=== PATIENT | female | born 1955 | race Caucasian/White ===

== ENCOUNTER → 2018-04-16 15:42 | Outpatient (CLI) | payer OTHER, SELFPAY ==
[2018-04-16 15:18] VITALS: BMI 22.6
--- NOTE | 2018-04-16 15:45 | BI_ITS ---
MAMMOGRAPHY - BILATERAL SCREENING REASON FOR EXAM: Female, 62 years old. Routine annual screening examination. PERTINENT HISTORY: Aunt with breast cancer. TECHNIQUE: Digital bilateral breast maite (3D mammographic acquisition) in the CC and MLO projections. 2-D mediolateral oblique (MLO) and craniocaudad (CC) views of both breasts were obtained. CAD: Full Field Digital Mammography with Computer Added Detection was performed. COMPARISON: Comparison is made with prior study dated April 11, 2017. FINDINGS: Breast Composition: The breasts are heterogeneously dense, which may obscure small masses. There are no dominant masses or suspicious calcifications. No other significant abnormalities are identified. There has been no significant change since the prior study. BI/SCREENING MAMM (CAD), BILAT IMPRESSION: Stable bilateral screening mammogram. Yearly follow-up mammogram recommended. (A) ASSESSMENT CATEGORY: BIRADS Category 1: Negative. A letter regarding these results will be sent to the patient by the facility within 30 days. Approximately 10% of breast cancers are not detected by mammography. A normal mammogram should not delay biopsy of a clinically suspicious abnormality. [id number] Electronically Signed: Torres Toussaint MD at 8:26 EST Tel [phone], Service support ,
--- OUTSIDE RECORDS SUMMARY | 2018-06-02 13:32 | XMS RPT_ITS ---
:1955 Author Organization OH[facility] Care Team Providers Name Role Phone ELIZA MAGAÑA Attending Unavailable SERGE SERVIN (PT) Attending Unavailable ELIZA MAGAÑA Referring Unavailable SERGE SERVIN (PT) Attending Unavailable ELIZA MAGAÑA Referring Unavailable Pricilla Live Attending Unavailable King, Mohan Primary Care Unavailable Maria TPricilla Attending Unavailable King, Mohan Referring Unavailable Maria T, Molly Attending Unavailable Maria TPricilla Referring Unavailable King, Mohan Primary Care Unavailable [place] Attending Unavailable King, Mohan Referring Unavailable King, Mohan Primary Care Unavailable PROBLEMS PROBLEMS DATE TYPE CONDITION / CODE ATTENDING STATUS SOURCE 04/17/2018 Unknown Z00.00 - Encounter Pricilla Live Active [place] for general adult [facility] medical examination Hospital without abnormal Repository findings / Z00.00(ICD-10) 04/17/2018 Unknown R53.83 - Other Maria TPricilla terrell Active [facility] fatigue / Community R53.83(ICD-10) Hospital Repository 04/16/2018 Unknown Z01.411 - Encounter Pricilla Live Active [place] for gynecological [facility] examination [facility] (general) (routine) Repository with abnormal findings / Z01.411(ICD-10) 01/29/2018 Active Metatarsalgia, GOLIAS, SERGE Active [facility] right foot / (PT) [facility] [place] M77.41(ICD-10) Repository 01/29/2018 Active Metatarsalgia, left GOLIAS, SERGE Active [facility] foot / (PT) [facility] [place] M77.42(ICD-10) Repository 03/04/2018 Active Posterior tibial GOLIAS, SERGE Active [facility] tendinitis, (PT) [facility] [place] unspecified leg / Repository M76.829(ICD-10) 01/07/2018 Active Pain, unspecified / NA Active [facility] R52(ICD-10) [facility] [place] Repository 04/15/2017 Unknown N94.9 - Unspecified [place], Molly Active [facility] condition Community associated with Hospital female genital Repository organs and menstrual cycle / N94.9(ICD-10) 04/15/2017 Unknown Z12.4 - Encounter Pricilla Live Active [place] for screening for Community malignant neoplasm Hospital of cervix / Repository Z12.4(ICD-10) PROCEDURES PROCEDURES No Procedure Records FoundRESULTS RESULTS PROGRESS Observed: 04/25/2018 Status: COMPLETED Source: [place] 8:54 AM [facility] RE[facility] HNO ID: [id number] Author: Shanthi Patel Service: (none) Author Type: Nurse Practitioner Type: Progress Notes Filed: 04/25/2018 9:10 AM Note Text: Subjective HPI Pt presents with c/o nasal congestion, nasal pressure, post nasal drip x 3 days. Pt was evaluated and treated by ENT on 04/23 for left bloody nose. Had cauterization. No bleeding since procedure. Was instructed to use afrin if nasal bleeding returned. Denies fever, chills, dyspnea, wheezing. Occasional dry, nonproductive cough. Has been taking mucinex Is leaving town today to meet 1 week old granddaughter. Review of Systems Constitutional: Negative for chills and fever. HENT: Positive for congestion. Negative for ear discharge, ear pain, sinus pain, sore throat and tinnitus. Respiratory: Positive for cough. Negative for sputum production, shortness of breath and wheezing. Cardiovascular: Negative for chest pain. Skin: Negative for rash. Neurological: Negative for headaches. Objective Physical Exam Constitutional: She is oriented to person, place, and time and well-developed, well-nourished, and in no distress. No distress. HENT: Head: Normocephalic. Right Ear: Hearing, tympanic membrane, external ear and ear canal normal. Left Ear: Hearing, tympanic membrane, external ear and ear canal normal. Nose: Nose normal. Right sinus exhibits no maxillary sinus tenderness and no frontal sinus tenderness. Left sinus exhibits no maxillary sinus tenderness and no frontal sinus tenderness. Mouth/Throat: Uvula is midline, oropharynx is clear and moist and mucous membranes are normal. No oropharyngeal exudate, posterior oropharyngeal edema, posterior oropharyngeal erythema or tonsillar abscesses. Eyes: Pupils are equal, round, and reactive to light. Conjunctivae are normal. Right eye exhibits no discharge. Left eye exhibits no discharge. Neck: Neck supple. Cardiovascular: Normal rate, regular rhythm and normal heart sounds. Exam reveals no gallop and no friction rub. No murmur heard. Pulmonary/Chest: Effort normal and breath sounds normal. No accessory muscle usage. No tachypnea. No respiratory distress. She has no decreased breath sounds (CTA, good air movement throughout, no cough noted during exam.). She has no wheezes. She has no rhonchi. She has no rales. Lymphadenopathy: She has no cervical adenopathy. Neurological: She is alert and oriented to person, place, and time. Skin: Skin is warm. She is not diaphoretic. BP 120/84 Pulse 84 Temp 37.3 ?C (99.1 ?F) (Tympanic) Resp 14 Wt 64 kg (141 lb) LMP 06/22/2007 BMI 22.76 kg/m? .Patient presents with: sinus pressure: x3 days PAST MEDICAL HISTORY Diagnosis Date - Arthritis knee cartilage - Basal cell carcinoma - History of torn meniscus of left knee 04/12/2015 surgery 04/12/2015 - IRON DEFIC ANEMIA NOS 12/15/2006 - Malignant melanoma of skin 03/24/09 Back- follows w/Dr. Comer - Squamous cell carcinoma - Unspecified constipation PAST SURGICAL HISTORY Procedure Laterality Date - COLONOSCOP W/ OR W/O [facility] SPEC 02/09/2010 Colonoscopy - KNEE SCOPE,DIAGNOSTIC 08/01/2008 Arthroscopy, knee - LEG VEIN LEFT 07/2012 laser ablation of veins on both legs - melanoma skin 03/24/09 malignant- back, Dr. Rodriguez removed - PAST SURGICAL HISTORY OF 2003 BASAL CELL CARCINOMA REMOVED FROM HER BACK - PAST SURGICAL HISTORY OF 2005 left shoulder surgery - REMOVAL OF TONSILS,<14 Y/O had done as an adult - REPAIR ROTATOR CUFF,ACUTE 2003 Rotator cuff repair RIGHT SHOULDER ALLERGIES Patient has no known allergies. MEDICATIONS CALCIUM 500 MG TAB Take one(1) tablet twice daily. multivitamin tablet Take 1 tablet by mouth once daily. pseudoephedrine-guaiFENesin (MUCINEX D) 60-600 mg per tablet Take 1 tablet by mouth every 12 hours as needed for Cold/Allergy Symptoms. azithromycin (ZITHROMAX Z-MED) 250 mg tablet Take 2 tablets by mouth day one, then 1 tablet daily until gone. benzonatate (TESSALON PERLES) 100 mg capsule Take 1 capsule by mouth three times daily as needed. celecoxib (CELEBREX) 100 mg capsule Take 1 capsule by mouth once daily. fluticasone (FLONASE) 50 mcg/actuation nasal spray Use 2 Sprays in each nostril once daily. Rinse mouth after use. guaiFENesin (MUCINEX) 600 mg 12 hr tablet Take 1 tablet by mouth twice daily. predniSONE (DELTASONE) 20 mg tablet Take 1 tablet by mouth once daily for 5 days. Take daily with food. FAMILY HISTORY Problem Relation Age of Onset - Coronary Artery Disease Father - Diabetes Father - other (hypotension [Other]) Mother - Heart Mother - Alzheimer's Disease Mother - other (multiple myeloma [Other]) Father - Breast Cancer Maternal Aunt strong breast cancer on maternal side - other (heart disease [Other]) Sister - Diabetes Brother x 2 - Colon Cancer Brother Social History Substance Use Topics - Smoking status: Never Smoker - Smokeless tobacco: Never Used - Alcohol use Yes Comment: occasionally ASSESSMENT/PLAN: 1. Viral URI with cough - ICD9: 465.9, ICD10: J06.9, B97.89 - Discussed viral etiology and rationale for treatment. - Symptomatic treatment with prn analgesia - Supportive care with fluids and rest - Follow up in 3-5 days if symptoms persist or sooner if worsening of symptoms - BENZONATATE 100 MG CAPSULE - PREDNISONE 20 MG TABLET - FLUTICASONE 50 MCG/ACTUATION NASAL SPRAY,SUSPENSION Reviewed Viral URI education and tx supportive care. Explained contagious and risks to . Pt verbalizes understanding. The patient is instructed to return or seek emergency treatment if symptoms become worse or with any acute change in condition. The patient verbalizes understanding and is in agreement with plan of care. Shanthi Patel CNP CNOV Observed: 04/25/2018 Status: COMPLETED Source: [place] 8:15 AM [facility] REPOSITORY [facility] ([id number]) 1955 F Date Time Provider Department 04/25/18 8:15 AM SHANTHI PATEL RONDA During your visit today, we recorded the following information about you: Temperature Pulse Respiration Blood pressure 99.1 degrees 84/minute 14/minute 120/84 Weight 64 kg Shanthi Patel APRN.CNP 04/25/2018 8:34 AM Signed COLD AND SINUS PATIENT INSTRUCTIONS As a decongestant: Use a nasal saline 3 times daily Directions; 1-2 quirts in each nostril Saline suggestions; [place] or [place] or Salt and Water At bedtime to help with congestion: Use a cool mist vaporizer May use Vicks Vapor Rub on the chest Elevate the head to aid with coughing post nasal drip Shanthi Patel APRN.CNP 04/25/2018 9:10 AM Signed Subjective HPI Pt presents with c/o nasal congestion, nasal pressure, post nasal drip x 3 days. Pt was evaluated and treated by ENT on 04/23 for left bloody nose. Had cauterization. No bleeding since procedure. Was instructed to use afrin if nasal bleeding returned. Denies fever, chills, dyspnea, wheezing. Occasional dry, nonproductive cough. Has been taking mucinex Is leaving town today to meet 1 week old granddaughter. Review of Systems Constitutional: Negative for chills and fever. HENT: Positive for congestion. Negative for ear discharge, ear pain, sinus pain, sore throat and tinnitus. Respiratory: Positive for cough. Negative for sputum production, shortness of breath and wheezing. Cardiovascular: Negative for chest pain. Skin: Negative for rash. Neurological: Negative for headaches. Objective Physical Exam Constitutional: She is oriented to person, place, and time and well-developed, well-nourished, and in no distress. No distress. HENT: Head: Normocephalic. Right Ear: Hearing, tympanic membrane, external ear and ear canal normal. Left Ear: Hearing, tympanic membrane, external ear and ear canal normal. Nose: Nose normal. Right sinus exhibits no maxillary sinus tenderness and no frontal sinus tenderness. Left sinus exhibits no maxillary sinus tenderness and no frontal sinus tenderness. Mouth/Throat: Uvula is midline, oropharynx is clear and moist and mucous membranes are normal. No oropharyngeal exudate, posterior oropharyngeal edema, posterior oropharyngeal erythema or tonsillar abscesses. Eyes: Pupils are equal, round, and reactive to light. Conjunctivae are normal. Right eye exhibits no discharge. Left eye exhibits no discharge. Neck: Neck supple. Cardiovascular: Normal rate, regular rhythm and normal heart sounds. Exam reveals no gallop and no friction rub. No murmur heard. Pulmonary/Chest: Effort normal and breath sounds normal. No accessory muscle usage. No tachypnea. No respiratory distress. She has no decreased breath sounds (CTA, good air movement throughout, no cough noted during exam.). She has no wheezes. She has no rhonchi. She has no rales. Lymphadenopathy: She has no cervical adenopathy. Neurological: She is alert and oriented to person, place, and time. Skin: Skin is warm. She is not diaphoretic. BP 120/84 Pulse 84 Temp 37.3 ?C (99.1 ?F) (Tympanic) Resp 14 Wt 64 kg (141 lb) LMP 06/22/2007 BMI 22.76 kg/m? .Patient presents with: sinus pressure: x3 days PAST MEDICAL HISTORY Diagnosis Date - Arthritis knee cartilage - Basal cell carcinoma - History of torn meniscus of left knee 04/12/2015 surgery 04/12/2015 - IRON DEFIC ANEMIA NOS 12/15/2006 - Malignant melanoma of skin 03/24/09 Back- follows w/Dr. Comer - Squamous cell carcinoma - Unspecified constipation PAST SURGICAL HISTORY Procedure Laterality Date - COLONOSCOP W/ OR W/O [facility] SPEC 02/09/2010 Colonoscopy - KNEE SCOPE,DIAGNOSTIC 08/01/2008 Arthroscopy, knee - LEG VEIN LEFT 07/2012 laser ablation of veins on both legs - melanoma skin 03/24/09 malignant- back, Dr. Rodriguez removed - PAST SURGICAL HISTORY OF 2003 BASAL CELL CARCINOMA REMOVED FROM HER BACK - PAST SURGICAL HISTORY OF 2005 left shoulder surgery - REMOVAL OF TONSILS,<14 Y/O had done as an adult - REPAIR ROTATOR CUFF,ACUTE 2003 Rotator cuff repair RIGHT SHOULDER ALLERGIES Patient has no known allergies. MEDICATIONS CALCIUM 500 MG TAB Take one(1) tablet twice daily. multivitamin tablet Take 1 tablet by mouth once daily. pseudoephedrine-guaiFENesin (MUCINEX D) 60-600 mg per tablet Take 1 tablet by mouth every 12 hours as needed for Cold/Allergy Symptoms. azithromycin (ZITHROMAX Z-MED) 250 mg tablet Take 2 tablets by mouth day one, then 1 tablet daily until gone. benzonatate (TESSALON PERLES) 100 mg capsule Take 1 capsule by mouth three times daily as needed. celecoxib (CELEBREX) 100 mg capsule Take 1 capsule by mouth once daily. fluticasone (FLONASE) 50 mcg/actuation nasal spray Use 2 Sprays in each nostril once daily. Rinse mouth after use. guaiFENesin (MUCINEX) 600 mg 12 hr tablet Take 1 tablet by mouth twice daily. predniSONE (DELTASONE) 20 mg tablet Take 1 tablet by mouth once daily for 5 days. Take daily with food. FAMILY HISTORY Problem Relation Age of Onset - Coronary Artery Disease Father - Diabetes Father - other (hypotension [Other]) Mother - Heart Mother - Alzheimer's Disease Mother - other (multiple myeloma [Other]) Father - Breast Cancer Maternal Aunt strong breast cancer on maternal side - other (heart disease [Other]) Sister - Diabetes Brother x 2 - Colon Cancer Brother Social History Substance Use Topics - Smoking status: Never Smoker - Smokeless tobacco: Never Used - Alcohol use Yes Comment: occasionally ASSESSMENT/PLAN: 1. Viral URI with cough - ICD9: 465.9, ICD10: J06.9, B97.89 - Discussed viral etiology and rationale for treatment. - Symptomatic treatment with prn analgesia - Supportive care with fluids and rest - Follow up in 3-5 days if symptoms persist or sooner if worsening of symptoms - BENZONATATE 100 MG CAPSULE - PREDNISONE 20 MG TABLET - FLUTICASONE 50 MCG/ACTUATION NASAL SPRAY,SUSPENSION Reviewed Viral URI education and tx supportive care. Explained contagious and risks to . Pt verbalizes understanding. The patient is instructed to return or seek emergency treatment if symptoms become worse or with any acute change in condition. The patient verbalizes understanding and is in agreement with plan of care. Shanthi Patel CNP Referring Provider: SELF [200] Allergies As of Date: 04/25/2018 (No Known Allergies) Date Reviewed: 04/25/2018 Reviewed by: Brittaney Hutton Ma - Fully Assessed Reason for Visit: sinus pressure [Other] Cmt: x3 days Primary Visit Diagnosis:Viral URI with cough [J06.9, B97.89] Order(s):benzonatate (TESSALON PERLES) 100 mg capsuleTake 1 capsule by mouth three times daily as needed.Disp: 40 capsuleRfl: 0 predniSONE (DELTASONE) 20 mg tabletTake 1 tablet by mouth once daily for 5 days. Take daily with food.Disp: 10 tabletRfl: 0 fluticasone (FLONASE) 50 mcg/actuation nasal sprayUse 2 Sprays in each nostril once daily. Rinse mouth after use.Disp: 1 BottleRfl: 1 Prescriptions as of 04/25/2018 Sig: * CALCIUM 500 MG TABLET Take one(1) tablet twice tuan* MULTIVITAMIN TABLET Take 1 tablet by mouth once d* PSEUDOEPHEDRINE-GUAIFENESIN E* Take 1 tablet by mouth every * AZITHROMYCIN 250 MG TABLET Take 2 tablets by mouth day o* Patient not taking: Reported on 04/25/2018 BENZONATATE 100 MG CAPSULE Take 1 capsule by mouth three* CELECOXIB 100 MG CAPSULE Take 1 capsule by mouth once * Patient not taking: Reported on 04/25/2018 FLUTICASONE 50 MCG/ACTUATION * Use 2 Sprays in each nostril * GUAIFENESIN ER 600 MG TABLET,* Take 1 tablet by mouth twice * Patient not taking: Reported on 04/25/2018 PREDNISONE 20 MG TABLET Take 1 tablet by mouth once d* Problem List As Of Date 04/25/2018 Noted Resolved Iron deficiency anemia, unspecified [D50.9] INVALID FOR*03/23/2015 Other seborrheic keratosis [L82.1] INVALID FOR*03/23/2015 ATROPHIC VAGINITIS [N95.2] INVALID FOR* RECTOCELE [N81.6] INVALID FOR* Disorder of bone and cartilage, unspecified [M8*INVALID FOR*02/09/2013 Calcaneal spur [M77.30] INVALID FOR*03/23/2015 Heel pain [M79.673] INVALID FOR*03/23/2015 Elevated cholesterol [E78.00] INVALID FOR* Osteopenia [M85.80] INVALID FOR* Metatarsalgia of both feet [M77.41, M77.42] INVALID FOR* Posterior tibial tendon dysfunction [M76.829] INVALID FOR* Other instructions from your clinician: COLD AND SINUS PATIENT INSTRUCTIONS As a decongestant: Use a nasal saline 3 times daily Directions; 1-2 quirts in each nostril Saline suggestions; [place] or [place] or Salt and Water At bedtime to help with congestion: Use a cool mist vaporizer May use Vicks Vapor Rub on the chest Elevate the head to aid with coughing post nasal drip Prescriptions ordered this encounter Disp Refills Start End BENZONATATE 100 MG CAPSULE 40 c* 0 04/25/2018 Route: ORAL Sig: Take 1 capsule by mouth three times daily as needed. PREDNISONE 20 MG TABLET 10 t* 0 04/25/2018 04/30/2018 Route: ORAL Sig: Take 1 tablet by mouth once daily for 5 days. Take daily with food. FLUTICASONE 50 MCG/ACTUATION NASAL S* 1 French* 1 04/25/2018 Route: EACH NOSTRIL Sig: Use 2 Sprays in each nostril once daily. Rinse mouth after use. Encounter Status:Closed by SHANTHI PATEL CNP on 04/25/18 LIPID PROFILE Collected: 04/17/2018 Status: F Source: [place] 7:24 AM [facility] [place] TYPE CODE TESTS RESULT OUT OF RANGE REFERENCE UNITS LAB L501.4900 200 mg/dL Normal CHOL 196 Result Comment: <200 mg/dL Desirable 200-240 mg/dL Borderline >240 mg/dL High Risk LAB L501.5000 mg/dL Normal TRIG 40 Result Comment: The drugs N-Acetylcysteine and Metamizole may falsely depress this assay. Serum Triglycerides Reference Interval Normal <150 mg/dL Borderline high 150 - 199 mg/dL High 200 - 499 mg/dL Very High > or = 500 mg/dL LAB L501.6400 mg/dL Normal HDL 98 Result Comment: The drugs N-Acetylcysteine and Metamizole may falsely depress this assay. Reference Range HDL <40 mg/dL Low HDL Cholesterol HDL >or= 60 mg/dL High HDL Cholesterol LAB L501.6500 0-130 mg/dL Normal LDL 90 LAB L501.6600 5-40 mg/dL Normal VLDL 8 Performed By: #### L500.4100, L501.0100, L501.9520 #### [facility] [address] [place], [address] GLUCOSE Collected: 04/17/2018 Status: F Source: [place] 7:24 AM [facility] TYPE CODE TESTS RESULT OUT OF RANGE REFERENCE UNITS LAB L501.0100 74-106 mg/dL Normal GLU 105 Result Comment: Fasting Glucose result from 100 to 125 mg/dL suggests IMPAIRED HOMEOSTASIS per A.D.A. criteria. Please note revised GLUCOSE reference range effective 2017. Performed By: #### L500.4100, L501.0100, L501.9520 #### [facility] [address] [place], [address] THYROID STIM HORMONE Collected: 04/17/2018 Status: F Source: [place] (TSH) 7:24 AM [facility] TYPE CODE TESTS RESULT OUT OF RANGE REFERENCE UNITS LAB L501.9520 0.358-3.74 uIU/mL Normal TSH 3.45 Performed By: #### L500.4100, L501.0100, L501.9520 #### [facility] [address] [place], [address] SCREENING MAMM (CAD), Observed: 04/16/2018 Status: F Source: [place] BIL[place] 3:45 PM [facility] Services [address] [place] [address] SCREENING MAMM (CAD), BILAT MR#: [id number] Acct: [id number] Name: MARY GARCIA Rep #: [id number] : 1955 F 62 From: Torres Toussaint MD PCP: Mohan Torres, Status: REG CLI Study: SCREENING MAMM (CAD), BILAT Date of Exam: 04/16/18 Exam# [id number] Ordering Dr: Pricilla Live RAPIER INSERTION LOOM FIXER-C MAMMOGRAPHY - BILATERAL SCREENING REASON FOR EXAM: Female, 62 years old. Routine annual screening examination. PERTINENT HISTORY: Aunt with breast cancer. TECHNIQUE: Digital bilateral breast maite (3D mammographic acquisition) in the CC and MLO projections. 2-D mediolateral oblique (MLO) and craniocaudad (CC) views of both breasts were obtained. CAD: Full Field Digital Mammography with Computer Added Detection was performed. COMPARISON: Comparison is made with prior study dated April 11, 2017. FINDINGS: Breast Composition: The breasts are heterogeneously dense, which may obscure small masses. There are no dominant masses or suspicious calcifications. No other significant abnormalities are identified. There has been no significant change since the prior study. BI/SCREENING MAMM (CAD), BILAT IMPRESSION: Stable bilateral screening mammogram. Yearly follow-up mammogram recommended. (A) ASSESSMENT CATEGORY: BIRADS Category 1: Negative. A letter regarding these results will be sent to the patient by the facility within 30 days. Approximately 10% of breast cancers are not detected by mammography. A normal mammogram should not delay biopsy of a clinically suspicious abnormality. 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 Is patient in pain?: No Allergies No Known Allergies Allergy (Verified 04/16/18 15:18) Medications calcium carbonate 500 mg calcium (1,250 mg) tablet 500 mg PO BID tab 04/15/17 [History Confirmed 04/15/17] celecoxib 200 mg capsule 200 mg PO QDAY 04/15/17 [History Confirmed 04/15/17] Is last menstrual period known: No Post menopausal: Yes Patient : No : No PFSH Surgical History H/O arthroscopic knee surgery (Acute) H/O rotator cuff surgery (Acute) Total knee replacement status (Acute) Family History Father Diabetes Heart disease Multiple myeloma Mother Osteoporosis Alzheimers disease Aunt Breast cancer 3 maternal aunts Social History Smoking Status: Never smoker alcohol intake: current substance use type: does not use caffeine: Yes what type of physical activity do you participate in: aerobics frequency: 5-6 times per week seatbelt use: always additional social history: [place]- 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 DateName GA/Weeks Outcome Route Bth WeighInfant GeLabor LgtAnesthesiDel LocatProvider FOB t n h a n HPI ANNUAL: Details: MARY GARCIA is a 62 year old who presents for annual exam. NO concerns. Retiring next week Last PAP: 2017 History of abnormal PAP: no Last mammogram: today, pending History of abnormal mammogram: no Colon cancer screenin Female Reproductive History Questions: Metorrhagia: No, Sexually active: Yes, Dyspareunia: No, PCB: No ROS Const Constitutional: Denies fatigue, weight gain or weight loss Cardio Card: Denies chest pain Resp Resp: Denies cough or shortness of breath with activity GI GI: Denies abdominal pain, constipation, change in stools, vomiting or bloating : Reports as per HPI; denies urinary frequency, pelvic pain, urinary urgency, vaginal discharge, vaginal itching, urinary incontinence or difficulty urinating Exam Const General: cooperative, healthy appearing, no acute distress, well developed Orientation: alert, oriented to person, oriented to place HENMT Head: normal to inspection Neck Neck: normal visual inspection Thyroid: thyroid normal Lymphatic: no lymphadenopathy noted Chest Breast inspection: normal inspection of the breasts, normal inspection of the axillae Breast palpation: normal palpation of the breasts, normal palpation of the axillae, no axillary lymphadenopathy Resp Effort AND Inspection: normal respiratory effort GI Palpation: soft, nontender, no masses Rectal Exam: deferred External Female Exam: normal external appearance, normal appearance of the urethra Urethra: normal appearance of the urethra, normal palpation Speculum Exam - Vagina: normal appearance of the vagina, normal vaginal discharge Speculum Exam - Cervix: normal appearance of the cervix Bimanual Exam- Vagina AND Uterus: normal bimanual exam, uterine size normal, uterine shape normal, uterus non-tender Bimanual Exam- Adnexa, other: normal adnexae, no adnexal masses, adnexae non-tender, pelvic support normal Pelvic Support: normal Neuro General: alert, oriented x3 Psych Affect: normal affect Assessment AND Plan Problems 1. 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 [place] [address] OFFICE VISIT Date of Service: 04/15/17 MR#: [id number] Acct: [id number] Name: MARY GARCIA Rep #: [id number] : 1955 Provider: SABRINA Live Age/Sex: 61/F [place] [facility] [place] Signed with Addenda ADDENDUM by SABRINA Live on 03/10/18 at 0941 Addendum entered and electronically signed by SHANNA Henry 03/10/18 09:41: Rectal exam was deferred. No masses palpated Assessment AND Plan 1. Encounter for gynecological examination with abnormal finding Z01.411; Z01.411 Plan - SHANNA Henry Reviewed diet and exercise Pap: thin prep pap and HPV collected Normal recent mammogram Colonoscopy up to date RTO 1 year, prn with problems 2. Adnexal mass N94.9 Jorge - SHANNA Henry Pelvic ultrasound and TV probe if needed. Consider stool in colon Orders Orders: 3. 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 DateName GA/Weeks Outcome Route Bth WeighInfant GeLabor LgtAnesthesiDel LocatProvider FOB t n h a n PFSH Medical History Adnexal mass (Acute) Encounter for screening for cervical cancer (Acute) Routine gynecological examination (Acute) Surgical History H/O arthroscopic knee surgery (Acute) H/O rotator cuff surgery (Acute) Total knee replacement status (Acute) Family History Father Diabetes Heart disease Multiple myeloma Mother Osteoporosis Alzheimers disease Aunt Breast cancer 3 maternal aunts Social History Smoking Status: Never smoker alcohol intake: current substance use type: does not use caffeine: Yes what type of physical activity do you participate in: aerobics frequency: 5-6 times per week seatbelt use: always additional social history: [place]- 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 Denies concerns. Due for pap-never had abnormal. Mammogram recent. Colonoscopy: 2010: repeat 10 years ROS Const Constitutional: Denies fatigue, weight gain or weight loss Cardio Card: Denies chest pain Resp Resp: Denies cough or shortness of breath with activity GI GI: Denies abdominal pain, constipation, change in stools, vomiting or bloating : Reports as per HPI; denies urinary frequency, pelvic pain, urinary urgency, vaginal discharge, vaginal itching, urinary incontinence or difficulty urinating Exam Const General: cooperative, healthy appearing, no acute distress, well developed Orientation: alert, oriented to person, oriented to place [facility] Head: normal to inspection Neck Neck: normal visual inspection Thyroid: thyroid normal Lymphatic: no lymphadenopathy noted Chest Breast inspection: normal inspection of the breasts, normal inspection of the axillae Breast palpation: normal palpation of the breasts, normal palpation of the axillae, no axillary lymphadenopathy Resp Effort AND Inspection: normal respiratory effort Auscultation: clear to auscultation bilaterally Cardio Rate: regular rate Rhythm: regular rhythm GI Palpation: soft, nontender, no masses Rectal Exam: mass, deferred External Female Exam: normal external appearance, normal appearance of the urethra Urethra: normal appearance of the urethra, normal palpation Speculum Exam - Vagina: normal appearance of the vagina, normal vaginal discharge Speculum Exam - Cervix: normal appearance of the cervix Bimanual Exam- Vagina AND Uterus: uterine size normal, uterine shape normal, uterus non-tender Bimanual Exam- Adnexa, other: adnexae non-tender, pelvic support normal, no tenderness, adnexal mass (mobile 2cm mass right adnexa, nontender) Pelvic Support: normal Neuro General: alert, oriented x3 Psych Affect: normal affect Assessment AND Plan 1. Encounter for gynecological examination with abnormal finding Z01.411; Z01.411 2. Adnexal mass N94.9 Plan Pelvic ultrasound and TV probe if needed. Consider stool in colon Orders Orders: 3. Encounter for screening for cervical cancer Z12.4 Plan thin prep pap with HPV collected 04/15/17 8153 <Electronically signed by Pricilla OTERO> Date Pricilla OTERO Cosigner Signature: Date (if applicable) CC: PROGRESS Observed: 03/04/2018 Status: COMPLETED Source: [place] 6:59 PM [facility] REPOSITORY HNO ID: [id number] Author: Serge (Pt) Gareth Service: (none) Author Type: Physical Therapist Type: Progress Notes Filed: 03/04/2018 7:03 PM Note Text: [facility] DME ISSUE NOTE Patient identified by name and date: Yes SUBJECTIVE: Mary Garcia is a 62 year old female seen today for fitting and pickup of custom foot orthotics. DME Delivery: Pt was educated on wear schedule and care of custom foot orthotics. Pt was educated on the option of having orthotics refurbished as needed in the future as long as shell is performing it's intended function well. Pt was educated on approximate cost of refurbishing orthotics and an approximate time frame when this might be necessary. Pt was urged to follow the wear schedule and to call with any questions or concerns. Pt was instructed to start with wearing orthotics one hour the first day and then to add one hour of wear time per day until multimedia instructional designer wear is achieved. Pt was educated on how to remove insoles from shoes and then place orthotics in shoes. The fit of orthotics was assessed with pt standing, with and without shoes. The comfort of orthotics was assessed with pt standing and walking with orthotics in shoes. Pt denied any rubbing or pinching and felt that fit of custom orthotics was correct. Contact information for this therapist was provided to patient. Custom biomechanical foot orthotics with serial number: #[id number] were issued to patient and proof of receipt form signed by pt and therapist. All specifications for custom foot orthotics can be found in orthotic evaluation visit note. Education: Learning preferences: Explanation, Demonstration, Performance and Printed Materials Barriers: No barriers Learning/educational needs: Orthotic Fit Education Provided: See Treatment Below Audience: Patient Method of education: Explanation, Demonstration, Performance and Printed Materials Response: Applied knowledge, Demonstrated skill and Verbalized understanding Planned Interventions: Follow up as needed for brace fitting/issues. Billing:[facility]: Equipment: [id number] pair of custom foot orthotics No charge for time. Total time: 20 minutes Serge Servin PT CNTHERAPY Observed: 03/04/2018 Status: COMPLETED Source: [place] 6:15 PM [facility] REPOSITORY OT/PT/Speech Visit (PTWS) MARY GARCIA ([id number]) 1955 F Date Time Provider Department 03/04/18 6:15 PM [facility] (PT) PTWS Date Time Provider Department Center 03/04/2018 6:15 PM [id number], BRENT (PT) PTWS [facility] [place] Reason for Visit: PT Discharge [752] Primary Visit Diagnosis:Posterior tibial tendon dysfunction [M76.829] Other Visit Diagnosis:Metatarsalgia of both feet [M77.41, M77.42] Allergies As of Date: 03/04/2018 (No Known Allergies) Date Reviewed: 01/07/2018 Reviewed by: Brittaney Hutton Ma - Fully Assessed Prescriptions as of 03/04/2018 Sig: PSEUDOEPHEDRINE-GUAIFENESIN E* Take 1 tablet by mouth every * AZITHROMYCIN 250 MG TABLET Take 2 tablets by mouth day o* GUAIFENESIN ER 600 MG TABLET,* Take 1 tablet by mouth twice * CELECOXIB 100 MG CAPSULE Take 1 capsule by mouth once * MULTIVITAMIN TABLET Take 1 tablet by mouth once d* * CALCIUM 500 MG TABLET Take one(1) tablet twice tuan* Progress Notes: Serge Servin PT 03/04/2018 7:03 PM Signed [facility] DME ISSUE NOTE Patient identified by name and date: Yes SUBJECTIVE: Mary Garcia is a 62 year old female seen today for fitting and pickup of custom foot orthotics. DME Delivery: Pt was educated on wear schedule and care of custom foot orthotics. Pt was educated on the option of having orthotics refurbished as needed in the future as long as shell is performing it's intended function well. Pt was educated on approximate cost of refurbishing orthotics and an approximate time frame when this might be necessary. Pt was urged to follow the wear schedule and to call with any questions or concerns. Pt was instructed to start with wearing orthotics one hour the first day and then to add one hour of wear time per day until multimedia instructional designer wear is achieved. Pt was educated on how to remove insoles from shoes and then place orthotics in shoes. The fit of orthotics was assessed with pt standing, with and without shoes. The comfort of orthotics was assessed with pt standing and walking with orthotics in shoes. Pt denied any rubbing or pinching and felt that fit of custom orthotics was correct. Contact information for this therapist was provided to patient. Custom biomechanical foot orthotics with serial number: #[id number] were issued to patient and proof of receipt form signed by pt and therapist. All specifications for custom foot orthotics can be found in orthotic evaluation visit note. Education: Learning preferences: Explanation, Demonstration, Performance and Printed Materials Barriers: No barriers Learning/educational needs: Orthotic Fit Education Provided: See Treatment Below Audience: Patient Method of education: Explanation, Demonstration, Performance and Printed Materials Response: Applied knowledge, Demonstrated skill and Verbalized understanding Planned Interventions: Follow up as needed for brace fitting/issues. Billing:[facility]: Equipment: L3020 pair of custom foot orthotics No charge for time. Total time: 20 minutes Serge Servin PT Letter Text [address] [place] [address] PROOF OF ORDER AND PRESCRIPTION RECEIPT March 04, 2018 Quantity: 1 Pair Mary Garcia Item(s): Custom Foot Orthotics- [id number] I have received this date: March 04, 2018. That has been prescribed by: Dr. Eliza Magaña I have been informed that I can purchase this product elsewhere, however, I have elected to receive the above listed new durable medical equipment as prescribed. I have been informed that in the event I received Diabetic Shoes, they can not be returned and are not refundable. I have been given instruction on the use of the custom foot orthotic devices indicated above and understand the intended purpose as well as limitations of the device. I also understand that the [facility] will not be responsible for any modifications to this device not ordered by the prescribing marketing sales representative(s) of the [facility]. I understand that should I have any additional questions or concerns to call the telephone number listed above for assistance Signature of Patient/Recipient or Authorized Importer Or Exporter Date Signature of [facility] Importer Or Exporter Date [employer]Star Federal Guidelines: [email or web address] 08/05/05 A copy of this letter has been given to the above mentioned patient. PROGRESS Observed: 01/29/2018 Status: COMPLETED Source: [place] 11:55 AM [facility] REPOSITORY O ID: [id number] Author: Serge (Pt) Gareth Service: (none) Author Type: Physical Therapist Type: Progress Notes Filed: 01/29/2018 11:17 PM Note Text: Episode Visit Count: 1 Therapist That Will Oversee The Plan Of Care: Serge Servin PT Start of Care Date: 01/29/18 Onset Date: 07/29/17 Patient Identified by Name and Date of : Yes REHABILITATION AND SPORTS THERAPY PHYSICAL THERAPY EVALUATION PLAN OF CARE: Assessment: Mary Garcia presents with the chief complaint of B foot pain that is aggravated by WBing activities. She presents with impairments of pain and limitations with exercise. She may benefit from skilled therapy services to improve functional biomechanics of B feet/ankles via custom foot orthotics. Prognosis: Excellent Excellent due to: positive past response to therapy;good overall health status;current objective clinical presentation;within-session changes at evaluation;good support system/ coping skills Goals for Episode of Care: created on 01/29/18 through 02/26/18 Pt will be educated on proper wear schedule and care of custom biomechanical foot orthotics Pt will be provided with custom biomechanical B foot orthotics that improve foot and ankle biomechanics as intended with proper fit and function. Planned Interventions, Frequency, and Duration: Current Frequency: 1 visit Duration: 1 visit Total Number of Visits Planned: 2 (1 visit for evaluation and 1 visit for fitting and picket labor union) Planned Treatment Interventions: Orthosis / DME;Patient/Family/Caregiver Education PLAN FOR NEXT VISIT: fitting and picket labor union of custom foot orthotics Patient demonstrates good understanding of plan of care and treatment. The above goals and plan of care were discussed and agreed upon by patient/family. SUBJECTIVE: Mary Garcia is a 62 year old female seen today for intermittent pain in plantar surface of B feet that is aggravated by prolonged weight bearing activities. She received custom foot orthotics in 2011 and these worked well for many years but approximately 6 months ago it seems that the orthotics are not as effective. She reports that pain is worse when she does not wear othotics but not as pain- free with them as she was when they were first prescribed. She reports that the only change is that she had a total knee replacement in February of 2017. She has decreased her running by half since TKA. Functional Limitations: running;recreational activities;walking in the community;heavy exertion Prior Level of Function: Independent without limitations Patient Goals: decrease pain through new and more effective orthotics Intake Information: Prescription present Previous Treatment: Orthotics? Pain Score: 1/10 (1/10 currently and 3-4/10 at worst) Pain Location: Foot - Right;Foot - Left (plantar surface of both feet) Description: Aching Frequency: Intermittent Post Treatment Pain Score: No Change OBJECTIVE MEASURES WITH LEVEL OF FUNCTION: Plantar Callus Pattern: Right: none Left: none Supine: ROM: Ankle Dorsiflexion: Right: AROM:14 degrees and Left: AROM: 15 degrees Calcaneal eversion: Right: WNL Left: WNL Hallux dorsiflexion: Open chain right: >65 left: >65 Closed chain right: >9 left: >9 Alignment: Rest: Medial arch appearance: Right:High Left:High Equinus: Right:forefoot Left:forefoot Prone: Alignment: Subtalar neutral: Right: rearfoot: 14 degrees varus Forefoot: 8 degrees varus Left: Rearfoot: 7 degrees varus Forefoot: 8 degrees varus First Ray Position: Right: pf Left: pf First Ray Mobility: Right: semi-rigid Left:semi-rigid WEIGHT BEARING: Alignment: Rest: Medial arch appearance: Right: Average Left Average Calcaneal stance position: Right: rectus Left everted Knee position: Right: Straight Left Straight Subtalar Neutral: Medial arch appearance: Right High Left:High Calcaneal stance position: Right: inverted Left: inverted Forefoot position: Right: flat on ground Left: off ground Knee position: Right: straight Left straight Mobility: Hallux dorsiflexion Closed chain: Right: >9 Left >9 Midtarsal Mobility: (navicular drop) Right: norm 6-8mm Left:norm 6-8mm Rearfoot excursion: Right:<4 hypo Left: 4-6 norm FUNCTIONAL EVALUATION: Balance(SL): ability/quality Right: increased pronation Left: increased pronation Balance Excursion Test (distance/quality): *Right: Improved performance with: 8 degree rearfoot 2 degree forefoot wedges *Left: Improved performance with: 6 degree rearfoot 2 degree forefoot wedges Squat Test: Knees: valgus Right*improved with 8 degrees rearfoot 2 degree forefoot wedges Left*improved with 6 degrees rear foot 2 degree forefoot wedges Gait Assessment: Walking: no deviations currently Running: N/T Orthotic Design Request Shoe size: 9. Weight:140 pounds. Orthotic (shell): Performance RX semi flexible Plate Specifications: Heel Cup Low (12mm), Device Width Bisect 1st Posting: right: 2 degrees for forefoot Intrinsic and 5 degrees for rearfoot Extrinsic left: 2 degrees for forefoot Intrinsic and 8 degrees for rearfoot Extrinsic Additions: none Padding: Type: Poron STD Thickness:1/8 Padding Length:heels to toes Accommodations: none Top Covers: Material: leatherette STD Length:to toes Classification of foot type: Compensated rearfoot varus Education: Education Learning Preferences: Demonstration;Explanation Barriers: None Learning/educational needs: Brace Fit Education Provided: Yes, see treatment interventions for education provided Education Provided To: Patient Education Mode/Type: Demonstration;Explanation/Discussion;Literature/Printed Materials;Performance Response to Education/Teach Back: States/Identifies;Requires Review/Additional Education TREATMENT: Evaluation Evaluation Orthotics Management and Training: A thorough and complete biomechanical assessment completed and all results explained to pt in detail. Pt. was educated on the anatomy of affected area, possible source of symptoms and rationale for proposed treatment plan. A variety of different sized wedges were used as trials for posting at both forefoot and rearfoot. Pt ability with single leg stance and single leg squats was tested without wedges and compared to each trial with different size wedges. Once stability was achieved and biomechanics improved, wedge size recorded for future posting prescription. With patient prone, subtalar neutral position digital scans were made of bilateral feet. These scans and and all supporting documentation was prepared for shipment to lab so that custom foot orthotics can be fabricated. Pt was educated on the process that we will follow once custom orthotics arrive in this department and all of the patient's questions were answered. Skilled Intervention: Clinical knowledge and skills required for custom orthotic fabrication and wearing schedule Patient/Family/Caregiver Education: Precautions, purpose and use of orthosis Wearing schedule explained to patient Discussed management of any symptoms related to wearing the orthosis Billing: [facility]: Evaluation - Moderate Complexity (96901) Orthotics Management and Training ([id number]): 1:1 time: 25 minutes (2 units: 23-37 mins) Total time: 55 minutes Serge Servin PT CNTHERAPY Observed: 01/29/2018 Status: COMPLETED Source: [place] 11:30 AM [facility] REPOSITORY OT/PT/Speech Visit (PTWS) MARY GARCIA ([id number]) 1955 F Date Time Provider Department 01/29/18 11:30 AM [facility]) PTWS Date Time Provider Department Center 01/29/2018 11:30 AM [id number]-[facility]) PTRONDA [facility] [place] Reason for Visit: PT Eval [747] Patient Education [91] Visit Diagnoses:Metatarsalgia of both feet [M77.41, M77.42] Posterior tibial tendon dysfunction [M76.829] Allergies As of Date: 01/29/2018 (No Known Allergies) Date Reviewed: 01/07/2018 Reviewed by: Brittaney Hutton Ma - Fully Assessed Prescriptions as of 01/29/2018 Sig: PSEUDOEPHEDRINE-GUAIFENESIN E* Take 1 tablet by mouth every * AZITHROMYCIN 250 MG TABLET Take 2 tablets by mouth day o* GUAIFENESIN ER 600 MG TABLET,* Take 1 tablet by mouth twice * CELECOXIB 100 MG CAPSULE Take 1 capsule by mouth once * MULTIVITAMIN TABLET Take 1 tablet by mouth once d* * CALCIUM 500 MG TABLET Take one(1) tablet twice tuan* Progress Notes: Serge Servin PT 01/29/2018 11:17 PM Signed Episode Visit Count: 1 Therapist That Will Oversee The Plan Of Care: Serge Servin PT Start of Care Date: 01/29/18 Onset Date: 07/29/17 Patient Identified by Name and Date of : Yes REHABILITATION AND SPORTS THERAPY PHYSICAL THERAPY EVALUATION PLAN OF CARE: Assessment: Mary Garcia presents with the chief complaint of B foot pain that is aggravated by WBing activities. She presents with impairments of pain and limitations with exercise. She may benefit from skilled therapy services to improve functional biomechanics of B feet/ankles via custom foot orthotics. Prognosis: Excellent Excellent due to: positive past response to therapy;good overall health status;current objective clinical presentation;within-session changes at evaluation;good support system/ coping skills Goals for Episode of Care: created on 01/29/18 through 02/26/18 Pt will be educated on proper wear schedule and care of custom biomechanical foot orthotics Pt will be provided with custom biomechanical B foot orthotics that improve foot and ankle biomechanics as intended with proper fit and function. Planned Interventions, Frequency, and Duration: Current Frequency: 1 visit Duration: 1 visit Total Number of Visits Planned: 2 (1 visit for evaluation and 1 visit for fitting and picket labor union) Planned Treatment Interventions: Orthosis / DME;Patient/Family/Caregiver Education PLAN FOR NEXT VISIT: fitting and picket labor union of custom foot orthotics Patient demonstrates good understanding of plan of care and treatment. The above goals and plan of care were discussed and agreed upon by patient/family. SUBJECTIVE: Mary Garcia is a 62 year old female seen today for intermittent pain in plantar surface of B feet that is aggravated by prolonged weight bearing activities. She received custom foot orthotics in 2011 and these worked well for many years but approximately 6 months ago it seems that the orthotics are not as effective. She reports that pain is worse when she does not wear othotics but not as pain-free with them as she was when they were first prescribed. She reports that the only change is that she had a total knee replacement in February of 2017. She has decreased her running by half since TKA. Functional Limitations: running;recreational activities;walking in the community;heavy exertion Prior Level of Function: Independent without limitations Patient Goals: decrease pain through new and more effective orthotics Intake Information: Prescription present Previous Treatment: Orthotics? Pain Score: 1/10 (1/10 currently and 3-4/10 at worst) Pain Location: Foot - Right;Foot - Left (plantar surface of both feet) Description: Aching Frequency: Intermittent Post Treatment Pain Score: No Change OBJECTIVE MEASURES WITH LEVEL OF FUNCTION: Plantar Callus Pattern: Right: none Left: none Supine: ROM: Ankle Dorsiflexion: Right: AROM:14 degrees and Left: AROM: 15 degrees Calcaneal eversion: Right: WNL Left: WNL Hallux dorsiflexion: Open chain right: >65 left: >65 Closed chain right: >9 left: >9 Alignment: Rest: Medial arch appearance: Right:High Left:High Equinus: Right:forefoot Left:forefoot Prone: Alignment: Subtalar neutral: Right: rearfoot: 14 degrees varus Forefoot: 8 degrees varus Left: Rearfoot: 7 degrees varus Forefoot: 8 degrees varus First Ray Position: Right: pf Left: pf First Ray Mobility: Right: semi-rigid Left:semi-rigid WEIGHT BEARING: Alignment: Rest: Medial arch appearance: Right: Average Left Average Calcaneal stance position: Right: rectus Left everted Knee position: Right: Straight Left Straight Subtalar Neutral: Medial arch appearance: Right High Left:High Calcaneal stance position: Right: inverted Left: inverted Forefoot position: Right: flat on ground Left: off ground Knee position: Right: straight Left straight Mobility: Hallux dorsiflexion Closed chain: Right: >9 Left >9 Midtarsal Mobility: (navicular drop) Right: norm 6-8mm Left:norm 6-8mm Rearfoot excursion: Right:<4 hypo Left: 4-6 norm FUNCTIONAL EVALUATION: Balance(SL): ability/quality Right: increased pronation Left: increased pronation Balance Excursion Test (distance/quality): *Right: Improved performance with: 8 degree rearfoot 2 degree forefoot wedges *Left: Improved performance with: 6 degree rearfoot 2 degree forefoot wedges Squat Test: Knees: valgus Right*improved with 8 degrees rearfoot 2 degree forefoot wedges Left*improved with 6 degrees rear foot 2 degree forefoot wedges Gait Assessment: Walking: no deviations currently Running: N/T Orthotic Design Request Shoe size: 9. Weight:140 pounds. Orthotic (shell): Performance RX semi flexible Plate Specifications: Heel Cup Low (12mm), Device Width Bisect 1st Posting: right: 2 degrees for forefoot Intrinsic and 5 degrees for rearfoot Extrinsic left: 2 degrees for forefoot Intrinsic and 8 degrees for rearfoot Extrinsic Additions: none Padding: Type: Poron STD Thickness:1/8 Padding Length:heels to toes Accommodations: none Top Covers: Material: leatherette STD Length:to toes Classification of foot type: Compensated rearfoot varus Education: Education Learning Preferences: Demonstration;Explanation Barriers: None Learning/educational needs: Brace Fit Education Provided: Yes, see treatment interventions for education provided Education Provided To: Patient Education Mode/Type: Demonstration;Explanation/Discussion;Literature/Printed Materials;Performance Response to Education/Teach Back: States/Identifies;Requires Review/Additional Education TREATMENT: Evaluation Evaluation Orthotics Management and Training: A thorough and complete biomechanical assessment completed and all results explained to pt in detail. Pt. was educated on the anatomy of affected area, possible source of symptoms and rationale for proposed treatment plan. A variety of different sized wedges were used as trials for posting at both forefoot and rearfoot. Pt ability with single leg stance and single leg squats was tested without wedges and compared to each trial with different size wedges. Once stability was achieved and biomechanics improved, wedge size recorded for future posting prescription. With patient prone, subtalar neutral position digital scans were made of bilateral feet. These scans and and all supporting documentation was prepared for shipment to lab so that custom foot orthotics can be fabricated. Pt was educated on the process that we will follow once custom orthotics arrive in this department and all of the patient's questions were answered. Skilled Intervention: Clinical knowledge and skills required for custom orthotic fabrication and wearing schedule Patient/Family/Caregiver Education: Precautions, purpose and use of orthosis Wearing schedule explained to patient Discussed management of any symptoms related to wearing the orthosis Billing: [facility]: Evaluation - Moderate Complexity (28057) Orthotics Management and Training (34419): 1:1 time: 25 minutes (2 units: 23-37 mins) Total time: 55 minutes Serge Servin PT DEV Observed: 01/07/2018 Status: COMPLETED Source: [place] 8:40 AM [facility] REPOSITORY Office Visit (PODIWS) JOSEMARY BUTTS ([id number]) 1955 F Date Time Provider Department 01/07/18 8:40 AM ELIZA MAGAÑA During your visit today, we recorded the following information about you: Eliza Magaña DPM 01/07/2018 9:05 AM Signed ? Eliza Magaña DPM Department of Podiatry [address] [facility] [address] Dept: [phone] Dept 01/07/2018 Initial Podiatric Office Visit: HPI: Mary A Jose is a 62 year old female. Patient presents for orthotics evaluation. Currently has custom orthotics that are about 6 years old. Patient reports constant ache to bilateral feet with prolonged standing/walking without having orthotics. She would like a new pair. She is not a diabetic and she does not smoke. She has new XR to review. Patient feels that the Bottom of her feet are achy whenever she does not wear orthotics. Eliza Magaña DPM PCP: Mohan King DO PAST MEDICAL HISTORY Diagnosis Date - Arthritis knee cartilage - Basal cell carcinoma - History of torn meniscus of left knee 04/12/2015 surgery 04/12/2015 - IRON DEFIC ANEMIA NOS 12/15/2006 - Malignant melanoma of skin 03/24/09 Back- follows w/Dr. Comer - Squamous cell carcinoma - Unspecified constipation Current Outpatient Prescriptions: multivitamin tablet Take 1 tablet by mouth once daily. CALCIUM 500 MG TAB Take one(1) tablet twice daily. pseudoephedrine-guaiFENesin (MUCINEX D) 60-600 mg per tablet Take 1 tablet by mouth every 12 hours as needed for Cold/Allergy Symptoms. azithromycin (ZITHROMAX Z-MED) 250 mg tablet Take 2 tablets by mouth day one, then 1 tablet daily until gone. guaiFENesin (MUCINEX) 600 mg 12 hr tablet Take 1 tablet by mouth twice daily. celecoxib (CELEBREX) 100 mg capsule Take 1 capsule by mouth once daily. No current facility-administered medications for this visit. ALLERGIES No Known Allergies PAST SURGICAL HISTORY Procedure Laterality Date - COLONOSCOP W/ OR W/O [facility] SPEC 02/09/2010 Colonoscopy - KNEE SCOPE,DIAGNOSTIC 08/01/2008 Arthroscopy, knee - LEG VEIN LEFT 07/2012 laser ablation of veins on both legs - melanoma skin 03/24/09 malignant- back, Dr. Rodriguez removed - PAST SURGICAL HISTORY OF 2003 BASAL CELL CARCINOMA REMOVED FROM HER BACK - PAST SURGICAL HISTORY OF 2005 left shoulder surgery - REMOVAL OF TONSILS,<12 Y/O had done as an adult - REPAIR ROTATOR CUFF,ACUTE 2003 Rotator cuff repair RIGHT SHOULDER FAMILY HISTORY Problem Relation Age of Onset - Coronary Artery Disease Father - Diabetes Father - other (hypotension [Other]) Mother - Heart Mother - Alzheimer's Disease Mother - other (multiple myeloma [Other]) Father - Breast Cancer Maternal Aunt strong breast cancer on maternal side - other (heart disease [Other]) Sister - Diabetes Brother x 2 - Colon Cancer Brother Social History Marital status: Spouse name: Ishaan Garcia Years of education: 18 Number of children: 4 Occupational History 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 EYES: No diplopia or blurry vision. CARDIOVASCULAR: No chest pain, dyspnea, palpitations, orthopnea, PND, ankle edema. PULM: No dyspnea, unexplained cough. GI: No dysphagia/odynophagia, problematic reflux, constipation, diarrhea, changes in stool habits, hematochezia, melena. : No new urinary complaints, including dysuria, gross hematuria or pyuria. NEURO: No new balance problems, peripheral weakness/paresthesias or numbness of concern. MUSC-SKEL: Pain of b/l feet. PSY: No concerns regarding depression, anxiety or panic. INTEGUMENTARY: No new skin changes (rash, new or changing mole, new growth) Physical Exam: Constitutional: Pt is a well developed 62 year old female who is alert, oriented and cooperative Eyes: Following during examination. No redness or drainage. Respiratory: RR normal and nonlabored. Even breathing. No evidence of distress or shortness of breath. Psychology: Patient is engaged during conversation. Normal affect and mood. Does not appear depressed or anxious during encounter. Vascular: Dorsalis pedis and posterior tibial pulses palpable as b/l Capillary Fill time < 5 seconds to digits 1-5 b/l Skin temperature warm to warm proximal to distal b/l Hair growth present to digits Neurological: intact light touch/epicritic sensation Dermatological: Nails 1-5 b/l appear Normal. Webspaces clean and dry 1-4 b/l. Skin appears well hydrated and supple. good color, texture, turgor. Callosities absent.Open lesions absent. Wound: Not present. Musculoskeletal/Orthopaedic: Patient has pain to palpation of ball of b/l feet Foot type is pronated structurally AJ ROM is full with knee extended and flexed 1st MPJ is full when loaded and no pain or crepitus are noted with ROM. MTJ, STJ are full and free of pain and crepitus. +5/5 muscle strength dorsiflexion, plantarflexion, inversion, eversion b/l Radiographs: 3 views of b/l feet reviewed. There are accessory bones to plantar metatarsal heads. There is posterior heel spur b/l L>R. No acute fracture ASSESSMENT: (M76.829) Tibialis posterior tendinitis, unspecified laterality (primary encounter diagnosis) (M77.41, M77.42) Metatarsalgia of both feet PLAN: Patient was examined and informed of current findings Discussed pain in feet. She has orthotics and they seem to be in good shape minus the top cover. One option would be to resurface the insert vs 2nd option of replacing insert. Will place order for both and she can make decision based on cost. F/u prn. Eliza Magaña DPM Referring Provider: SELF [200] Allergies As of Date: 01/07/2018 (No Known Allergies) Date Reviewed: 01/07/2018 Reviewed by: Brittaney Hutton Ma - Fully Assessed Reason for Visit: Pain (foot) [760] Primary Visit Diagnosis:Tibialis posterior tendinitis, unspecified laterality [M76.829] Other Visit Diagnosis:Metatarsalgia of both feet [M77.41, M77.42] Order(s):CONSULT TO ORTHOTIC/PROSTHETIC [19990607] Order #: [id number]: 1 Prescriptions as of 01/07/2018 Sig: MULTIVITAMIN TABLET Take 1 tablet by mouth once d* * CALCIUM 500 MG TABLET Take one(1) tablet twice tuan* PSEUDOEPHEDRINE-GUAIFENESIN E* Take 1 tablet by mouth every * AZITHROMYCIN 250 MG TABLET Take 2 tablets by mouth day o* GUAIFENESIN ER 600 MG TABLET,* Take 1 tablet by mouth twice * CELECOXIB 100 MG CAPSULE Take 1 capsule by mouth once * Problem List As Of Date 01/07/2018 Noted Resolved Iron deficiency anemia, unspecified [D50.9] INVALID FOR*03/23/2015 Other seborrheic keratosis [L82.1] INVALID FOR*03/23/2015 ATROPHIC VAGINITIS [N95.2] INVALID FOR* RECTOCELE [N81.6] INVALID FOR* Disorder of bone and cartilage, unspecified [M8*INVALID FOR*02/09/2013 Calcaneal spur [M77.30] INVALID FOR*03/23/2015 Heel pain [M79.673] INVALID FOR*03/23/2015 Elevated cholesterol [E78.00] INVALID FOR* Osteopenia [M85.80] INVALID FOR* Disposition: Return if symptoms worsen or fail to improve. Follow-up and Disposition History Recorded Encounter Status:Closed by ELIZA MAGAÑA DPM on 01/07/18 PROGRESS Observed: 01/07/2018 Status: COMPLETED Source: [place] 8:39 AM [facility] REPOSITORY HNO ID: [id number] Author: Eliza Magaña Service: (none) Author Type: Physician Type: Progress Notes Filed: 01/07/2018 9:05 AM Note Text: ? Eliza Magaña DPM Department of Podiatry [facility] [address] [facility] [address] Dept: [phone] Dept 01/07/2018 Initial Podiatric Office Visit: HPI: Mary Garcia is a 62 year old female. Patient presents for orthotics evaluation. Currently has custom orthotics that are about 6 years old. Patient reports constant ache to bilateral feet with prolonged standing/walking without having orthotics. She would like a new pair. She is not a diabetic and she does not smoke. She has new XR to review. Patient feels that the Bottom of her feet are achy whenever she does not wear orthotics. Eliza Magaña DPM PCP: Mohan King, PAST MEDICAL HISTORY Diagnosis Date - Arthritis knee cartilage - Basal cell carcinoma - History of torn meniscus of left knee 04/12/2015 surgery 04/12/2015 - IRON DEFIC ANEMIA NOS 12/15/2006 - Malignant melanoma of skin 03/24/09 Back- follows w/Dr. Comer - Squamous cell carcinoma - Unspecified constipation Current Outpatient Prescriptions: multivitamin tablet Take 1 tablet by mouth once daily. CALCIUM 500 MG TAB Take one(1) tablet twice daily. pseudoephedrine-guaiFENesin (MUCINEX D) 60-600 mg per tablet Take 1 tablet by mouth every 12 hours as needed for Cold/Allergy Symptoms. azithromycin (ZITHROMAX Z-MED) 250 mg tablet Take 2 tablets by mouth day one, then 1 tablet daily until gone. guaiFENesin (MUCINEX) 600 mg 12 hr tablet Take 1 tablet by mouth twice daily. celecoxib (CELEBREX) 100 mg capsule Take 1 capsule by mouth once daily. No current facility-administered medications for this visit. ALLERGIES No Known Allergies PAST SURGICAL HISTORY Procedure Laterality Date - COLONOSCOP W/ OR W/O [facility] SPEC 02/09/2010 Colonoscopy - KNEE SCOPE,DIAGNOSTIC 08/01/2008 Arthroscopy, knee - LEG VEIN LEFT 07/2012 laser ablation of veins on both legs - melanoma skin 03/24/09 malignant- back, Dr. Rodriguez removed - PAST SURGICAL HISTORY OF 2003 BASAL CELL CARCINOMA REMOVED FROM HER BACK - PAST SURGICAL HISTORY OF 2005 left shoulder surgery - REMOVAL OF TONSILS,<12 Y/O had done as an adult - REPAIR ROTATOR CUFF,ACUTE 2003 Rotator cuff repair RIGHT SHOULDER FAMILY HISTORY Problem Relation Age of Onset - Coronary Artery Disease Father - Diabetes Father - other (hypotension [Other]) Mother - Heart Mother - Alzheimer's Disease Mother - other (multiple myeloma [Other]) Father - Breast Cancer Maternal Aunt strong breast cancer on maternal side - other (heart disease [Other]) Sister - Diabetes Brother x 2 - Colon Cancer Brother Social History Marital status: Spouse name: Ishaan Garcia Years of education: 18 Number of children: 4 Occupational History 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 EYES: No diplopia or blurry vision. CARDIOVASCULAR: No chest pain, dyspnea, palpitations, orthopnea, PND, ankle edema. PULM: No dyspnea, unexplained cough. GI: No dysphagia/odynophagia, problematic reflux, constipation, diarrhea, changes in stool habits, hematochezia, melena. : No new urinary complaints, including dysuria, gross hematuria or pyuria. NEURO: No new balance problems, peripheral weakness/paresthesias or numbness of concern. MUSC-SKEL: Pain of b/l feet. PSY: No concerns regarding depression, anxiety or panic. INTEGUMENTARY: No new skin changes (rash, new or changing mole, new growth) Physical Exam: Constitutional: Pt is a well developed 62 year old female who is alert, oriented and cooperative Eyes: Following during examination. No redness or drainage. Respiratory: RR normal and nonlabored. Even breathing. No evidence of distress or shortness of breath. Psychology: Patient is engaged during conversation. Normal affect and mood. Does not appear depressed or anxious during encounter. Vascular: Dorsalis pedis and posterior tibial pulses palpable as b/l Capillary Fill time < 5 seconds to digits 1-5 b/l Skin temperature warm to warm proximal to distal b/l Hair growth present to digits Neurological: intact light touch/epicritic sensation Dermatological: Nails 1-5 b/l appear Normal. Webspaces clean and dry 1-4 b/l. Skin appears well hydrated and supple. good color, texture, turgor. Callosities absent.Open lesions absent. Wound: Not present. Musculoskeletal/Orthopaedic: Patient has pain to palpation of ball of b/l feet Foot type is pronated structurally AJ ROM is full with knee extended and flexed 1st MPJ is full when loaded and no pain or crepitus are noted with ROM. MTJ, STJ are full and free of pain and crepitus. +5/5 muscle strength dorsiflexion, plantarflexion, inversion, eversion b/l Radiographs: 3 views of b/l feet reviewed. There are accessory bones to plantar metatarsal heads. There is posterior heel spur b/l L>R. No acute fracture ASSESSMENT: (M76.829) Tibialis posterior tendinitis, unspecified laterality (primary encounter diagnosis) (M77.41, M77.42) Metatarsalgia of both feet PLAN: Patient was examined and informed of current findings Discussed pain in feet. She has orthotics and they seem to be in good shape minus the top cover. One option would be to resurface the insert vs 2nd option of replacing insert. Will place order for both and she can make decision based on cost. F/u prn. Eliza Magaña DPM PROGRESS Observed: 01/07/2018 Status: COMPLETED Source: [place] 8:30 AM [facility] REPOSIT[facility] HNO ID: [id number] Author: Willa (Rt) Williams Garcia Service: (none) Author Type: Assembler Erector Type: Progress Notes Filed: 01/07/2018 8:30 AM Note Text: Radiology Service Progress Note PATIENT NAME: Mary Garcia DATE OF SERVICE: January 07, 2018 TIME: 8:30 AM PATIENT IDENTITY VERIFICATION COMPLETED USING TWO (2) METHODS: Patient confirmed name verbally and Date of . PATIENT GENDER DATA: Female. status: : No status: NO. PATIENT RELEVANT IMPLANT DATA REVIEWED: Not Applicable RADIOLOGY DEPARTMENT: General X-ray: Exam(s) Completed: Lower Extremity X-Ray(s): Feet, Bilateral and Wt. Bearing: PERIPHERAL IV DATA: Not applicable SIGNED BY: RT Alida January 07, 2018 8:30 AM XR FOOT 3V AP/LAT/OBL Observed: 01/07/2018 Status: F Source: [facility] 8:28 AM [facility] REPOSITORY * * *Final Report* * * DATE OF EXAM: Jan 07 2018 8:28AM WRX [id number] - XR FOOT 3V AP/LAT/OBL DEBRA / PROCEDURE REASON: Pain, unspecified * * * * Physician Interpretation * * * * EXAMINATION: XR FOOT 3V AP/LAT/OBL DEBRA CLINICAL HISTORY: bilateral planter midfoot pain when standing. Pain, unspecified Technique: XR FOOT 3V AP/LAT/OBL DEBRA -- BILATERAL feet with 3-each views on 5-total images Comparison: None RESULT: No fracture or dislocation in bilateral feet. Joint spaces are maintained. Decreased calcaneal inclination angle measuring 7 degrees on the left and 8.5 degrees on the right. Small posterior calcaneal enthesophytes, left greater than right. No focal soft tissue swelling. IMPRESSION: Bilateral pes planus. No acute osseous findings. 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: PSCB Transcribe Date/Time: Jan 07 2018 2:08P Dictated by : PROMISE BURTON MD This examination was interpreted and the report reviewed and electronically signed by: PROMISE BURTON MD on Jan 07 2018 2:11PM EST [id number] ALLERGIES ALLERGIES DATE TYPE / CODE NAME / CODE REACTION SEVERITY SOURCE 04/16/2018 Drug No Known Unknown [facility] Allergy/416 Allergies/Z79023 [facility] 231455(SNOM 0388(RXNORM) Repository ED CT) Drug NO KNOWN [facility] Class/11022 ALLERGIES [facility] 1003(SNOMED Repository CT) ENCOUNTERS ENCOUNTERS ADMIT/DISCHARGE ACCOUNT ADMITTING ENCOUNTER LOCATION SOURCE NUMBER CLASS 04/25/2018/04/27/20 [id number] Ambulatory [address] Repository 04/17/2018 [id number] Ambulatory [facility] ing:LAB Repository 04/16/2018 [id number] Ambulatory [facility] ing:OPBI Repository 04/16/2018/04/16/20 [id number] Ambulatory BMS[facility]:[address] [place] [address] Repository 03/04/2018/03/05/20 [id number] Ambulatory [address] Repository 01/29/2018/01/31/20 [id number] Ambulatory [address] Repository 01/07/2018/01/08/20 [id number] Ambulatory [address] Repository 01/07/2018/01/08/20 [id number] Ambulatory [address] Repository 04/15/2017/04/15/20 [id number] Ambulatory BMSBuilding:[address] [place] [address] Repository PAYERS PAYERS ENCOUNTER GUARANTOR PAYER SUBSCRIBER SOURCE 04/17/2018 ISHAAN L Primary MARY A [place] [id number] Insurance:AETNAPolicy WADEDOB: [facility] Number: [id number] [id number] Repository [address]Utr: ([phone]) Date:5799-26-16[phone] () [place], [place] [address]FA: 04/17/2018 Secondary NOT GIVENUNK [place] Insurance:SELF PAY [facility] Number: Effective Repository Date:2018-04-17 04/16/2018 ISHAAN Marquez Primary MARY A [place] [id number] Insurance:AETNAPolic WADEDOB: [facility] Number: [id number], [place] [id number] Repository [address]Srn: [phone]) Date:0033-91-94[phone] () [id number], [place] [address]FU: 04/16/2018 Secondary NOT GIVENUNK [place] Insurance:SELF PAY [facility] Number: Effective Repository Date:2017-12-31 04/16/2018 ISHAAN Marquez Primary MARY Jensen [id number] Insurance:AETNAPolicy WADEDOB: [facility] Number: [id number], [place] [id number] Repository [address]Szb: [phone]) Date:4833-13-74[phone] () [id number] NORA GUEVARA [phone]: 04/16/2018 Secondary NOT GIVENUNK [place] Insurance:SELF PAY [facility] Number: Effective Repository Date:2018-04-16 04/15/2017 Ishaan Marquez Primary MARY Jensen [id number] Insurance:AETNAPolicy WADEDOB: [facility] Number: [id number] [id number] Repository [address]Dgc: Date:8392-00-08[phone]~216 [id number] NORA GUEVARA 2 (HP) [phone]: 04/15/2017 Secondary NOT GIVENUNK [place] Insurance:SELF PAY [facility] Number: Effective Repository Date:2017-04-05
== END ==
PROVIDERS: Family Provider Student in an Organized Health Care Education/Training Program; PCP Student in an Organized Health Care Education/Training Program; Visit Provider Nurse Practitioner Women's Health
DX: Z12.31 Encounter for screening mammogram for malignant neoplasm of breast (principal)
CPT/HCPCS: 77063; 77067

== ENCOUNTER → 2018-04-17 07:19 | Outpatient (CLI) | payer OTHER, SELFPAY ==
[2018-04-16 15:18] VITALS: BMI 22.6
[2018-04-17 08:25] LABS: Cholesterol 196 mg/dL (200); Glucose 105 mg/dL (74-106); High Density Lipoprotein 98 mg/dL; Thyroid Stim Hormone (TSH) 3.45 uIU/mL (0.358-3.74); Triglycerides 40 mg/dL; Very Low Density Lipoprotein 8 mg/dL (5-40)
--- OUTSIDE RECORDS SUMMARY | 2018-06-02 19:05 | XMS RPT_ITS ---
[...] Referring Unavailable King, Mohan Primary Care Unavailable [place] Attending Unavailable King, Mohan Referring Unavailable King, Mohan Primary Care Unavailable PROBLEMS PROBLEMS DATE TYPE CONDITION / CODE ATTENDING STATUS SOURCE 04/17/2018 Unknown Z00.00 - Encounter Pricilla Live Active [place] for general adult [facility] medical examination Hospital without abnormal Repository findings / Z00.00(ICD-10) 04/17/2018 Unknown R53.83 - Other Maria TPricilla terrell Active [place] fatigue / Community R53.83(ICD-10) Hospital Repository 04/16/2018 Unknown Z01.411 - Encounter Pricilla Live Active [place] for gynecological [facility] examination [facility] (general) (routine) Repository with abnormal findings / Z01.411(ICD-10) 01/29/2018 Active Metatarsalgia, GOLIAS, SERGE Active [facility] right foot / (PT) [place] M77.41(ICD-10) Repository 01/29/2018 Active Metatarsalgia, left GOLIAS, SERGE Active [facility] foot / (PT) [place] M77.42(ICD-10) Repository 03/04/2018 Active Posterior tibial GOLIAS, SERGE Active [facility] tendinitis, (PT) [place] unspecified leg / Repository M76.829(ICD-10) 01/07/2018 Active Pain, unspecified / NA Active [facility] R52(ICD-10) [place] Repository 04/15/2017 Unknown N94.9 - Unspecified [place], Molly Active [place] condition Community associated with Hospital female genital Repository organs and menstrual cycle / N94.9(ICD-10) 04/15/2017 Unknown Z12.4 - Encounter Pricilla Live Active [place] for screening for Community malignant neoplasm Hospital of cervix / Repository Z12.4(ICD-10) PROCEDURES PROCEDURES No Procedure Records FoundRESULTS RESULTS PROGRESS Observed: 04/25/2018 Status: COMPLETED Source: [place] 8:54 AM [facility] REPOSITORY HNO ID: [id number] Author: Shanthi Patel Service: (none) Author Type: [...] Laterality Date - COLONOSCOP W/ OR W/O [facility] SPEC 02/09/2010 Colonoscopy - KNEE SCOPE,DIAGNOSTIC 08/01/2008 [...] CNP CNOV Observed: 04/25/2018 Status: COMPLETED Source: [place] 8:15 AM [facility] ([id number]) 1955 F Date Time Provider Department 04/25/18 [...] 1-2 quirts in each nostril Saline suggestions; [place] or [place] or [place] [...] 1-2 quirts in each nostril Saline suggestions; [place] or [place] or [place] [...] LIPID PROFILE Collected: 04/17/2018 Status: F Source: ACMILA 7:24 AM [facility] REPOSITORY TYPE CODE TESTS RESULT OUT OF [...] Performed By: #### L500.4100, L501.0100, L501.9520 #### [facility] [address] [place], [address] GLUCOSE Collected: 04/17/2018 Status: F Source: [place] 7:24 AM [facility] REPOSITORY TYPE CODE TESTS RESULT OUT OF RANGE REFERENCE UNITS LAB L501.0100 74-106 mg/dL Normal GLU 105 Result Comment: Fasting Glucose result from 100 to 125 mg/dL suggests IMPAIRED HOMEOSTASIS per A.D.A. criteria. Please note revised GLUCOSE reference range effective 2017. Performed By: #### L500.4100, L501.0100, L501.9520 #### [facility] [address] [place], [address] THYROID STIM HORMONE Collected: 04/17/2018 Status: F Source: [place] (TSH) 7:24 AM [facility] REPOSITORY TYPE CODE TESTS RESULT OUT OF RANGE REFERENCE UNITS LAB L501.9520 0.358-3.74 uIU/mL Normal TSH 3.45 Performed By: #### L500.4100, L501.0100, L501.9520 #### [facility] [address] [place], [address] SCREENING MAMM (CAD), Observed: 04/16/2018 Status: F Source: CAM[place] BILAT 3:45 PM [facility] REPOSITORY [facility] Imaging Services [address] [place] [address] SCREENING MAMM (CAD), BILAT MR#: [id number] Acct: [id number] Name: MARY GARCIA Rep #: [id number] : 1955 F 62 From: Torres Toussaint MD PCP: Mohan Torres, Status: REG CLI Study: SCREENING MAMM (CAD), BILAT Date of Exam: 04/16/18 Exam# [id number] Ordering Dr: Pricilla Live EMBLEM CUTTER-C MAMMOGRAPHY - BILATERAL SCREENING REASON FOR EXAM: [...] delay biopsy of a clinically suspicious abnormality. [id number] Electronically Signed: Torres Toussaint MD at 8:26 EST Tel [phone], Service support , CC: SABRINA Live; Mohan Torres DO Rug Hooker: Signed DIRECTOR REVENUE OFFICE VISIT Observed: 04/16/2018 Status: F Source: ZAREPHATH REPORT 3:36 PM [facility] REPOSITORY [facility] [place] [address] [place] [address] OFFICE VISIT Date of Service: 04/16/18 MR#: [id number] Acct: [id number] Name: MARY GARCIA Rep #: [id number] : 1955 Provider: SABRINA Live Age/Sex: 62/F Location: [facility] Status: Signed Intake Vital Signs04/16/18 Height 5 ft 6.5 in 04/16/18 Weight: 142 lb 2 oz 04/16/18 Body Mass Index (BMI) 22.6 04/16/18 Blood Pressure 130/78 H Intake Visit Reasons: ANNUAL Chief Complaint: est annual Cube Machine Tender Required: No Is patient in pain?: No [...] 1 year, prn with problems Pricilla Live DEPARTMENT ASSISTANT Orders Orders: Coding Level of Care Code Off vis,est,prev 40-64yrs Diagnoses Encounter for gynecological examination with abnormal finding Z01.411 Gynecological examination findings: abnormal findings PRESENT 04/16/18 1536 <Electronically signed by Pricilla OTERO> Date Pricilla OTERO Cosigner Signature: Date (if applicable) CC: DIRECTOR REVENUE OFFICE VISIT Observed: 03/10/2018 Status: F Source: CAM[place]A REPORT 9:41 AM [facility] [address] [place] [address] OFFICE VISIT Date of Service: 04/15/17 MR#: [id number] Acct: [id number] Name: MARY GARCIA Rep #: [id number] : 1955 Provider: SABRINA Live Age/Sex: 61/F Location: [facility] Status: Signed with Addenda ADDENDUM by SABRINA [...] cancer Z12.4 Plan - Pricilla Maria T, EMBLEM CUTTER-C thin prep pap with HPV collected 03/10/18 0941 <Electronically signed by Pricilla OTERO> Date Pricilla Live cc: * Signed Intake Vital Signs04/15/17 Height 5 ft 6 in 04/15/17 Blood Pressure 130/82 Intake Visit Reasons: REVIEW ANALYST annual exam Is patient in pain?: Yes [...] alert, oriented to person, oriented to place [facility] Head: normal to inspection Neck Neck: normal [...] thin prep pap with HPV collected 04/15/17 6443 <Electronically signed by Pricilla OTERO> Date Pricilla OTERO Cosigner Signature: Date (if applicable) CC: PROGRESS Observed: 03/04/2018 Status: COMPLETED Source: [place] 6:59 PM [facility] REPOSITORY HNO ID: [id number] Author: Serge (Pt) Gareth Service: (none) Author Type: Physical Therapist Type: Progress Notes Filed: 03/04/2018 7:03 PM Note Text: [facility] TH[facility] DME ISSUE [...] of wear time per day until multimedia specialist wear is achieved. Pt was educated on [...] Custom biomechanical foot orthotics with serial number: #[id number] were issued to patient and proof of [...] Follow up as needed for brace fitting/issues. Billing:[facility]: Equipment: L3020 pair of custom foot orthotics No charge for time. Total time: 20 minutes Serge Servin PT CNTHERAPY Observed: 03/04/2018 Status: COMPLETED Source: [place] 6:15 PM [facility] REPOSITORY OT/PT/Speech Visit (PTWS) MARY GARCIA ([id number]) 1955 F Date Time Provider Department 03/04/18 6:15 PM [facility] SERV[facility] (PT) PTWS Date Time Provider Department Center 03/04/2018 6:15 PM [id number], BRENT (PT) PTWS [facility] [place] Reason for Visit: PT Discharge [752] [...] Serge Servin PT 03/04/2018 7:03 PM Signed [facility]ORTS THERAPY DME ISSUE [...] of wear time per day until multimedia specialist wear is achieved. Pt was educated on [...] Custom biomechanical foot orthotics with serial number: #[id number] were issued to patient and proof of [...] Follow up as needed for brace fitting/issues. Billing:[facility]: Equipment: L3020 pair of custom foot orthotics No charge for time. Total time: 20 minutes Serge Servin PT Letter Text [address] [place] [address] PROOF OF ORDER AND PRESCRIPTION RECEIPT March 04, 2018 Quantity: 1 Pair Mary Garcia Item(s): Custom Foot Orthotics- [id number] I have received this date: March 04, [...] the device. I also understand that the [facility] will not be responsible for any modifications to this device not ordered by the prescribing billing customer service representative(s) of the [facility]. I understand that should I have any additional questions or concerns to call the telephone number listed above for assistance Signature of Patient/Recipient or Authorized Software Engineering Associate Manager Date Signature of CCF Software Engineering Associate Manager Date AdminaStar Federal Guidelines: [email or web address] 08/05/05 A copy of this letter has been given to the above mentioned patient. PROGRESS Observed: 01/29/2018 Status: COMPLETED Source: [place] 11:55 AM [facility] REPOSITORY O ID: [id number] Author: Serge (Pt) Gareth Service: (none) Author [...] evaluation and 1 visit for fitting and pickling solution maker) Planned Treatment Interventions: Orthosis / DME;Patient/Family/Caregiver Education PLAN FOR NEXT VISIT: fitting and pickling solution maker of custom foot orthotics Patient demonstrates good [...] symptoms related to wearing the orthosis Billing: [facility]: Evaluation - Moderate Complexity (73175) Orthotics Management and Training (30737): 1:1 time: 25 minutes (2 units: 23-37 mins) Total time: 55 minutes Serge Servin PT CNTHERAPY Observed: 01/29/2018 Status: COMPLETED Source: [place] 11:30 AM [facility] REPOSITORY OT/PT/Speech Visit (PTWS) MARY GARCIA ([id number]) 1955 F Date Time Provider Department 01/29/18 11:30 AM [facility] SERVINPT) PTWS Date Time Provider Department Center 01/29/2018 11:30 AM [id number]-KZEQRESERGE SERVINPT) PTRONDA [facility] [place] Reason for Visit: PT Eval [747] [...] evaluation and 1 visit for fitting and pickling solution maker) Planned Treatment Interventions: Orthosis / DME;Patient/Family/Caregiver Education PLAN FOR NEXT VISIT: fitting and pickling solution maker of custom foot orthotics Patient demonstrates good [...] symptoms related to wearing the orthosis Billing: [facility]: Evaluation - Moderate Complexity (33408) Orthotics Management and Training (64651): 1:1 time: 25 minutes (2 units: 23-37 mins) Total time: 55 minutes Serge Servin PT DEV Observed: 01/07/2018 Status: COMPLETED Source: [place] 8:40 AM [facility] REPOSITORY Office Visit (PODIWS) JOSEMARY BUTTS ([id number]) 1955 F Date Time Provider Department 01/07/18 8:40 AM ELIZA MAGAÑA During your visit today, we recorded the following information about you: Eliza Magaña DPM 01/07/2018 9:05 AM Signed ? 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 No acute osseous findings. Rug Hooker: PSCB Transcribe Date/Time: Jan 07 2018 2:08P Dictated by : PROMISE BURTON MD This examination was interpreted and the report reviewed and electronically signed by: PROMISE BURTON MD on Jan 07 2018 2:11PM EST [id number] ALLERGIES ALLERGIES DATE TYPE / CODE NAME / CODE REACTION SEVERITY SOURCE 04/16/2018 Drug No Known Unknown [facility] Allergy/416 Allergies/E32030 Hospital 660472(SNOM 0388(RXNORM) Repository ED CT) Drug NO KNOWN [facility] Class/87046 ALLERGIES [facility] 1003(SNOMED Repository CT) ENCOUNTERS ENCOUNTERS ADMIT/DISCHARGE ACCOUNT ADMITTING ENCOUNTER LOCATION SOURCE NUMBER CLASS 04/25/2018/04/27/20 [id number] Ambulatory [address] Repository 04/17/2018 [id number] Ambulatory [facility] ing:LAB Repository 04/16/2018 [id number] Ambulatory [facility] ing:OPBI Repository 04/16/2018/04/16/20 [id number] Ambulatory BMSBuilding:B [place] [facility] Repository 03/04/2018/03/05/20 [id number] Ambulatory [address] Repository 01/29/2018/01/31/20 [id number] Ambulatory [address] Repository 01/07/2018/01/08/20 [id number] Ambulatory [address] Repository 01/07/2018/01/08/20 [id number] Ambulatory [address] Repository 04/15/2017/04/15/20 [id number] Ambulatory BMSBuilding:B [place] [facility] Repository PAYERS PAYERS ENCOUNTER GUARANTOR PAYER SUBSCRIBER SOURCE 04/17/2018 ISHAAN L Primary MARY A [place] [id number] Insurance:AETNAPolicy WADEDOB: [facility] Number: [id number] [id number] Repository [address]Nht: ([phone]) Date:5600-21-56[phone] () [id number] [address]PO: 04/17/2018 Secondary NOT GIVENUNK [place] Insurance:SELF PAY [facility] Number: Effective Repository Date:2018-04-17 04/16/2018 ISHAAN Marquez Primary MARY A [place] [id number] Insurance:AETNAPolic WADEDOB: [facility] Number: [id number], [place] [id number] Repository [address]Myq: [phone]) Date:2826-99-41VX [phone] () [id number] [address]GO: 04/16/2018 Secondary NOT GIVENUNK [place] Insurance:SELF PAY [facility]: Effective Repository Date:2017-12-31 04/16/2018 ISHAAN Marquez Primary MARY Jensen [id number] Insurance:AETNAPolicy WADEDOB: [facility] Number: [id number], [place] [id number] Repository [address]Agz: ([phone]) Date:1331-02-96XG [phone] () [id number] NORA GUEVARA [address]OG: 04/16/2018 Secondary NOT GIVENUNK [place] Insurance:SELF PAY [facility] Number: Effective Repository Date:2018-04-16 04/15/2017 Ishaan Marquez Primary MARY Jensen [id number] Insurance:AETNAPolicy WADEDOB: [facility] Number: [id number], [place] [id number] Repository [address]Smc: Date:5182-24-56KQ [phone]~216 [id number] NORA GUEVARA 2 (HP) [address]KB: 04/15/2017 Secondary NOT GIVENUNK [place] Insurance:SELF PAY [facility] Number: Effective Repository Date:2017-04-05
== END ==
PROVIDERS: Family Provider Student in an Organized Health Care Education/Training Program; PCP Student in an Organized Health Care Education/Training Program; Referring Provider Nurse Practitioner Women's Health; Visit Provider Nurse Practitioner Women's Health
DX: Z00.00 Encounter for general adult medical examination without abnormal findings (principal); R53.83 Other fatigue
CPT/HCPCS: 36415; 80061; 82947; 84443

== ENCOUNTER → 2019-04-20 09:04 | Outpatient (CLI) | payer OTHER, SELFPAY ==
[2018-04-16 15:18] VITALS: BMI 22.6
--- NOTE | 2019-04-20 09:26 | BI_ITS ---
MAMMOGRAPHY - BILATERAL SCREENING REASON FOR EXAM: Female, 63 years old. Routine annual screening examination. PERTINENT HISTORY: Aunts with breast cancer. TECHNIQUE: Digital bilateral breast fidel (3D mammographic acquisition) in the CC and MLO projections. 2-D mediolateral oblique (MLO) and craniocaudad (CC) views of both breasts were obtained. CAD: Full Field Digital Mammography with Computer Added Detection was performed. COMPARISON: Comparison is made with prior study dated April 16, 2018 and April 11, 2017. FINDINGS: Breast Composition: The breasts are heterogeneously dense, which may obscure small masses. There are no dominant masses or suspicious calcifications. No other significant abnormalities are identified. There has been no significant change since the prior study. BI/SCREEN MAMM (CAD) W/FIDEL BILAT IMPRESSION: Stable bilateral screening mammogram. Yearly follow-up mammogram recommended. (A) ASSESSMENT CATEGORY: BIRADS Category 1: Negative. A letter regarding these results will be sent to the patient by the facility within 30 days. Approximately 10% of breast cancers are not detected by mammography. A normal mammogram should not delay biopsy of a clinically suspicious abnormality. [id number] Electronically Signed: Torres Toussaint, at 10:33 EST , Service support ,
== END ==
PROVIDERS: Family Provider Student in an Organized Health Care Education/Training Program; PCP Student in an Organized Health Care Education/Training Program; Referring Provider Nurse Practitioner Women's Health; Visit Provider Nurse Practitioner Women's Health
DX: Z12.31 Encounter for screening mammogram for malignant neoplasm of breast (principal)
CPT/HCPCS: 77063; 77067

== ENCOUNTER → 2020-04-24 12:14 | Outpatient (CLI) | payer OTHER, SELFPAY ==
[2019-04-20 12:44] VITALS: BMI 22.6
--- NOTE | 2020-04-24 12:16 | BI_ITS ---
MAMMOGRAPHY - BILATERAL SCREENING REASON FOR EXAM: Female, 64 years old. Routine annual screening examination. PERTINENT HISTORY: Aunts with breast cancer. TECHNIQUE: Digital bilateral breast fidel (3D mammographic acquisition) in the CC and MLO projections. 2-D mediolateral oblique (MLO) and craniocaudad (CC) views of both breasts were obtained. CAD: Full Field Digital Mammography with Computer Added Detection was performed. COMPARISON: Comparison is made with prior study dated 04/20/2019 and 04/16/2018. FINDINGS: Breast Composition: The breasts are heterogeneously dense, which may obscure small masses. There are no dominant masses or suspicious calcifications. No other significant abnormalities are identified. There has been no significant change since the prior study. BI/SCREEN MAMM (CAD) W/FIDEL BILAT IMPRESSION: Stable bilateral screening mammogram. Yearly follow-up mammogram recommended. (A) ASSESSMENT CATEGORY: BIRADS Category 1: Negative. A letter regarding these results will be sent to the patient by the facility within 30 days. Approximately 10% of breast cancers are not detected by mammography. A normal mammogram should not delay biopsy of a clinically suspicious abnormality. [id number] Electronically Signed: Torres Toussaint, at 13:29 EST , Service support ,
[2020-05-01 09:50] LABS: HPV APTIMA, High Risk Negative (Negative)
== END ==
PROVIDERS: Family Provider Student in an Organized Health Care Education/Training Program; PCP Student in an Organized Health Care Education/Training Program; Referring Provider Nurse Practitioner Women's Health; Visit Provider Nurse Practitioner Women's Health
DX: Z12.31 Encounter for screening mammogram for malignant neoplasm of breast (principal); Z12.4 Encounter for screening for malignant neoplasm of cervix
CPT/HCPCS: 77063; 77067; 87624; 88175; G0145

== ENCOUNTER 2021-05-08 07:53 | Outpatient (CLI) | payer BC, SELFPAY ==
[2020-04-24 12:54] VITALS: BMI 21.8
--- NOTE | 2021-05-08 07:55 | BI_ITS ---
MAMMOGRAPHY - BILATERAL SCREENING REASON FOR EXAM: Female, 65 years old. Routine annual screening examination. PERTINENT HISTORY: Aunts with breast cancer. TECHNIQUE: Digital bilateral breast fidel (3D mammographic acquisition) in the CC and MLO projections. 2-D mediolateral oblique (MLO) and craniocaudad (CC) views of both breasts were obtained. CAD: Full Field Digital Mammography with Computer Added Detection was performed. COMPARISON: Comparison is made with prior study dated 04/24/2020 and 04/20/2019. FINDINGS: Breast Composition: The breasts are heterogeneously dense, which may obscure small masses. There are no dominant masses or suspicious calcifications. No other significant abnormalities are identified. There has been no significant change since the prior study. BI/SCRN MAMM (CAD)W/FIDEL BILAT IMPRESSION: Stable bilateral screening mammogram. Yearly follow-up mammogram recommended. (A) ASSESSMENT CATEGORY: BIRADS Category 1: Negative. A letter regarding these results will be sent to the patient by the facility within 30 days. Approximately 10% of breast cancers are not detected by mammography. A normal mammogram should not delay biopsy of a clinically suspicious abnormality. [id number] Electronically Signed: Torres Toussaint MD at 8:48 EST , Service support ,
== END 2021-05-08 23:59 | disposition short-term general hospital (02) ==
LOC: OPBI 07:53
PROVIDERS: PCP Student in an Organized Health Care Education/Training Program; Referring Provider Nurse Practitioner Women's Health; Visit Provider Nurse Practitioner Women's Health
DX: Z12.31 Encounter for screening mammogram for malignant neoplasm of breast (principal)
CPT/HCPCS: 77063; 77067

== ENCOUNTER → 2022-05-09 | Outpatient (CLI) | payer BC, SELFPAY ==
--- NOTE | 2022-05-09 09:14 | BI_ITS ---
MAMMOGRAPHY - BILATERAL SCREENING REASON FOR EXAM: Female, 66 years old. Routine annual screening examination. PERTINENT HISTORY: Aunts with breast cancer. TECHNIQUE: Digital bilateral breast fidel (3D mammographic acquisition) in the CC and MLO projections. 2-D mediolateral oblique (MLO) and craniocaudad (CC) views of both breasts were obtained. CAD: Full Field Digital Mammography with Computer Added Detection was performed. COMPARISON: Comparison is made with prior examination dated 05/08/2021 and 04/24/2020. FINDINGS: Breast Composition: The breasts are heterogeneously dense, which may obscure small masses. There are no dominant masses or suspicious calcifications. No other significant abnormalities are identified. There has been no significant change since the prior study. BI/SCRN MAMM (CAD)W/FIDEL BILAT IMPRESSION: Stable bilateral screening mammogram. Yearly follow-up mammogram recommended. (A) ASSESSMENT CATEGORY: BIRADS Category 1: Negative. A letter regarding these results will be sent to the patient by the facility within 30 days. Approximately 10% of breast cancers are not detected by mammography. A normal mammogram should not delay biopsy of a clinically suspicious abnormality. [id number] Electronically Signed: Torres Toussaint MD at 10:17 EST ,
== END | disposition home or self-care (01) ==
PROVIDERS: PCP Student in an Organized Health Care Education/Training Program; Visit Provider Nurse Practitioner Women's Health
DX: Z12.31 Encounter for screening mammogram for malignant neoplasm of breast (principal); Z80.3 Family history of malignant neoplasm of breast
CPT/HCPCS: 77063; 77067

== ENCOUNTER → 2022-12-13 | Outpatient (CLI) | payer MEDICARE, OTHER, SELFPAY ==
--- NOTE | 2022-12-13 09:37 | EKG12_ITS ---
Test Reason : PRE OP Blood Pressure : / mmHG Vent. Rate : 061 BPM Atrial Rate : 061 BPM P-R Int : 146 ms QRS Dur : 088 ms QT Int : 408 ms P-R-T Axes : 043 031 046 degrees QTc Int : 410 ms Normal sinus rhythm Possible Left atrial enlargement Borderline ECG Confirmed by LOS MORTON, MERNA ([id number]), tape editor NITESH HERNANDEZ ([id number]) on 12/16/2022 8:33:05 AM Referred By: Jake Basurto Confirmed By:THERESA MADISON MD
[2022-12-13 09:46] LABS: Absolute Lymphocyte Count 1.37 X10^3/uL (0.83-4.51); Absolute Neutrophil Count 2.1 X10^3/uL (2.0-7.7); Basophil# 0.04 X10^3/uL; Eosinophil# 0.16 X10^3/uL; Eosinophils% 3.9 % (0-5); Hematocrit 42.5 % (37-47); Hemoglobin 13.7 g/dL (12.0-15.0); Lymphocyte # 1.37 X10^3/ul (0.83-4.51); Mean Corp Hgb Conc 32.2 g/dL (32-36); Mean Corpuscular Hgb 29.7 pg (27.0-32.0); Mean Platelet Vol. 10.1 fl (6.2-12.0); Monocyte# 0.44 X10^3/uL; Monocyte% 10.6 % (0-10); NRBC Flagged by Analyzer 0 % (0-5); Neutrophil # 2.13 X10^3/uL (2.7-7.7); Neutrophil % 51.3 % (47-70); Platelet Count 202 K/mm3 (150-450); RBC Distribution Width SD 43.6 fl (35.1-43.9); Red Blood Count 4.62 M/mm3 (4.2-5.4); White Blood Count 4.2 K/mm3 (4.4-11.0)
[2022-12-13 10:27] LABS: Anion Gap 3 (5-15); BUN 20 mg/dL (7-18); BUN/Creat Ratio 28.3 RATIO (10-20); Calcium,Total 9.2 mg/dL (8.5-10.1); Chloride 106 mmol/L (98-107); Creatinine, Serum 0.71 mg/dL (0.55-1.02); EST Glomerular Filtration Rate 88 mL/min (>60); Est Glom Filt Rate - Afr Amer 107 mL/min (>60); Glucose 99 mg/dL (74-106); Potassium 4.2 mmol/L (3.5-5.1); Sodium Level 137 mmol/L (136-145)
== END | disposition home or self-care (01) ==
PROVIDERS: PCP Student in an Organized Health Care Education/Training Program; Referring Provider Student in an Organized Health Care Education/Training Program; Visit Provider Student in an Organized Health Care Education/Training Program
DX: Z01.810 Encounter for preprocedural cardiovascular examination (principal); Z01.818 Encounter for other preprocedural examination
CPT/HCPCS: 36415; 80048; 85025; 93005

== ENCOUNTER → 2023-05-12 | Outpatient (CLI) | payer MEDICARE, OTHER, SELFPAY ==
--- NOTE | 2023-05-12 08:29 | BI_ITS ---
MAMMOGRAPHY - BILATERAL SCREENING REASON FOR EXAM: Female, 67 years old. Routine annual screening examination. PERTINENT HISTORY: Aunts with breast cancer. TECHNIQUE: Digital bilateral breast fidel (3D mammographic acquisition) in the CC and MLO projections. 2-D mediolateral oblique (MLO) and craniocaudad (CC) views of both breasts were obtained. CAD: Full Field Digital Mammography with Computer Added Detection was performed. COMPARISON: Comparison is made with prior study dated May 09, 2022 and May 08, 2021. FINDINGS: Breast Composition: The breasts are heterogeneously dense, which may obscure small masses. There are no dominant masses or suspicious calcifications. No other significant abnormalities are identified. There has been no significant change since the prior study. BI/SCRN MAMM (CAD)W/FIDEL BILAT IMPRESSION: Stable bilateral screening mammogram. Yearly follow-up mammogram recommended. (A) ASSESSMENT CATEGORY: BIRADS Category 1: Negative. A letter regarding these results will be sent to the patient by the facility within 30 days. Approximately 10% of breast cancers are not detected by mammography. A normal mammogram should not delay biopsy of a clinically suspicious abnormality. [id number] Electronically Signed: Torres Toussaint MD at 15:45 EST ,
--- OUTSIDE RECORDS SUMMARY | 2023-05-12 08:53 | XMS RPT_ITS | CCD ---
Author Name Unknown Address [facility] Active Media [facility] [address] [place] [address] Organization [facility] Care Team Providers Care Director Of Scout Work Name Role Phone Maria T NETWORK DEVELOPMENT COORDINATOR, Pricilla Castañeda Unavailable [phone] Mohan Cherry DO Primary Care Provider Mohan Cherry DO Primary Care Provider MOHAN CHERRY Primary Care Unavailable DONNA AZAR Attending Unavailable MOHAN CHERRY Primary Care Unavailable DIRK FOSTER Attending Unavailable MOHAN CHERRY Referring Unavailable MOHAN CHERRY Primary Care Unavailable DONNA AZAR Attending Unavailable MOHAN CHERRY Referring Unavailable MOHAN CHERRY Primary Care Unavailable MOHAN CHERRY Referring Unavailable MOHAN CHERRY Primary Care Unavailable MOHAN CHERRY Attending Unavailable MOHAN CHERRY Primary Care Unavailable Medications Current Medications Medication Drug Class(es) Dates Sig (Normalized) Sig (Original) amoxicillin 875 mg / clavulanate 125 mg oral tablet (1 source) Penicillin-class Antibacterial Start: 10-21-2022 End: 10-31-2022 take 1 tablet by mouth twice daily amoxicillin-clav ulanic acid (AUGMENTIN) 875-125 mg per tablet Indications: Frontal sinus pain Take 1 tablet by mouth twice daily for 10 days. 20 tablet 0 10/21/2022 10/31/2022 Active Completed/Discontinued Medications Medication Drug Class(es) Dates Sig (Normalized) Sig (Original) azithromycin 250 mg oral tablet (1 source) Macrolide Antimicrobial Start: 05-01-2022 End: 05-06-2022 azithromycin (ZITHROMAX Z-MED) 250 mg tablet Indications: Productive cough Take 2 tablets day one, then, 1 tablet daily until gone. 6 tablet 0 05/01/2022 05/06/2022 Problems Active Problems Problem Classification Problem Date Documented Da te Episodic/Chronic Diabetes mellitus without complication (14 sources) Impaired fasting glycemia; Translations: [Impaired fasting glucose] Onset: 01-24-2020 01-24-2020 Episodic Disorders of lipid metabolism (20 sources) Dyslipidemia; Translations: [Hyperlipidemia, unspecified] Onset: 01-15-2012 Chronic Genitourinary symptoms and ill-defined conditions (1 source) Microscopic hematuria; Translations: [Other microscopic hematuria] Episodic Menopausal disorders (10 sources) Atrophic vaginitis; Translations: [Postmenopausal atrophic vaginitis] Onset: 12-31-2007 12-31-2007 Chronic Nutritional deficiencies (4 sources) Vitamin D deficiency; Translations: [Vitamin D deficiency, unspecified] Onset: 02-28-2023 02-28-2023 Chronic Other bone disease and musculoskeletal deformities (1 source) Disorder of bone; Translations: [Other specified disorders of bone density and structure, multiple sites] 02-28-2023 Episodic Other bone disease and musculoskeletal deformities (1 source) Other specified disorders of bone density and structure, multiple sites; Translations: [Other specified disorders of bone density and structure, multiple sites] Onset: 03-25-2023 Episodic Other lower respiratory disease (1 source) Productive cough ; Translations: [Productive cough] Episodic Other screening for suspected conditions (not mental disorders or infectious disease) (1 source) Encounter for screening for osteoporosis; Translations: [Screening for osteoporosis] Onset: 03-25-2023 Episodic Other upper respiratory disease (1 source) Frontal sinus pain; Translations: [Other specified disorders of nose and nasal sinuses] Episodic Prolapse of female genital organs (10 sources) Disorder of rectum; Translations: [Rectocele] Onset: 12-31-2007 12-31-2007 Chronic Unclassified (2 sources) Screening mammography ; Translations: [Encounter for screening mammogram for malignant neoplasm of breast] Onset: 03-10-2017 03-11-2017 Past or Other Problems Problem Classification Problem Date Documented Da te Episodic/Chronic Immunizations and screening for infectious disease (3 sources) Patient encounter status; Translations: [Encounter for immunization] Onset: 12-16-2022 12-16-2022 Episodic Other bone disease and musculoskeletal deformities (12 sources) Senile osteopenia; Translations: [Other specified disorders of bone density and structure, unspecified site] Onset: 02-26-2022 Episodic Other bone disease and musculoskeletal deformities (10 sources) Osteopenia; Translations: [Other specified disorders of bone density and structure, multiple sites] Onset: 02-09-2013 03-21-2021 Episodic Other bone disease and musculoskeletal deformities (1 source) Other specified disorders of bone density and structure, unspecified site; Translations: [Osteopenia, senile] Onset: 02-26-2022 Episodic Other connective tissue disease (10 sources) Bilateral metatarsalgia; Translations: [Metatarsalgia, right foot] Onset: 01-29-2018 01-29-2018 Episodic Other connective tissue disease (10 sources) Dysfunction of posterior tibial tendon; Translations: [Posterior tibial tendinitis, unspecified leg] Onset: 01-29-2018 01-29-2018 Episodic Other upper respiratory disease (1 source) Other specified disorders of nose and nasal sinuses; Translations: [Frontal sinus pain] Onset: 10-21-2022 Episodic Results Test Name Value Interpretation Reference Range Facil ity Vital Signs Date Time Vital Sign Value Performing Clinician Faci lity 02-28-2023 08:41-0400 Body height 169 cm Mohan Cherry DO Work Phone: [facility] 02-28-2023 08:41-0400 Body temperature 96.01 [degF] Mohan Cherry DO Work Phone: [facility] 02-28-2023 08:41-0400 Body weight 63.5 kg Mohan Cherry DO Work Phone: [facility] 02-28-2023 08:41-0400 Diastolic blood pressure 80 mm[Hg] Mohan Cherry DO Work Phone: [facility] 02-28-2023 08:41-0400 Heart rate 64 /min Mohan Cherry DO Work Phone: [facility] 02-28-2023 08:41-0400 Respiratory rate 12 /min Mohan Cherry DO Work Phone: [facility] 02-28-2023 08:41-0400 Systolic blood pressure 120 mm[Hg] Mohan Cherry DO Work Phone: [facility] 12-16-2022 08:24-0400 Body height 169 cm Donna Azar CURRICULUM COACH.REFINERY OPERATOR HELPER Work Phone: [facility] 12-16-2022 08:24-0400 Body weight 64.23 kg Donna Azar CURRICULUM COACH.REFINERY OPERATOR HELPER Work Phone: [facility] 12-16-2022 08:24-0400 Diastolic blood pressure 64 mm[Hg] Donna Azar CURRICULUM COACH.REFINERY OPERATOR HELPER Work Phone: [facility] 12-16-2022 08:24-0400 Heart rate 64 /min Donna Azar CURRICULUM COACH.REFINERY OPERATOR HELPER Work Phone: [facility] 12-16-2022 08:24-0400 Respiratory rate 14 /min Donna Azar CURRICULUM COACH.REFINERY OPERATOR HELPER Work Phone: [facility] 12-16-2022 08:24-0400 Systolic blood pressure 124 mm[Hg] Donna Azar CURRICULUM COACH.REFINERY OPERATOR HELPER Work Phone: [facility] 10-21-2022 10:49-0400 Body temperature 98.6 [degF] Dirk Podlogar CURRICULUM COACH.REFINERY OPERATOR HELPER Work Phone: [facility] 10-21-2022 10:49-0400 Body weight 64.23 kg Dirk Podlogar CURRICULUM COACH.REFINERY OPERATOR HELPER Work Phone: [facility] 10-21-2022 10:49-0400 Diastolic blood pressure 88 mm[Hg] Dirk Podlogar CURRICULUM COACH.REFINERY OPERATOR HELPER Work Phone: [facility] 10-21-2022 10:49-0400 Heart rate 76 /min Dirk Podlogar CURRICULUM COACH.REFINERY OPERATOR HELPER Work Phone: [facility] 10-21-2022 10:49-0400 Respiratory rate 16 /min Dirk Podlogar CURRICULUM COACH.REFINERY OPERATOR HELPER Work Phone: [facility] 10-21-2022 10:49-0400 SaO2% (BldA) [Mass fraction] 97 % Dirk Podlogar CURRICULUM COACH.REFINERY OPERATOR HELPER Work Phone: [facility] 10-21-2022 10:49-0400 Systolic blood pressure 130 mm[Hg] Dirk Foster CURRICULUM COACH.REFINERY OPERATOR HELPER Work Phone: [facility] 05-01-2022 13:07-0500 Body temperature 99.61 [degF] Donna Zurawick CURRICULUM COACH.REFINERY OPERATOR HELPER Work Phone: [facility] 05-01-2022 13:07-0500 Body weight 62.78 kg Donna Zurawick CURRICULUM COACH.REFINERY OPERATOR HELPER Work Phone: [facility] 05-01-2022 13:07-0500 Diastolic blood pressure 72 mm[Hg] Donna Zurawick CURRICULUM COACH.REFINERY OPERATOR HELPER Work Phone: [facility] 05-01-2022 13:07-0500 Heart rate 78 /min Donna Zurawioriana CURRICULUM COACH.REFINERY OPERATOR HELPER Work Phone: [facility] 05-01-2022 13:07-0500 SaO2% (BldA) [Mass fraction] 98 % Donna Zurawick CURRICULUM COACH.REFINERY OPERATOR HELPER Work Phone: [facility] 05-01-2022 13:07-0500 Systolic blood pressure 130 mm[Hg] Donna Zurawick CURRICULUM COACH.REFINERY OPERATOR HELPER Work Phone: [facility] 02-26-2022 13:06-0400 Body height 169 cm Mohan Cherry DO Work Phone: [facility] 02-26-2022 13:06-0400 Body temperature 97 [degF] Mohan Cherry DO Work Phone: [facility] 02-26-2022 13:06-0400 Body weight 62.6 kg Mohan Cherry DO Work Phone: [facility] 02-26-2022 13:06-0400 Diastolic blood pressure 60 mm[Hg] Mohan Cherry DO Work Phone: [facility] 02-26-2022 13:06-0400 Heart rate 76 /min Mohan Cherry DO Work Phone: [facility] 02-26-2022 13:06-0400 Respiratory rate 16 /min Mohan Perezrison DO Work Phone: [facility] 02-26-2022 13:06-0400 Systolic blood pressure 100 mm[Hg] Mohan Perezrison DO Work Phone: [facility] Encounters Encounter Date Encounter Type Care Provider Facility Start: 04-23-2023 Telephone encounter Mohan correa DO Work Phone: [facility] Start: 03-25-2023 End: 03-25-2023 ambulatory MOHAN PEREZRISON Facility:[facility] Start: 02-28-2023 End: 03-01-2023 ambulatory MOHAN L CHERRY Facility:[facility] Start: 02-28-2023 End: 02-28-2023 Patient encounter procedure Mohan Cherry DO Work Phone: [facility] Procedures Date Procedure Procedure Detail Performing Clinician Start: 02-28-2023 Lipid 1996 panel - S ted or Plasma Mohan Perezrison DO Work Phone: Start: 05-09-2022 Mammography Leny abel Research Coordinator Start: 04-24-2020 Mammography Mohan Perez rison DO Work Phone: Start: 02-21-2020 Colonoscopy Mohan Chris rison DO Work Phone: Start: 03-10-2017 End: 04-22-2017 Mammogram, screening Pricilla Live NP Work Phone: Plan of Treatment Date Care Activity Detail Author Start: 02-20-2030 Colonoscopy COLONOSCOPY [facility] Start: 02-20-2030 COLORECTAL CANCER SCREENING COLORECTAL CANCER SCREENING [facility] Start: 02-20-2030 Screening for malign ant neoplasm of colon [facility] Start: 02-29-2028 Lipid 1996 panel - S ted or Plasma Lipid Screening [facility] Start: 02-29-2028 Lipid panel Lipid Screening [facility] Start: 02-27-2027 LIPID SCREEN LIPID SCREEN [facility] Start: 02-28-2026 Diabetes Screening Diabetes Screenin g [facility] Start: 01-24-2026 LIPID SCREEN LIPID SCREEN [facility] Start: 02-27-2025 DIABETES SCREEN DIABETES SCREEN [facility] Start: 06-14-2024 Urine microalbumin profile [facility] Start: 01-25-2024 DIABETES SCREEN DIABETES SCREEN [facility] Start: 12-17-2023 COVID-19 VACCINE (5 - Moderna series) COVID-19 VACCINE (5 - Moderna series) [facility] Immunizations Immunization Date Immunization Notes Care Provider Getachew garza 02-22-2023 influenza (HD-IIV4) vaccine, age 65+ yr, high dose, quadrivalent, PF (FLUZONE HIGH-DOSE) Mohan Cherry DO Work Phone: [facility] 02-18-2023 COVID-19 vaccine, ag e 12+ yr, season (MODERNA) Mohan Cherry DO Work Phone: [facility] 12-16-2022 pneumococcal (PCV20) vaccine, 20 valent (PREVNAR 20) Dnona Azar CURRICULUM COACH.REFINERY OPERATOR HELPER Work Phone: [facility] 12-16-2022 pneumococcal Conjuga te, unspecified formulation Donna Azar CURRICULUM COACH.REFINERY OPERATOR HELPER Work Phone: [facility] Work Phone: 02-05-2022 COVID-19 booster vaccine, age 12+ yr, bivalent (PFIZER-BIONTECH) Mohan Cehrry DO Work Phone: [facility] 02-05-2022 influenza, seasonal, injectable Mohan Cherry DO Work Phone: [facility] 02-23-2021 COVID-19 original vaccine, age 12+ yr, monovalent ([employer]-BIONTECH - PURPLE TOP) Mohan Cherry DO Work Phone: [facility] Work Phone: 02-20-2021 influenza, seasonal, injectable Mohan Cherry DO Work Phone: [facility] Work Phone: 01-24-2020 influenza, injectabl e, quadrivalent, contains preservative Mohan Cherry DO Work Phone: [facility] Work Phone: 02-08-2019 influenza, seasonal, injectable Mohan Cherry DO Work Phone: [facility] 02-25-2018 zoster vaccine recombinant Mohan Cherry DO Work Phone: [facility] Work Phone: 12-22-2017 zoster vaccine recombinant Mohan Cherry DO Work Phone: [facility] Work Phone: 01-13-2016 influenza, injectabl e, quadrivalent, contains preservative Mohan Cherry DO Work Phone: [facility] Work Phone: 06-14-2014 tetanus toxoid, redu julee diphtheria toxoid, and acellular pertussis vaccine, adsorbed Mohan Cherry DO Work Phone: [facility] Work Phone: Payers Date Payer Category Payer Medicare MEDICARE MEDICAR E A AND B [id number] 2022-Present [phone] [place] [address] Medicare [id number] 2022 Medicare [id number] 2022 Private Health Insurance [facility] AARP SUPPLEMENT [id number] 2022-Present [phone] [address] [place] [address] Indemnity [id number] 2022 Unknown [id number] 2021 Unknown RAY MEIER O MARY [id number] 2021-Present [phone] [address] [place] [address] HMO [id number] 2021 Unknown [id number] Social History Date Type Detail Facility Start: 01-15-2012 Tobacco smoking stat us NHIS Never smoked tobacco [facility] Start: 01-15-2012 Tobacco use and exposure Smoke less tobacco non-user [facility] Start: 02-26-2022 End: 02-28-2023 Alcohol intake Current drinker of alcohol (finding) [facility] Start: 02-19-2022 End: 05-01-2022 History SDOH Alcohol Frequency 4 [facility] Start: 02-19-2022 End: 05-01-2022 History SDOH Alcohol Std Drinks 1 [facility] Start: 02-19-2022 End: 05-01-2022 History SDOH Social Connections Phone 5 [facility] Start: 02-19-2022 End: 05-01-2022 History SDOH Social Connections Cheondoism 3 [facility] Start: 02-19-2022 History SDOH Physica l Activity DPW 7 [facility] Start: 02-19-2022 End: 05-01-2022 History SDOH Physical Activity MPS 6 [facility] Start: 02-19-2022 End: 05-01-2022 History SDOH Transport Med 2 [facility] [place] [facility] Start: 01-18-2020 Education 18 [facility] Start: 1955 Sex Assigned At Not on file [facility] Start: 02-16-2022 End: 02-26-2022 Exposure to SARS-CoV-2 (event) Not sure [facility] Work Phone: Start: 04-30-2022 End: 12-16-2022 History of Social function [place] [facility] Start: 04-30-2022 End: 12-16-2022 Social connection and isolation panel [facility] Do you belong to any clubs or organizations such as mosque groups, unions, fraternal or athletic groups, or school groups? Yes [facility] Are you now , , , , never or living with a partner? [facility] How often to you hav e a drink containing alcohol? 2-3 time sa week [facility] How many standard dr inks containing alcohol do you have on a typical day? 1 or 2 [facility] How often do you hav e 6 or more drinks on 1 occasion? Never [facility] How hard is it for y ou to pay for the very basics like food, housing, medical care, and heating Not hard at all [facility] Do you feel stress - tense, restless, nervous, or anxious, or unable to sleep at night because your mind is troubled all the time - these days [OSQ] Not at all [facility] (I/We) worried wheth er (my/our) food would run out before (I/we) got money to buy more. Never true [facility] In the past 12 month s, was there a time when you were not able to pay the mortgage or rent on time? No [facility] Clinical Notes 09-12-2011 to 04-23-2023 Telephone Encounter - Darcie Krause - 04/23/2023 10:56 AM ESTTelephone Encounter - Mohan Cherry DO - 04/23/2023 9:17 AM Mohan Pennington DO - 02/28/2023 11:56 AM EDTPatient Instructions Note Date & Type Note Facility 04-23-2023 Miscellaneous Notes Patient notified and verbalized understanding. Darcie Krause LPN Please inform patient that overall her bone density is stable with osteopenia, no worsening. Continue weight bearing exercise and calcium and vitamin D supplements Mohan Cherry DO documented in this encounter [facility] 03-25-2023 Note HNO ID: [id number] Author: Benedict Hendrix RT(R) Service: ? Author Type: Technologist Type: Progress Notes Filed: 03/25/2023 9:16 AM Note Text: Radiology Service Progress Note PATIENT NAME: Mary Garcia DATE OF SERVICE: March 25, 2023 TIME: 9:08 AM PATIENT IDENTITY VERIFICATION COMPLETED USING TWO (2) IDENTIFIERS: Name and Date of confirmed by patient verbally. FALL SCREENING: Has the patient had 2 falls in the last year or 1 fall with injury or currently using an Ambulatory Assistive Device (Walker, Cane, Wheelchair, Crutches, etc.)? No PATIENT GENDER DATA: Female. status: : No status: NO. PATIENT RELEVANT IMPLANT DATA REVIEWED: Not Applicable RADIOLOGY DEPARTMENT: Bone Density PERIPHERAL IV DATA: Not applicable SIGNED BY: Benedict Hendrix, RT(R) March 25, 2023 9:08 AM [facility] 02-28-2023 Note HNO ID: [id number] Author: Mohan Cherry, DO Service: ? Author Type: Physician Type: Progress Notes Filed: 02/28/2023 11:58 AM Note Text: CC: Mary Garcia is a 67 year old female who presents to the office for routine follow up HPI: Osteopenia, taking supplements as prescribed. Willing to have a repeat BMD, maintains healthy diet and regular exercise as well Hx of melanoma and BCC, continues to see Derm at [facility] at least yearly. No new symptoms. PAST MEDICAL HISTORY Diagnosis Date Arthritis knee cartilage Basal cell carcinoma History of torn meniscus of left knee 04/12/2015 surgery 04/12/2015 IRON DEFIC ANEMIA NOS 12/15/2006 Malignant melanoma of skin 03/24/2009 Back- follows w/Dr. Comer Melanoma ([facility]) 2008 Osteopenia of multiple sites 03/2021 Shoulder bursitis 11/16/2021 Squamous cell carcinoma Unspecified constipation Uterine fibroid 7 cm PAST SURGICAL HISTORY Procedure Laterality Date ARTHROSCOPY KNEE DIAGNOSTIC W/WO SYNOVIAL BX SPX 08/01/2008 Arthroscopy, knee ARTHRP KNE CONDYLEANDPLATU MEDIALANDLAT COMPARTMENTS 2017 COLONOSCOPY FLX DX W/COLLJ SPEC WHEN PFRMD 02/09/2010 Colonoscopy COLONOSCOPY FLX DX W/COLLJ SPEC WHEN PFRMD 02/21/2020 Colonoscopy repeat in 10 years-normal w/Dr. Burnette JOINT REPLACEMENT HX Right 2018 LEG VEIN LEFT 07/2012 laser ablation of veins on both legs melanoma skin 03/24/2009 malignant- back, Dr. Rodriguez removed OPEN REPAIR OF ROTATOR CUFF ACUTE 11/16/20022022 re repair PAST SURGICAL HISTORY OF 2003 BASAL CELL CARCINOMA REMOVED FROM HER BACK PAST SURGICAL HISTORY OF 2005 left shoulder surgery SKIN BIOPSY HX TONSILLECTOMY HX TONSILLECTOMY PRIMARY/SECONDARY had done as an adult Social History: Social History Tobacco Use Smoking status: Never Smokeless tobacco: Never Substance Use Topics Alcohol use: Yes Comment: occasionally Drug use: No FAMILY HISTORY Problem Relation Age of Onset Heart Mother Alzheimer's Disease Mother other (hypotension) Mother Coronary Artery Disease Father Diabetes Father other (multiple myeloma) Father Diabetes Sister other (heart disease) Sister Prostate Cancer Brother Diabetes Brother x 2 Colon Cancer Brother Breast Cancer Maternal Aunt strong breast cancer on maternal side Current Outpatient prescriptions: VITAMIN B COMPLEX-100 ORAL Take 1 capsule by mouth once daily. cetirizine (ZYRTEC) 10 mg tablet Take 1 tablet by mouth once daily. multivitamin tablet Take 1 tablet by mouth once daily. CALCIUM 500 MG TAB Take one(1) tablet twice daily. Allergies: ALLERGIES No Known Allergies ROS: See HPI PE: 02/28/23 0841 BP: 120/80 Pulse: 64 Resp: 12 Temp: (!) 35.6 ?C (96 ?F) TempSrc: Right Tympanic Weight: 63.5 kg (140 lb) Height: 169 cm (5' 6.54 ) Gen: AANDO, NAD, non-toxic appearing, Pleasant, cooperative HEENT: NT/AC, PERRLA, EOMs intact b/l, nares clear and patent b/l, pharynx without erythema, exudate or lesions. Uvula midline. EACs without erythema or debris. TMs pearly shaw with intact landmarks b/l. Neck: supple, No cervical LAD, no thyromegaly, no carotid bruits CV: RRR, normal S1 and S2, no murmurs, no gallops, no rubs, Pulses 2+ and symmetric in UE and LE b/l Lungs: normal respiratory effort, CTA b/l, no wheezing or rhonchi or rales Abd: soft, NT, ND, +BS, no hepatosplenomegaly MS: FROM all 4 extremities Neuro: CN II-XII intact b/l, strength 5/5 b/l UE and LE, DTRs 2/4 UE and LE, sensation intact. Skin: warm, dry, intact, No rashes or lesions on exposed skin. Scattered macules and angiomas No edema, normal pulses ASSESSMENT/PLAN: 1. Osteopenia, senile - ICD9: 733.90, ICD10: M85.80 (primary diagnosis) - set up for BMD AP Spine and Hip Unilateral - Reviewed the need for Calcium and Vitamin D supplements and weight bearing exercise as tolerated - TSH BLD - T4 FREE/FREE THYROX - VITAMIN D 25 HYDROXY - MAGNESIUM BLD - DXA-AXIAL SKELETON 2. Dyslipidemia - ICD9: 272.4, ICD10: E78.5 - Control undetermined, due for labs - Counseled on healthy diet and regular exercise - LIPID PANEL BASIC - COMP METABOLIC PANEL - CBC + DIFF - TSH BLD - T4 FREE/FREE THYROX 3. Vitamin D deficiency - ICD9: 268.9, ICD10: E55.9 Continue supplement - VITAMIN D 25 HYDROXY - MAGNESIUM BLD 4. Hyperglycemia - ICD9: 790.29, ICD10: R73.9 - HGB A1C - T4 FREE/FREE THYROX 5. Screening for osteoporosis - ICD9: V82.81, ICD10: Z13.820 - DXA-AXIAL SKELETON 6. Other specified disorders of bone density and structure, multiple sites - ICD9: 733.99, ICD10: M85.89 - DXA-AXIAL SKELETON Mohan Cherry DO To ER if develops chest pain, shortness of breath, or severe worsening of symptoms. Discussed risks, benefits, alternatives, and potential side effects of medications. Patient expressed understanding and agreed with the plan. Mohan Cherry DO [address] [place] [address] (more content not included)... [facility] 02-28-2023 History of Present illness Narrative CC: Mary Garcia is a 67 year old female who presents to the office for routine follow up HPI: Osteopenia, taking supplements as prescribed. Willing to have a repeat BMD, maintains healthy diet and regular exercise as well Hx of melanoma and BCC, continues to see Derm at [facility] at least yearly. No new symptoms. PAST MEDICAL HISTORY Diagnosis Date Arthritis knee cartilage Basal cell carcinoma History of torn meniscus of left knee 04/12/2015 surgery 04/12/2015 IRON DEFIC ANEMIA NOS 12/15/2006 Malignant melanoma of skin 03/24/2009 Back- follows w/Dr. Comer Melanoma ([facility]) 2008 Osteopenia of multiple sites 03/2021 Shoulder bursitis 11/16/2021 Squamous cell carcinoma Unspecified constipation Uterine fibroid 7 cm PAST SURGICAL HISTORY Procedure Laterality Date ARTHROSCOPY KNEE DIAGNOSTIC W/WO SYNOVIAL BX SPX 08/01/2008 Arthroscopy, knee ARTHRP KNE CONDYLE&PLATU MEDIAL&LAT COMPARTMENTS 2017 COLONOSCOPY FLX DX W/COLLJ SPEC WHEN PFRMD 02/09/2010 Colonoscopy COLONOSCOPY FLX DX W/COLLJ SPEC WHEN PFRMD 02/21/2020 Colonoscopy repeat in 10 years-normal w/Dr. Burnette JOINT REPLACEMENT HX Right 2018 LEG VEIN LEFT 07/2012 laser ablation of veins on both legs melanoma skin 03/24/2009 malignant- back, Dr. Rodriguez removed OPEN REPAIR OF ROTATOR CUFF ACUTE 11/16/20022022 re repair PAST SURGICAL HISTORY OF 2003 BASAL CELL CARCINOMA REMOVED FROM HER BACK PAST SURGICAL HISTORY OF 2005 left shoulder surgery SKIN BIOPSY HX TONSILLECTOMY HX TONSILLECTOMY PRIMARY/SECONDARY <AGE 14 had done as an adult Social History: Social History Tobacco Use Smoking status: Never Smokeless tobacco: Never Substance Use Topics Alcohol use: Yes Comment: occasionally Drug use: No FAMILY HISTORY Problem Relation Age of Onset Heart Mother Alzheimer's Disease Mother other (hypotension) Mother Coronary Artery Disease Father Diabetes Father other (multiple myeloma) Father Diabetes Sister other (heart disease) Sister Prostate Cancer Brother Diabetes Brother x 2 Colon Cancer Brother Breast Cancer Maternal Aunt strong breast cancer on maternal side Current Outpatient prescriptions: VITAMIN B COMPLEX-100 ORAL Take 1 capsule by mouth once daily. cetirizine (ZYRTEC) 10 mg tablet Take 1 tablet by mouth once daily. multivitamin tablet Take 1 tablet by mouth once daily. CALCIUM 500 MG TAB Take one(1) tablet twice daily. Allergies: ALLERGIES No Known Allergies ROS: See HPI PE: 02/28/23 0841 BP: 120/80 Pulse: 64 Resp: 12 Temp: (!) 35.6 C (96 F) TempSrc: Right Tympanic Weight: 63.5 kg (140 lb) Height: 169 cm (5' 6.54 ) Gen: A&O, NAD, non-toxic appearing, Pleasant, cooperative HEENT: NT/AC, PERRLA, EOMs intact b/l, nares clear and patent b/l, pharynx without erythema, exudate or lesions. Uvula midline. EACs without erythema or debris. TMs pearly shaw with intact landmarks b/l. Neck: supple, No cervical LAD, no thyromegaly, no carotid bruits CV: RRR, normal S1 and S2, no murmurs, no gallops, no rubs, Pulses 2+ and symmetric in UE and LE b/l Lungs: normal respiratory effort, CTA b/l, no wheezing or rhonchi or rales Abd: soft, NT, ND, +BS, no hepatosplenomegaly MS: FROM all 4 extremities Neuro: CN II-XII intact b/l, strength 5/5 b/l UE and LE, DTRs 2/4 UE and LE, sensation intact. Skin: warm, dry, intact, No rashes or lesions on exposed skin. Scattered macules and angiomas No edema, normal pulses ASSESSMENT/PLAN: 1. Osteopenia, senile - ICD9: 733.90, ICD10: M85.80 (primary diagnosis) - set up for BMD AP Spine and Hip Unilateral - Reviewed the need for Calcium and Vitamin D supplements and weight bearing exercise as tolerated - TSH BLD - T4 FREE/FREE THYROX - VITAMIN D 25 HYDROXY - MAGNESIUM BLD - DXA-AXIAL SKELETON 2. Dyslipidemia - ICD9: 272.4, ICD10: E78.5 - Control undetermined, due for labs - Counseled on healthy diet and regular exercise - LIPID PANEL BASIC - COMP METABOLIC PANEL - CBC + DIFF - TSH BLD - T4 FREE/FREE THYROX 3. Vitamin D deficiency - ICD9: 268.9, ICD10: E55.9 Continue supplement - VITAMIN D 25 HYDROXY - MAGNESIUM BLD 4. Hyperglycemia - ICD9: 790.29, ICD10: R73.9 - HGB A1C - T4 FREE/FREE THYROX 5. Screening for osteoporosis - ICD9: V82.81, ICD10: Z13.820 - DXA-AXIAL SKELETON 6. Other specified disorders of bone density and structure, multiple sites - ICD9: 733.99, ICD10: M85.89 - DXA-AXIAL SKELETON Mohan Cherry DO To ER if develops chest pain, shortness of breath, or severe worsening of symptoms. Discussed risks, benefits, alternatives, and potential side effects of medications. Patient expressed understanding and agreed with the plan. Mohan Cherry DO [address] [place] [address] documented in this encounter [facility] 12-16-2022 Note HNO ID: [id number] Author: Donna Azar APRN.REFINERY OPERATOR HELPER Service: ? Author Type: Nurse Practitioner Type: Progress Notes Filed: 12/16/2022 9:04 AM Note Text: Chief Complaint Patient presents with: Pre-Op Visit HPI Mary Garcia is a 67 year old female who presents here today for Above Complaints. Mary is an established patient of Dr. Cherry, and myself. Concerns today.. Pre-op clearance physical --- Scheduled on 12/24/22 for L shoulder diagnostic and operative arthroscopy with rotator cuff repair, mini open biceps tenodesis. Surgeon Dr. Basurto with [facility]. Had lab work and EKG done Friday at hospital -- reviewed with pt. Last surgery was knee replacement -- no difficulties with anesthesia besides mild nausea. No anticoagulation medications. No cardiac or pulmonary history. No concerns today. Past medical history, appointments, medications, allergies reviewed. Previous Medical History PAST MEDICAL HISTORY Diagnosis Date Arthritis knee cartilage Basal cell carcinoma History of torn meniscus of left knee 04/12/2015 surgery 04/12/2015 IRON DEFIC ANEMIA NOS 12/15/2006 Malignant melanoma of skin 03/24/2009 Back- follows w/Dr. Comer Melanoma ([facility]) 2008 Osteopenia of multiple sites 03/2021 Shoulder bursitis 11/16/2021 Squamous cell carcinoma Unspecified constipation Uterine fibroid 7 cm Previous Surgical History PAST SURGICAL HISTORY Procedure Laterality Date ARTHROSCOPY KNEE DIAGNOSTIC W/WO SYNOVIAL BX SPX 08/01/2008 Arthroscopy, knee ARTHRP KNE CONDYLEANDPLATU MEDIALANDLAT COMPARTMENTS 2016 COLONOSCOPY FLX DX W/COLLJ SPEC WHEN PFRMD 02/09/2010 Colonoscopy COLONOSCOPY FLX DX W/COLLJ SPEC WHEN PFRMD 02/21/2020 Colonoscopy repeat in 10 years-normal w/Dr. Burnette JOINT REPLACEMENT HX Right 2018 LEG VEIN LEFT 07/2012 laser ablation of veins on both legs melanoma skin 03/24/09 malignant- back, Dr. Rodriguez removed OPEN REPAIR OF ROTATOR CUFF ACUTE 2003 Rotator cuff repair RIGHT SHOULDER PAST SURGICAL HISTORY OF 2003 BASAL CELL CARCINOMA REMOVED FROM HER BACK PAST SURGICAL HISTORY OF 2005 left shoulder surgery SKIN BIOPSY HX TONSILLECTOMY HX TONSILLECTOMY PRIMARY/SECONDARY had done as an adult Family History FAMILY HISTORY Problem Relation Age of Onset Heart Mother Alzheimer's Disease Mother other (hypotension) Mother Coronary Artery Disease Father Diabetes Father other (multiple myeloma) Father Diabetes Sister other (heart disease) Sister Prostate Cancer Brother Diabetes Brother x 2 Colon Cancer Brother Breast Cancer Maternal Aunt strong breast cancer on maternal side Patient Allergies ALLERGIES No Known Allergies Current Medications Current Outpatient Medications on File Prior to Visit Medication Sig VITAMIN B COMPLEX-100 ORAL Take 1 capsule by mouth once daily. cetirizine (ZYRTEC) 10 mg tablet Take 1 tablet by mouth once daily. multivitamin tablet Take 1 tablet by mouth once daily. CALCIUM 500 MG TAB Take one(1) tablet twice daily. No current facility-administered medications on file prior to visit. Social History Social History Tobacco Use Smoking status: Never Smokeless tobacco: Never Substance Use Topics Alcohol use: Yes Comment: occasionally Drug use: No REVIEW OF SYSTEMS: as above Reviewed relevant PMHx, PSHx, Social Hx, current medications and allergies. Review of Symptoms REVIEW OF SYSTEMS See HPI. EXAM: BP 124/64 (BP Site: Left Arm, BP Position: Sitting, BP Cuff Size: Regular Adult) Pulse 64 Resp 14 Ht 169 cm (5' 6.54 ) Wt 64.2 kg (141 lb 9.6 oz) LMP 06/22/2007 BMI 22.49 kg/m? General Appearance: Well appearing, alert, in no acute distress, well-hydrated, well nourished.. Skin: Skin color, texture, turgor normal, no suspicious rashes or lesions. Head: Normocephalic, no masses, lesions, tenderness or abnormalities. Neck: Supple, no adenopathy; thyroid symmetric, normal size, no bruits. Back:no pain to palpation of vertebrae, good flexion and extension, good range of motion, no muscle tenderness, reflexes are 2+ and symmetric, motor and sensory appear to be normal, negative SLR test, no evidence of scoliosis Lungs: Lungs clear to auscultation. No wheezing, rhonchi, rales.. Heart: RRR without murmur, gallop, or rubs. No ectopy. Abdomen: Normal abdominal exam, Abdomen soft, non-tender. Bowel sounds normal. No masses, organomegaly. Extremities: No deformities, edema, skin discoloration, clubbing or cyanosis. Good capillary refill. . Peripheral Pulses: Normal. Neurologic: Gait normal. Reflexes normal and symmetric. Sensation grossly intact.. Health Maintenance List HIV SCREENING Never done DEPRESSION ASSESSMENT due on 05/05/2022 ADVANCE DIRECTIVE DISCUSSION Never done PNEUMOCOCCAL: 65+(1 - PCV) Never done COVID-19 VACCINE(5 - Moderna series) due on 12/17/2023 INFLUENZA(1) due on (more content not included)... [facility] 12-16-2022 Nurse Note Pt receives the prevnar 20 today in office as orderd. Tolerates well. documented in this encounter [facility] 12-16-2022 History of Present illness Narrative Chief Complaint Patient presents with: Pre-Op Visit HPI Mary Garcia is a 67 year old female who presents here today for Above Complaints. Mary is an established patient of Dr. Cherry, and myself. Concerns today.. Pre-op clearance physical --- Scheduled on 12/24/22 for L shoulder diagnostic and operative arthroscopy with rotator cuff repair, mini open biceps tenodesis. Surgeon Dr. Basurto with [facility]. Had lab work and EKG done Friday at hospital -- reviewed with pt. Last surgery was knee replacement -- no difficulties with anesthesia besides mild nausea. No anticoagulation medications. No cardiac or pulmonary history. No concerns today. Past medical history, appointments, medications, allergies reviewed. Previous Medical History PAST MEDICAL HISTORY Diagnosis Date Arthritis knee cartilage Basal cell carcinoma History of torn meniscus of left knee 04/12/2015 surgery 04/12/2015 IRON DEFIC ANEMIA NOS 12/15/2006 Malignant melanoma of skin 03/24/2009 Back- follows w/Dr. Comer Melanoma ([facility]) 2008 Osteopenia of multiple sites 03/2021 Shoulder bursitis 11/16/2021 Squamous cell carcinoma Unspecified constipation Uterine fibroid 7 cm Previous Surgical History PAST SURGICAL HISTORY Procedure Laterality Date ARTHROSCOPY KNEE DIAGNOSTIC W/WO SYNOVIAL BX SPX 08/01/2008 Arthroscopy, knee ARTHRP KNE CONDYLE&PLATU MEDIAL&LAT COMPARTMENTS 2017 COLONOSCOPY FLX DX W/COLLJ SPEC WHEN PFRMD 02/09/2010 Colonoscopy COLONOSCOPY FLX DX W/COLLJ SPEC WHEN PFRMD 02/21/2020 Colonoscopy repeat in 10 years-normal w/Dr. Burnette JOINT REPLACEMENT HX Right 2018 LEG VEIN LEFT 07/2012 laser ablation of veins on both legs melanoma skin 03/24/09 malignant- back, Dr. Rodriguez removed OPEN REPAIR OF ROTATOR CUFF ACUTE 2003 Rotator cuff repair RIGHT SHOULDER PAST SURGICAL HISTORY OF 2003 BASAL CELL CARCINOMA REMOVED FROM HER BACK PAST SURGICAL HISTORY OF 2005 left shoulder surgery SKIN BIOPSY HX TONSILLECTOMY HX TONSILLECTOMY PRIMARY/SECONDARY <AGE 14 had done as an adult Family History FAMILY HISTORY Problem Relation Age of Onset Heart Mother Alzheimer's Disease Mother other (hypotension) Mother Coronary Artery Disease Father Diabetes Father other (multiple myeloma) Father Diabetes Sister other (heart disease) Sister Prostate Cancer Brother Diabetes Brother x 2 Colon Cancer Brother Breast Cancer Maternal Aunt strong breast cancer on maternal side Patient Allergies ALLERGIES No Known Allergies Current Medications Current Outpatient Medications on File Prior to Visit Medication Sig VITAMIN B COMPLEX-100 ORAL Take 1 capsule by mouth once daily. cetirizine (ZYRTEC) 10 mg tablet Take 1 tablet by mouth once daily. multivitamin tablet Take 1 tablet by mouth once daily. CALCIUM 500 MG TAB Take one(1) tablet twice daily. No current facility-administered medications on file prior to visit. Social History Social History Tobacco Use Smoking status: Never Smokeless tobacco: Never Substance Use Topics Alcohol use: Yes Comment: occasionally Drug use: No REVIEW OF SYSTEMS: as above Reviewed relevant PMHx, PSHx, Social Hx, current medications and allergies. Review of Symptoms REVIEW OF SYSTEMS See HPI. EXAM: BP 124/64 (BP Site: Left Arm, BP Position: Sitting, BP Cuff Size: Regular Adult) Pulse 64 Resp 14 Ht 169 cm (5' 6.54 ) Wt 64.2 kg (141 lb 9.6 oz) LMP 06/22/2007 BMI 22.49 kg/m General Appearance: Well appearing, alert, in no acute distress, well-hydrated, well nourished.. Skin: Skin color, texture, turgor normal, no suspicious rashes or lesions. Head: Normocephalic, no masses, lesions, tenderness or abnormalities. Neck: Supple, no adenopathy; thyroid symmetric, normal size, no bruits. Back:no pain to palpation of vertebrae, good flexion and extension, good range of motion, no muscle tenderness, reflexes are 2+ and symmetric, motor and sensory appear to be normal, negative SLR test, no evidence of scoliosis Lungs: Lungs clear to auscultation. No wheezing, rhonchi, rales.. Heart: RRR without murmur, gallop, or rubs. No ectopy. Abdomen: Normal abdominal exam, Abdomen soft, non-tender. Bowel sounds normal. No masses, organomegaly. Extremities: No deformities, edema, skin discoloration, clubbing or cyanosis. Good capillary refill. . Peripheral Pulses: Normal. Neurologic: Gait normal. Reflexes normal and symmetric. Sensation grossly intact.. Health Maintenance List HIV SCREENING Never done DEPRESSION ASSESSMENT due on 05/05/2022 ADVANCE DIRECTIVE DISCUSSION Never done PNEUMOCOCCAL: 65+(1 - PCV) Never done COVID-19 VACCINE(5 - Moderna series) due on 12/17/2023 INFLUENZA(1) due on 01/03/2023 MAMMOGRAM due on 05/09/2023 DTAP,TDAP,TD(2 - Td or Tdap) due on 06/14/2024 DIABETES SCREEN due on 02/27/2025 LIPID SCREEN due on 02/27/2027 COLORECTAL CANCER SCREENING due on 02/20/2030 BONE DENSITY Completed SHINGRIX VACCINE Completed HEPATITIS C SCREENING Addressed PAP TESTING Discontinued ASSESSMENT/PLAN: 1. Encounter for immunization - ICD9: V03.89, ICD10: Z23 (primary diagnosis) - PNEUMOCOCCAL VACCINE (PREVNAR 20) 2. Pre-operative clearance - ICD9: V72.84, ICD10: Z01.818 Clearance from PCP for upcoming surgery as scheduled. Paperwork filled out and faxed to Dr. Basurto's office. RTO as needed. Prescription instructions reviewed with patient as applicable. Potential red flag symptoms discussed with the patient. Reviewed appropriate action plan to take if red flag symptoms occur. Patient agreeable to treatment plan. Donna Fritz APRN.KATIE [address] [place] [address] documented in this encounter [facility] 12-06-2022 Miscellaneous Notes Will keep and fill out during appointment time. Donna Azar, CURRICULUM COACH.REFINERY OPERATOR HELPER Patient has been identified by name and date of : Yes, Provider Donna Azar CNP Date 12/16/22 Time 8:20 Type of form: pre op Form received via: Fax When form is completed, fax form to fax number provided. Form has been forwarded to: Provider's desk. Provider name: Donna Hamilton LPN documented in this encounter [facility] 10-21-2022 Note HNO ID: [id number] Author: Dirk Foster APRN.KATIE Service: ? Author Type: Nurse Practitioner Type: Progress Notes Filed: 10/21/2022 11:53 AM Note Text: 10/21/2022 Patient presents with: Nasal Congestion: And post nasal drainage, watery eyes x a few days SUBJECTIVE: This is a 67 year old that is here today for Above Complaints. For the last few days has had nasal drainage, watery eyes and stuff in back of throat. Took mucinex this AM. Usually takes Claritin daily. Admits to sinus pain and pressure around eyes. Reports normally has this a couple times a year and needs antibiotic to clear. Denies sick contacts, headaches, ear pain, fevers, chills, nasal congestion, SOB, dyspnea, nausea, vomiting or diarrhea PAST MEDICAL HISTORY Diagnosis Date Arthritis knee cartilage Basal cell carcinoma History of torn meniscus of left knee 04/12/2015 surgery 04/12/2015 IRON DEFIC ANEMIA NOS 12/15/2006 Malignant melanoma of skin 03/24/2009 Back- follows w/Dr. Comer Melanoma ([facility]) 2008 Osteopenia of multiple sites 03/2021 Shoulder bursitis 11/16/2021 Squamous cell carcinoma Unspecified constipation Uterine fibroid 7 cm ALLERGIES Patient has no known allergies. MEDICATIONS Current Outpatient Medications Medication Sig cetirizine (ZYRTEC) 10 mg tablet Take 1 tablet by mouth once daily. multivitamin tablet Take 1 tablet by mouth once daily. CALCIUM 500 MG TAB Take one(1) tablet twice daily. No current facility-administered medications for this visit. Medications and allergies reviewed by this provider. SOCIAL HISTORY Social History Tobacco Use Smoking status: Never Smokeless tobacco: Never Substance Use Topics Alcohol use: Yes Comment: occasionally Drug use: No REVIEW OF SYSTEMS All other reviewed and negative other than HPI. OBJECTIVE: BP 130/88 Pulse 76 Temp 37 ?C (98.6 ?F) Resp 16 Wt 64.2 kg (141 lb 9.6 oz) LMP 06/22/2007 SpO2 97% BMI 22.49 kg/m? . Vital signs reviewed by this provider. APPEARANCE Well appearing, alert, in no acute distress, well-hydrated, well nourished. EYES conjunctiva and sclera normal. EARS External ears normal, canals clear NOSE/SINUS positive findings: sinus tenderness frontal bilateral, maxillary bilateral THROAT normal, no erythema NECK Supple, no adenopathy; thyroid symmetric, normal size, no bruits HEART RRR with normal S1 and S2, no murmurs, no gallops, no JVD appreciated LUNG clear to auscultation. No wheezes, rhonchi or rales SKIN Skin color, texture, turgor normal, no suspicious rashes or lesions to exposed skin HIV SCREENING Never done DEPRESSION ASSESSMENT due on 05/05/2022 ADVANCE DIRECTIVE DISCUSSION Never done PNEUMOCOCCAL: 65+(1 - PCV) Never done MAMMOGRAM due on 05/09/2023 DTAP,TDAP,TD(2 - Td or Tdap) due on 06/14/2024 DIABETES SCREEN due on 02/27/2025 LIPID SCREEN due on 02/27/2027 COLORECTAL CANCER SCREENING due on 02/20/2030 BONE DENSITY Completed INFLUENZA Completed SHINGRIX VACCINE Completed COVID-19 VACCINE Completed HEPATITIS C SCREENING Addressed ASSESSMENT/PLAN: 1. Frontal sinus pain - ICD9: 478.19, ICD10: J34.89 - Will begin treatment with Augmentin 875 mg PO BID for 10 days - The patient should also be given OTC cough and cold meds as needed and nasal saline gtts and suction prn for the first 5-7 days of treatment. - Supportive care with plenty of fluids, rest, and analgesia prn. - Follow up in 3-5 days if symptoms persist or worsen. - AMOXICILLIN 875 MG-POTASSIUM CLAVULANATE 125 MG TABLET Dirk Foster, CURRICULUM COACH.REFINERY OPERATOR HELPER Prescription instructions reviewed with patient as applicable. Patient advised if symptoms do not improve or if symptoms worsen sooner, to contact their primary care physician. Potential red flag symptoms discussed with the patient. Reviewed appropriate action plan to take if red flag symptoms occur. Patient agreeable to treatment plan. I spent a total of 20 minutes on the date of the service which included preparing to see the patient, [id number] patient care, completing clinical documentation, obtaining and/or reviewing separately obtained history, performing a medically appropriate examination, counseling and educating the patient/family/caregiver, and ordering medications, tests, or procedures. [facility] 10-21-2022 History of Present illness Narrative 10/21/2022 Patient presents with: Nasal Congestion: And post nasal drainage, watery eyes x a few days SUBJECTIVE: This is a 67 year old that is here today for Above Complaints. For the last few days has had nasal drainage, watery eyes and stuff in back of throat. Took mucinex this AM. Usually takes Claritin daily. Admits to sinus pain and pressure around eyes. Reports normally has this a couple times a year and needs antibiotic to clear. Denies sick contacts, headaches, ear pain, fevers, chills, nasal congestion, SOB, dyspnea, nausea, vomiting or diarrhea PAST MEDICAL HISTORY Diagnosis Date Arthritis knee cartilage Basal cell carcinoma History of torn meniscus of left knee 04/12/2015 surgery 04/12/2015 IRON DEFIC ANEMIA NOS 12/15/2006 Malignant melanoma of skin 03/24/2009 Back- follows w/Dr. Comer Melanoma ([facility]) 2008 Osteopenia of multiple sites 03/2021 Shoulder bursitis 11/16/2021 Squamous cell carcinoma Unspecified constipation Uterine fibroid 7 cm ALLERGIES Patient has no known allergies. MEDICATIONS Current Outpatient Medications Medication Sig cetirizine (ZYRTEC) 10 mg tablet Take 1 tablet by mouth once daily. multivitamin tablet Take 1 tablet by mouth once daily. CALCIUM 500 MG TAB Take one(1) tablet twice daily. No current facility-administered medications for this visit. Medications and allergies reviewed by this provider. SOCIAL HISTORY Social History Tobacco Use Smoking status: Never Smokeless tobacco: Never Substance Use Topics Alcohol use: Yes Comment: occasionally Drug use: No REVIEW OF SYSTEMS All other reviewed and negative other than HPI. OBJECTIVE: BP 130/88 Pulse 76 Temp 37 C (98.6 F) Resp 16 Wt 64.2 kg (141 lb 9.6 oz) LMP 06/22/2007 SpO2 97% BMI 22.49 kg/m . Vital signs reviewed by this provider. APPEARANCE Well appearing, alert, in no acute distress, well-hydrated, well nourished. EYES conjunctiva and sclera normal. EARS External ears normal, canals clear NOSE/SINUS positive findings: sinus tenderness frontal bilateral, maxillary bilateral THROAT normal, no erythema NECK Supple, no adenopathy; thyroid symmetric, normal size, no bruits HEART RRR with normal S1 and S2, no murmurs, no gallops, no JVD appreciated LUNG clear to auscultation. No wheezes, rhonchi or rales SKIN Skin color, texture, turgor normal, no suspicious rashes or lesions to exposed skin HIV SCREENING Never done DEPRESSION ASSESSMENT due on 05/05/2022 ADVANCE DIRECTIVE DISCUSSION Never done PNEUMOCOCCAL: 65+(1 - PCV) Never done MAMMOGRAM due on 05/09/2023 DTAP,TDAP,TD(2 - Td or Tdap) due on 06/14/2024 DIABETES SCREEN due on 02/27/2025 LIPID SCREEN due on 02/27/2027 COLORECTAL CANCER SCREENING due on 02/20/2030 BONE DENSITY Completed INFLUENZA Completed SHINGRIX VACCINE Completed COVID-19 VACCINE Completed HEPATITIS C SCREENING Addressed ASSESSMENT/PLAN: 1. Frontal sinus pain - ICD9: 478.19, ICD10: J34.89 - Will begin treatment with Augmentin 875 mg PO BID for 10 days - The patient should also be given OTC cough and cold meds as needed and nasal saline gtts and suction prn for the first 5-7 days of treatment. - Supportive care with plenty of fluids, rest, and analgesia prn. - Follow up in 3-5 days if symptoms persist or worsen. - AMOXICILLIN 875 MG-POTASSIUM CLAVULANATE 125 MG TABLET Dirk Podlogar, CURRICULUM COACH.REFINERY OPERATOR HELPER Prescription instructions reviewed with patient as applicable. Patient advised if symptoms do not improve or if symptoms worsen sooner, to contact their primary care physician. Potential red flag symptoms discussed with the patient. Reviewed appropriate action plan to take if red flag symptoms occur. Patient agreeable to treatment plan. I spent a total of 20 minutes on the date of the service which included preparing to see the patient, [id number] patient care, completing clinical documentation, obtaining and/or reviewing separately obtained history, performing a medically appropriate examination, counseling and educating the patient/family/caregiver, and ordering medications, tests, or procedures. documented in this encounter [facility] 07-17-2022 Miscellaneous Notes Summary: N-telopeptide Study IRB #: [id number] Title of study: A comparison of serum and urine N-telopeptide marker Home Health Aid: Susanna Cochran MD, Research Coordinator: Leny Grider MS, Spoke to patient and relayed Dr. Alex Cochran's findings that per [facility] website the SOC PTH would not be covered. She understands and was willing to join but will decline at this time. I expressed understanding and thanked her for her time on this with me. Leny Grider Research Mireya documented in this encounter [facility] 07-16-2022 Miscellaneous Notes Summary: N-telopeptide Study IRB #: [id number] Title of study: A comparison of serum and urine N-telopeptide marker Home Health Aid: Susanna Cochran MD, Research Coordinator: Leny Grider MS, Spoke with patient regarding our study and detailed that the research labs, N-telopeptide serum and urine samples, are covered by the study. Explained at length about an additonal SOC PTH assay being ordered. Patient expressed understanding. She is going to contact her insurance company and ask if this is covered under her Medicare plan. I thanked her for her time. Leny Grider Research Coordinator documented in this encounter [facility] 05-01-2022 Note HNO ID: [id number] Author: Donna Fritz APRN.KATIE Service: ? Author Type: Nurse Practitioner Type: Progress Notes Filed: 05/01/2022 1:31 PM Note Text: Chief Complaint Patient presents with: Sinus Problem: States was in [facility] last week when i started sinus drainage , went to urgent care [facility] there was prescribed a steroid for 5 days finished Friday and capmist which still using. Now pressure behinfd eyes and in cheeks and cough, sinus drainage and bloiwng nose HPI Mary Garcia is a 66 year old female who presents here today for Above Complaints. Mary is an established patient of Dr. Fernando DO. She is a new patient to me today. Concerns today... Sinus infection -- Symptoms x 1 week. Mucus in back of throat. Nasal drainage down throat. Eye crusty in the morning. Coughing fits intermittently, trying to cough stuff out. Productive cough --- green/yellow in color. Denies any wheezing or SOB. Some chest discomfort with coughing fits but otherwise no chest pain. Was seen at urgent care in [facility] last week for these symptoms. Given medrol dose med and Capmist as needed. Medications are giving some relief but not enough. Finished steroid on Friday. COVID and flu was negative at urgent care. Has been around numerous family members for the holidays. No other concerns or complaints. Past medical history, appointments, medications, allergies reviewed. Previous Medical History PAST MEDICAL HISTORY Diagnosis Date Arthritis knee cartilage Basal cell carcinoma History of torn meniscus of left knee 04/12/2015 surgery 04/12/2015 IRON DEFIC ANEMIA NOS 12/15/2006 Malignant melanoma of skin 03/24/2009 Back- follows w/Dr. Comer Melanoma ([facility]) 2008 Osteopenia of multiple sites 03/2021 Shoulder bursitis 11/16/2021 Squamous cell carcinoma Unspecified constipation Uterine fibroid 7 cm Previous Surgical History PAST SURGICAL HISTORY Procedure Laterality Date ARTHROSCOPY KNEE DIAGNOSTIC W/WO SYNOVIAL BX SPX 08/01/2008 Arthroscopy, knee ARTHRP KNE CONDYLEANDPLATU MEDIALANDLAT COMPARTMENTS 2016 COLONOSCOPY FLX DX W/COLLJ SPEC WHEN PFRMD 02/09/2010 Colonoscopy COLONOSCOPY FLX DX W/COLLJ SPEC WHEN PFRMD 02/21/2020 Colonoscopy repeat in 10 years-normal w/Dr. Burnette JOINT REPLACEMENT HX Right 2018 LEG VEIN LEFT 07/2012 laser ablation of veins on both legs melanoma skin 03/24/09 malignant- back, Dr. Napakiak removed OPEN REPAIR OF ROTATOR CUFF ACUTE 2004 Rotator cuff repair RIGHT SHOULDER PAST SURGICAL HISTORY OF 2003 BASAL CELL CARCINOMA REMOVED FROM HER BACK PAST SURGICAL HISTORY OF 2005 left shoulder surgery SKIN BIOPSY HX TONSILLECTOMY HX TONSILLECTOMY PRIMARY/SECONDARY had done as an adult Family History FAMILY HISTORY Problem Relation Age of Onset Heart Mother Alzheimer's Disease Mother other (hypotension) Mother Coronary Artery Disease Father Diabetes Father other (multiple myeloma) Father Diabetes Sister other (heart disease) Sister Prostate Cancer Brother Diabetes Brother x 2 Colon Cancer Brother Breast Cancer Maternal Aunt strong breast cancer on maternal side Patient Allergies ALLERGIES No Known Allergies Current Medications Current Outpatient Medications on File Prior to Visit Medication Sig cetirizine (ZYRTEC) 10 mg tablet Take 1 tablet by mouth once daily. multivitamin tablet Take 1 tablet by mouth once daily. CALCIUM 500 MG TAB Take one(1) tablet twice daily. No current facility-administered medications on file prior to visit. Social History Social History Tobacco Use Smoking status: Never Smokeless tobacco: Never Substance Use Topics Alcohol use: Yes Comment: occasionally Drug use: No REVIEW OF SYSTEMS: as above Reviewed relevant PMHx, PSHx, Social Hx, current medications and allergies. Review of Symptoms REVIEW OF SYSTEMS See HPI. All other systems are negative. EXAM: BP 130/72 (BP Site: Left Arm, BP Position: Sitting, BP Cuff Size: Regular Adult) Pulse 78 Temp 37.6 ?C (99.6 ?F) Resp (!) 98 Wt 62.8 kg (138 lb 6.4 oz) LMP 06/22/2007 BMI 21.98 kg/m? General Appearance: Well appearing, alert, in no acute distress, well-hydrated, well nourished.. Skin: Skin color, texture, turgor normal, no suspicious rashes or lesions. Head: Normocephalic, no masses, lesions, tenderness or abnormalities. Nose/Sinuses: Nares normal, septum midline, mucosa normal, no drainage or sinus tenderness. Oropharynx: Lips, mucosa, and tongue normal, teeth and gums normal, oropharynx normal. Neck: Supple, no adenopathy; thyroid symmetric, normal size, no bruits. Back:no pain to palpation of vertebrae, good flexion and extension, good range of motion, no muscle tenderness, reflexes are 2+ and symmetric, motor and sensory appear to be normal, negative SLR test, no evidence of scoliosis Lungs: Lungs clear to auscultation. No wheezing, rhonchi, rales.. H (more content not included)... [facility] 05-01-2022 History of Present illness Narrative Chief Complaint Patient presents with: Sinus Problem: States was in [facility] last week when i started sinus drainage , went to urgent care i a [facility] there was prescribed a steroid for 5 days finished Friday and capmist which still using. Now pressure behinfd eyes and in cheeks and cough, sinus drainage and bloiwng nose HPI Mary Garcia is a 66 year old female who presents here today for Above Complaints. Mary is an established patient of Dr. Fernando DO. She is a new patient to me today. Concerns today... Sinus infection -- Symptoms x 1 week. Mucus in back of throat. Nasal drainage down throat. Eye crusty in the morning. Coughing fits intermittently, trying to cough stuff out. Productive cough --- green/yellow in color. Denies any wheezing or SOB. Some chest discomfort with coughing fits but otherwise no chest pain. Was seen at urgent care in [facility] last week for these symptoms. Given medrol dose med and Capmist as needed. Medications are giving some relief but not enough. Finished steroid on Friday. COVID and flu was negative at urgent care. Has been around numerous family members for the holidays. No other concerns or complaints. Past medical history, appointments, medications, allergies reviewed. Previous Medical History PAST MEDICAL HISTORY Diagnosis Date Arthritis knee cartilage Basal cell carcinoma History of torn meniscus of left knee 04/12/2015 surgery 04/12/2015 IRON DEFIC ANEMIA NOS 12/15/2006 Malignant melanoma of skin 03/24/2009 Back- follows w/Dr. Comer Melanoma ([facility]) 2008 Osteopenia of multiple sites 03/2021 Shoulder bursitis 11/16/2021 Squamous cell carcinoma Unspecified constipation Uterine fibroid 7 cm Previous Surgical History PAST SURGICAL HISTORY Procedure Laterality Date ARTHROSCOPY KNEE DIAGNOSTIC W/WO SYNOVIAL BX SPX 08/01/2008 Arthroscopy, knee ARTHRP KNE CONDYLE&PLATU MEDIAL&LAT COMPARTMENTS 2016 COLONOSCOPY FLX DX W/COLLJ SPEC WHEN PFRMD 02/09/2010 Colonoscopy COLONOSCOPY FLX DX W/COLLJ SPEC WHEN PFRMD 02/21/2020 Colonoscopy repeat in 10 years-normal w/Dr. Burnette JOINT REPLACEMENT HX Right 2018 LEG VEIN LEFT 07/2012 laser ablation of veins on both legs melanoma skin 03/24/09 malignant- back, Dr. Rodriguez removed OPEN REPAIR OF ROTATOR CUFF ACUTE 2003 Rotator cuff repair RIGHT SHOULDER PAST SURGICAL HISTORY OF 2003 BASAL CELL CARCINOMA REMOVED FROM HER BACK PAST SURGICAL HISTORY OF 2005 left shoulder surgery SKIN BIOPSY HX TONSILLECTOMY HX TONSILLECTOMY PRIMARY/SECONDARY <AGE 14 had done as an adult Family History FAMILY HISTORY Problem Relation Age of Onset Heart Mother Alzheimer's Disease Mother other (hypotension) Mother Coronary Artery Disease Father Diabetes Father other (multiple myeloma) Father Diabetes Sister other (heart disease) Sister Prostate Cancer Brother Diabetes Brother x 2 Colon Cancer Brother Breast Cancer Maternal Aunt strong breast cancer on maternal side Patient Allergies ALLERGIES No Known Allergies Current Medications Current Outpatient Medications on File Prior to Visit Medication Sig cetirizine (ZYRTEC) 10 mg tablet Take 1 tablet by mouth once daily. multivitamin tablet Take 1 tablet by mouth once daily. CALCIUM 500 MG TAB Take one(1) tablet twice daily. No current facility-administered medications on file prior to visit. Social History Social History Tobacco Use Smoking status: Never Smokeless tobacco: Never Substance Use Topics Alcohol use: Yes Comment: occasionally Drug use: No REVIEW OF SYSTEMS: as above Reviewed relevant PMHx, PSHx, Social Hx, current medications and allergies. Review of Symptoms REVIEW OF SYSTEMS See HPI. All other systems are negative. EXAM: BP 130/72 (BP Site: Left Arm, BP Position: Sitting, BP Cuff Size: Regular Adult) Pulse 78 Temp 37.6 C (99.6 F) Resp (!) 98 Wt 62.8 kg (138 lb 6.4 oz) LMP 06/22/2007 BMI 21.98 kg/m General Appearance: Well appearing, alert, in no acute distress, well-hydrated, well nourished.. Skin: Skin color, texture, turgor normal, no suspicious rashes or lesions. Head: Normocephalic, no masses, lesions, tenderness or abnormalities. Nose/Sinuses: Nares normal, septum midline, mucosa normal, no drainage or sinus tenderness. Oropharynx: Lips, mucosa, and tongue normal, teeth and gums normal, oropharynx normal. Neck: Supple, no adenopathy; thyroid symmetric, normal size, no bruits. Back:no pain to palpation of vertebrae, good flexion and extension, good range of motion, no muscle tenderness, reflexes are 2+ and symmetric, motor and sensory appear to be normal, negative SLR test, no evidence of scoliosis Lungs: Lungs clear to auscultation. No wheezing, rhonchi, rales.. Heart: RRR without murmur, gallop, or rubs. No ectopy. Health Maintenance List HIV SCREENING Never done MAMMOGRAM due on 04/24/2021 PAP TESTING due on 04/15/2022 HPV TESTING due on 04/15/2022 DTAP,TDAP,TD(2 - Td or Tdap) due on 06/14/2024 DIABETES SCREEN due on 02/27/2025 LIPID SCREEN due on 02/27/2027 COLORECTAL CANCER SCREENING due on 02/20/2030 INFLUENZA Completed DEPRESSION ASSESSMENT Completed SHINGRIX VACCINE Completed COVID-19 VACCINE Completed HEPATITIS C SCREENING Addressed ASSESSMENT/PLAN: 1. Productive cough - ICD9: 786.2, ICD10: R05.8 Zpak x 5 days Tessalone perles as needed for coughing fits. No concerns or signs of pneumonia. - AZITHROMYCIN 250 MG TABLET - BENZONATATE 100 MG CAPSULE RTO as needed if symptoms worsen or do not improve. Prescription instructions reviewed with patient as applicable. Potential red flag symptoms discussed with the patient. Reviewed appropriate action plan to take if red flag symptoms occur. Patient agreeable to treatment plan. Donna Fritz APRN.CNP [address] [place] [address] documented in this encounter [facility] 03-06-2022 Miscellaneous Notes Pt informed, verbalized understanding. Pt reports she does not currently have sx. Will recheck urine in 1-2 weeks as ordered. Alicia Woodson Ma Please inform patient that her labs are all stable except her urine showed blood and leukocytes. Is she having any urinary symptoms? If so, recommend treating with 5 days of antibiotic. If not, then recommend rechecking urine in 1-2 weeks as ordered Mohan Cherry DO documented in this encounter [facility] 02-26-2022 Instructions Mohan Cherry DO - 02/26/2022 1:29 PM EDT Voltaren 1% cream documented in this encounter [facility] 02-26-2022 History of Present illness Narrative CC: Mary Garcia is a 66 year old female who presents to the office for physical HPI: Overall doing well Continues to see [facility] Physicist regularly due to hx of BASAL CELL CARCINOMA and SQUAMOUS CELL CARCINOMA and melanoma Arthritis, overall stable Osteopenia, last BMD 1 year ago, taking supplements and continuing weight bearing exercises PAST MEDICAL HISTORY Diagnosis Date Arthritis knee cartilage Basal cell carcinoma History of torn meniscus of left knee 04/12/2015 surgery 04/12/2015 IRON DEFIC ANEMIA NOS 12/15/2006 Malignant melanoma of skin 03/24/2009 Back- follows w/Dr. Comer Melanoma ([facility]) 2009 Osteopenia of multiple sites 03/2021 Shoulder bursitis 11/16/2021 Squamous cell carcinoma Unspecified constipation Uterine fibroid 7 cm PAST SURGICAL HISTORY Procedure Laterality Date ARTHROSCOPY KNEE DIAGNOSTIC W/WO SYNOVIAL BX SPX 08/01/2008 Arthroscopy, knee ARTHRP KNE CONDYLE&PLATU MEDIAL&LAT COMPARTMENTS 2016 COLONOSCOPY FLX DX W/COLLJ SPEC WHEN PFRMD 02/09/2010 Colonoscopy COLONOSCOPY FLX DX W/COLLJ SPEC WHEN PFRMD 02/21/2020 Colonoscopy repeat in 10 years-normal w/Dr. Burnette JOINT REPLACEMENT HX Right 2018 LEG VEIN LEFT 07/2012 laser ablation of veins on both legs melanoma skin 03/24/09 malignant- back, Dr. Rodriguez removed OPEN REPAIR OF ROTATOR CUFF ACUTE 2003 Rotator cuff repair RIGHT SHOULDER PAST SURGICAL HISTORY OF 2003 BASAL CELL CARCINOMA REMOVED FROM HER BACK PAST SURGICAL HISTORY OF 2005 left shoulder surgery SKIN BIOPSY HX TONSILLECTOMY HX TONSILLECTOMY PRIMARY/SECONDARY <AGE 14 had done as an adult Social History: Social History Tobacco Use Smoking status: Never Smokeless tobacco: Never Substance Use Topics Alcohol use: Yes Comment: occasionally Drug use: No FAMILY HISTORY Problem Relation Age of Onset Heart Mother Alzheimer's Disease Mother other (hypotension) Mother Coronary Artery Disease Father Diabetes Father other (multiple myeloma) Father Diabetes Sister other (heart disease) Sister Prostate Cancer Brother Diabetes Brother x 2 Colon Cancer Brother Breast Cancer Maternal Aunt strong breast cancer on maternal side Current Outpatient prescriptions: multivitamin tablet Take 1 tablet by mouth once daily. CALCIUM 500 MG TAB Take one(1) tablet twice daily. Allergies: ALLERGIES No Known Allergies ROS: See HPI PE: 02/26/22 1306 BP: 100/60 Pulse: 76 Resp: 16 Temp: 36.1 C (97 F) TempSrc: Left Tympanic Weight: 62.6 kg (138 lb) Height: 169 cm (5' 6.54 ) Gen: A&O, NAD, non-toxic appearing, Pleasant, cooperative HEENT: NT/AC, PERRLA, EOMs intact b/l, nares clear and patent b/l, pharynx without erythema, exudate or lesions. Uvula midline. EACs without erythema or debris. TMs pearly shaw with intact landmarks b/l. Neck: supple, No cervical LAD, no thyromegaly, no carotid bruits CV: RRR, normal S1 and S2, no murmurs, no gallops, no rubs, Pulses 2+ and symmetric in UE and LE b/l Lungs: normal respiratory effort, CTA b/l, no wheezing or rhonchi or rales Abd: soft, NT, ND, +BS, no hepatosplenomegaly MS: FROM all 4 extremities Neuro: CN II-XII intact b/l, strength 5/5 b/l UE and LE, DTRs 2/4 UE and LE, sensation intact. Skin: warm, dry, intact, No rashes or lesions on exposed skin. No edema, normal pulses ASSESSMENT/PLAN: 1. Well adult exam - ICD9: V70.0, ICD10: Z00.00 (primary diagnosis) - Counseled on healthy diet and regular exercise - Calcium intake with supplements or by diet of 1000 mg/day for under 50, 4143-2079 mg/day for 50+ - COMP METABOLIC PANEL - CBC + DIFF - LIPID PANEL BASIC - HGB A1C - VITAMIN B12 BLOOD - TSH BLD - T4 FREE/FREE THYROX - URINALYSIS, WITH MICROSCOPIC 2. Osteopenia, senile - ICD9: 733.90, ICD10: M85.80 - Reviewed the need for Calcium and Vitamin D supplements and weight bearing exercise as tolerated 3. Dyslipidemia - ICD9: 272.4, ICD10: E78.5 - to be determined upon return of lab results - Encouraged following a low fat, low cholesterol diet. - Check fasting lipid panel Mohan Cherry DO To ER if develops chest pain, shortness of breath, or severe worsening of symptoms. Discussed risks, benefits, alternatives, and potential side effects of medications. Patient expressed understanding and agreed with the plan. Mohan Cherry DO [address] [place] [address] documented in this encounter [facility] documented as of this encounter (statuses as of 02/26/2022) [facility] History of Past illness Narrative* Problem Noted Date Resolved Date Heel pain 09/12/2011 03/23/2015 Calcaneal spur 01/25/2011 03/23/2015 Disorder of bone and cartilage, unspecified 11/200902/09/2013 Other seborrheic keratosis 04/24/200703/23 Iron deficiency anemia, unspecified 12/15/2006 03/23/2015 documented as of this encounter (statuses as of 03/06/2022) [facility] of Past illness Narrative* Problem Noted Date Resolved Date Heel pain 09/12/2011 03/23/2015 Calcaneal spur 01/25/2011 03/23/2015 Disorder of bone and cartilage, unspecified 11/200902/09/2013 Other seborrheic keratosis 04/24/200703/23 Iron deficiency anemia, unspecified 12/15/2006 03/23/2015 documented as of this encounter (statuses as of 05/07/2022) [facility] of [facility] illness Narrative* Problem Noted Date Resolved Date Heel pain 09/12/2011 03/23/2015 Calcaneal spur 01/25/2011 03/23/2015 Disorder of bone and cartilage, unspecified 0 11/200902/09/2013 Other seborrheic keratosis 04/24/200703/23 Iron deficiency anemia, unspecified 12/15/2006 03/23/2015 documented as of this encounter (statuses as of 07/16/2022) [facility] of [facility] Narrative* Problem Noted Date Resolved Date Heel pain 09/12/2011 03/23/2015 Calcaneal spur 01/25/2011 03/23/2015 Disorder of bone and cartilage, unspecified 11/200902/09/2013 Other seborrheic keratosis 04/24/200703/23 Iron deficiency anemia, unspecified 12/15/2006 03/23/2015 documented as of this encounter (statuses as of 07/17/2022) [facility] Narrative* Problem Noted Date Resolved Date Heel pain 09/12/2011 03/23/2015 Calcaneal spur 01/25/2011 03/23/2015 Disorder of bone and cartilage, unspecified 11/200902/09/2013 Other seborrheic keratosis 04/24/200703/23 Iron deficiency anemia, unspecified 12/15/2006 03/23/2015 documented as of this encounter (statuses as of 10/21/2022) [facility] Narrative* Problem Noted Date Diagnosed Date Resolved Date Heel pain 09/12/2011 03/23/2015 Calcaneal spur 01/25/2011 03/23/2015 Disorder of bone and cartilage, unspecified 01/09/2010 02/09/2013 Other seborrheic keratosis 04/24/200705/23/2014 Iron deficiency anemia, unspecified 12/15/2006 03/23/2015 documented as of this encounter (statuses as of 12/06/2022) [facility]* Problem Noted Date Diagnosed Date Resolved Date Heel pain 09/12/2011 03/23/2015 Calcaneal spur 01/25/2011 03/23/2015 Disorder of bone and cartilage, unspecified 01/09/2010 02/09/2013 Other seborrheic keratosis 04/24/200705/23/2014 Iron deficiency anemia, unspecified 12/15/2006 03/23/2015 documented as of this encounter (statuses as of 12/16/2022) [facility]ative* Problem Noted Date Diagnosed Date Resolved Date Heel pain 09/12/2011 03/23/2015 Calcaneal spur 01/25/2011 03/23/2015 Disorder of bone and cartilage, unspecified 01/09/2010 02/09/2013 Other seborrheic keratosis 04/24/200705/23/2014 Iron deficiency anemia, unspecified 12/15/2006 03/23/2015 documented as of this encounter (statuses as of 02/28/2023) [facility] Narrative* Problem Noted Date Diagnosed Date Resolved Date Heel pain 09/12/2011 03/23/2015 Calcaneal spur 01/25/2011 03/23/2015 Disorder of bone and cartilage, unspecified 01/09/2010 02/09/2013 Other seborrheic keratosis 04/24/200705/23/2014 Iron deficiency anemia, unspecified 12/15/2006 03/23/2015 documented as of this encounter (statuses as of 04/24/2023) [facility] note* Diagnosis Well adult exam- Primary Routine general medical examination at a health care facility Osteopenia, senile Disorder of bone and cartilage, unspecified Dyslipidemia Other and unspecified hyperlipidemia [facility] Diagnosis Microscopic hematuria- Primary [facility] Diagnosis Productive cough- Primary Cough [facility] Diagnosis Frontal sinus pain- Primary Other diseases of nasal cavity and sinuses [facility] Diagnosis Encounter for immunization- Primary Need for other specified prophylactic vaccination against single bacterial disease Pre-operative clearance Preoperative examination, unspecified [facility] Diagnosis Osteopenia, senile- Primary Disorder of bone and cartilage, unspecified Dyslipidemia Other and unspecified hyperlipidemia Vitamin D deficiency Unspecified vitamin D deficiency Hyperglycemia Other abnormal glucose Screening for osteoporosis Special screening for osteoporosis Other specified disorders of bone density and structure, multiple sites documented in this encounter [facility] Infection Onset Date Last Indicated Resolved Time COVID-19 Rule-Out 02/26/2022 02/26/2022 Summary Purpose Family History No Family History Records Found Advance Directives No Advanced Directives Records Found Additional Source Comments Source Comments (unrecognize d section and content) In the event this informatio n is protected by the Federal Confidentiality of Alcohol and Drug Abuse Patient Records regulations: The Federal rules restrict any use of the information to criminally investigate or prosecute any alcohol or drug abuse patient.[facility] event this information is protected by the Federal Confidentiality of Alcohol and Drug Abuse Patient Records regulations: The Federal rules restrict any use of the information to criminally investigate or prosecute any alcohol or drug abuse patient.[facility] the event this information is protected by the Federal Confidentiality of Alcohol and Drug Abuse Patient Records regulations: The Federal rules restrict any use of the information to criminally investigate or prosecute any alcohol or drug abuse patient.[facility] the event this information is protected by the Federal Confidentiality of Alcohol and Drug Abuse Patient Records regulations: The Federal rules restrict any use of the information to criminally investigate or prosecute any alcohol or drug abuse patient.[facility] the event this information is protected by the Federal Confidentiality of Alcohol and Drug Abuse Patient Records regulations: The Federal rules restrict any use of the information to criminally investigate or prosecute any alcohol or drug abuse patient.[facility] the event this information is protected by the Federal Confidentiality of Alcohol and Drug Abuse Patient Records regulations: The Federal rules restrict any use of the information to criminally investigate or prosecute any alcohol or drug abuse patient.[facility] the event this information is protected by the Federal Confidentiality of Alcohol and Drug Abuse Patient Records regulations: The Federal rules restrict any use of the information to criminally investigate or prosecute any alcohol or drug abuse patient.[facility] the event this information is protected by the Federal Confidentiality of Alcohol and Drug Abuse Patient Records regulations: The Federal rules restrict any use of the information to criminally investigate or prosecute any alcohol or drug abuse patient.[facility] the event this information is protected by the Federal Confidentiality of Alcohol and Drug Abuse Patient Records regulations: The Federal rules restrict any use of the information to criminally investigate or prosecute any alcohol or drug abuse patient.[facility] the event this information is protected by the Federal Confidentiality of Alcohol and Drug Abuse Patient Records regulations: The Federal rules restrict any use of the information to criminally investigate or prosecute any alcohol or drug abuse patient.[facility] Reason for Visit (unrecogniz ed section and content) Reason Comments Results Reason Comments Sinus Problem States was in [place] last week when i started sinus drainage , went to urgent care [facility] there was prescribed a steroid for 5 days finished Friday and capmist which still using. Now pressure behinfd eyes and in cheeks and cough, sinus drainage and bloiwng nose Specialty Diagnoses / Procedures Referred By Neisha murray Referred To Contact [facility] Diagnoses Sinus Infection x5 days Procedures 4C EST Mohan Cherry, DO [address] [place] [address] [facility] [address] [place] [address] Referral ID Status Reason Start Date Expiration Date Visits Requested Visits Authorized [id number] Pending Review OON/Self Pay Override 2 10/27/2022 1 1 Reason Comments Research Reason Comments Nasal Congestion And post nasal drain age, watery eyes x a few days Reason Comments Forms Reason Comments Pre-Op Visit Reason Comments Medicare Wellness Exam Care Teams (unrecognized sec tion and content) Director Of Scout Work Relationship Specialty Start Date End Date Mohan Cherry DO [address] [place] [address] PCP - General Family Medicine 02/17/13 Director Of Scout Work Relationship Specialty Start Date End Date Mohan Cherry DO [address] [place] [address] PCP - General Family Medicine 02/17/13 Director Of Scout Work Relationship Specialty Start Date End Date Mohan Cherry DO [address] [place] [address] PCP - General Family Medicine 02/17/13 Director Of Scout Work Relationship Specialty Start Date End Date Mohan Cherry DO [address] [place] [address] PCP - General Family Medicine 02/17/13 Director Of Scout Work Relationship Specialty Start Date End Date Mohan Cherry DO [address] [place] [address] PCP - General Family Medicine 02/17/13 Director Of Scout Work Relationship Specialty Start Date End Date Mohan Cherry DO [address] [place] [address] PCP - General Family Medicine 02/17/13 Director Of Scout Work Relationship Specialty Start Date End Date Mohan Cherry DO [address] [place] [address] PCP - General Family Medicine 02/17/13 INFORMATION SOURCE (unrecogn ized section and content) FOR RECORDS PERTAINING TO PATIENTS WHO ARE OR HAVE BEEN ENROLLED IN A CHEMICAL DEPENDENCY/SUBSTANCEABUSE PROGRAM, SOME INFORMATION MAY BE OMITTED. This clinical summary was aggregated from multiple sources. Caution should be exercised in using it in the provision of clinical care. This summary normalizes information from multiple sources, and as a consequence, information in this document may materially change the coding, format and clinical context of patient data. In addition, data may be omitted in some cases. CLINICAL DECISIONS SHOULD BE BASED ON THE PRIMARY CLINICAL RECORDS. [employer] [facility]. provides no warranty or guarantee of the accuracy or completeness of information in this document.
== END | disposition home or self-care (01) ==
LOC: OPBI 08:29
PROVIDERS: PCP Student in an Organized Health Care Education/Training Program; Referring Provider Nurse Practitioner Women's Health; Visit Provider Nurse Practitioner Women's Health
DX: Z12.31 Encounter for screening mammogram for malignant neoplasm of breast (principal); Z80.3 Family history of malignant neoplasm of breast
CPT/HCPCS: 77063; 77067

== ENCOUNTER → 2024-05-13 | Outpatient (CLI) | payer MEDICARE, OTHER, SELFPAY ==
--- NOTE | 2024-05-13 07:43 | BI_ITS ---
MAMMOGRAPHY - BILATERAL SCREENING REASON FOR EXAM: Female, 68 years old. Routine annual screening examination. PERTINENT HISTORY: Aunts with breast cancer. TECHNIQUE: Digital bilateral breast fidel (3D mammographic acquisition) in the CC and MLO projections. 2-D mediolateral oblique (MLO) and craniocaudad (CC) views of both breasts were obtained. CAD: Full Field Digital Mammography with Computer Added Detection was performed. COMPARISON: Comparison is made with prior study dated May 12, 2023 and May 09, 2022. FINDINGS: Breast Composition: The breasts are heterogeneously dense, which may obscure small masses. Questionable 4.8 mm x 5.8 mm nodule in the slightly inferior anterior central aspect of the right breast. The patient will be recalled for additional views including compression spot views and 90 degree lateral No other significant abnormalities are identified. BI/SCRN MAMM (CAD)W/FIDEL BILAT IMPRESSION: Questionable 4.8 mm x 5.8 mm nodule in the slightly inferior anterior central aspect of the right breast as described. The patient will be recalled for additional views as described. Recall Side: Right Breast ASSESSMENT CATEGORY: BIRADS Category 0: Incomplete. Need additional imaging evaluation. A letter regarding these results will be sent to the patient by the facility within 30 days. Approximately 10% of breast cancers are not detected by mammography. A normal mammogram should not delay biopsy of a clinically suspicious abnormality. [id number] Electronically Signed: Torres Toussaint MD at 9:00 EST ,
== END | disposition home or self-care (01) ==
LOC: OPBI 07:42
PROVIDERS: PCP Student in an Organized Health Care Education/Training Program; Referring Provider Nurse Practitioner Women's Health; Visit Provider Nurse Practitioner Women's Health
DX: Z12.31 Encounter for screening mammogram for malignant neoplasm of breast (principal); Z80.3 Family history of malignant neoplasm of breast
CPT/HCPCS: 77063; 77067

== ENCOUNTER → 2024-05-17 | Outpatient (CLI) | payer MEDICARE, OTHER, SELFPAY | END | disposition home or self-care (01) | LOC: BWCLAB 09:27 | PROVIDERS: PCP Student in an Organized Health Care Education/Training Program; Referring Provider Nurse Practitioner Women's Health; Visit Provider Nurse Practitioner Women's Health | DX: Z13.21 Encounter for screening for nutritional disorder (principal); Z80.0 Family history of malignant neoplasm of digestive organs; Z80.3 Family history of malignant neoplasm of breast; Z80.42 Family history of malignant neoplasm of prostate; E55.9 Vitamin D deficiency, unspecified ==

== ENCOUNTER → 2024-05-17 | Outpatient (CLI) | payer MEDICARE, OTHER, SELFPAY ==
--- NOTE | 2024-05-17 14:18 | BI_ITS ---
MAMMOGRAPHY - UNILATERAL DIAGNOSTIC: RIGHT BREAST REASON FOR EXAM: Female, 68 years old. Abnormal screening mammogram. PERTINENT HISTORY: Aunts with breast cancer. TECHNIQUE: 90 degree lateral as well as compression spot views of the right breast were obtained. CAD: Full Field Digital Mammography with Computer Added Detection was performed. COMPARISON: Comparison is made with prior mammogram dated May 13, 2024. FINDINGS: Breast Composition: The breasts are heterogeneously dense, which may obscure small masses. There are no dominant masses or suspicious calcifications. No other significant abnormalities are identified. BI/DIAG MAMM W/CAD, UNILAT IMPRESSION: Negative unilateral diagnostic mammogram. Targeted sonographic correlation recommended for further evaluation. ASSESSMENT CATEGORY: BIRADS Category 0: Incomplete. Need additional imaging evaluation. A letter regarding these results will be sent to the patient by the facility within 30 days. Approximately 10% of breast cancers are not detected by mammography. A normal mammogram should not delay biopsy of a clinically suspicious abnormality. Electronically Signed: Torres Toussaint MD at 14:58 EST ,
--- NOTE | 2024-05-17 14:18 | US_ITS ---
STUDY: ULTRASOUND BREAST - RIGHT REASON FOR EXAM: Female, 68 years old. Abnormal screening mammogram. TECHNIQUE: Axial and longitudinal images of the RIGHT breast were performed with a high resolution ultrasound transducer. # OF IMAGES: 35 COMPARISON: Comparison is made with prior mammogram dated November 10, 2024 and prior mammogram done earlier in the day. FINDINGS: RIGHT Breast: The lateral inferior quadrant of the right breast was examined with ultrasound. Mild degree of ductal dilatation lateral to the areola. US/Breast Limited Unilateral IMPRESSION: Mild degree of ductal dilatation lateral to the areola. ASSESSMENT CATEGORY: BIRADS Category 2: Benign. A letter regarding these results will be sent to the patient by the facility within 30 days. Electronically Signed: Torres Toussaint MD at 15:31 EST ,
== END | disposition home or self-care (01) ==
LOC: OPBI 14:16
PROVIDERS: PCP Student in an Organized Health Care Education/Training Program; Referring Provider Nurse Practitioner Women's Health; Visit Provider Nurse Practitioner Women's Health
DX: R92.8 Other abnormal and inconclusive findings on diagnostic imaging of breast (principal); Z80.3 Family history of malignant neoplasm of breast

== ENCOUNTER → 2025-01-18 | Outpatient (CLI) | payer MEDICARE, OTHER, SELFPAY ==
--- NOTE | 2025-01-18 12:51 | US_ITS ---
PROCEDURE: PELVIC W/ TRANSVAGINAL REASON FOR EXAM: CYSTOCELE AND RECTOCELE TECHNIQUE: Procedure Code: USPELTVAG Modality: US Procedure: PELVIC W/ TRANSVAGINAL COMPARISON: None FINDINGS: Patient is postmenopausal. Measurements: Uterus: 9.1 cm x 6 cm x 4.2 cm with a volume of 121.7 mL Endometrial Thickness: 14 mm Right Ovary: 3 cm x 1.4 cm x 1.4 cm with a volume of 3.1 mL. Left Ovary: 2.5 cm x 2.6 cm x 1.3 cm with a volume of 4.5 mL. TRANSABDOMINAL: Uterus: There is an 8 cm x 7.2 cm 5.5 cm calcified fibroid in the fundal portion of the uterus. Endometrium: The endometrium is thickened measuring 14 mm. Small amount of fluid is seen. Right ovary: Normal size and echotexture. Left ovary: Normal size and echotexture. Other: No large pelvic mass identified. Transvaginal sonography was performed to better visualize the endometrium. TRANSVAGINAL: Uterus: Retroverted. Large fundal fibroid with calcification. Endometrium: The endometrium is thickened and measures 14 mm. It is heterogeneous with multiple cystic structure. Right ovary: Normal size and echotexture. Left ovary: Normal size and echotexture. Other adnexal findings: None. Cul-de-sac: No free intraperitoneal fluid identified. Tenderness: No tenderness US/Pelvic w/ Transvaginal IMPRESSION: Fibroid uterus. Thickening of the endometrium as described. Clinical correlation recommended. Reading Location: [place] [id number]
== END | disposition home or self-care (01) ==
LOC: US 12:49
PROVIDERS: PCP Student in an Organized Health Care Education/Training Program; Referring Provider Obstetrics & Gynecology; Visit Provider Obstetrics & Gynecology
DX: N81.10 Cystocele, unspecified (principal); N81.6 Rectocele
CPT/HCPCS: 76830; 76856

== ENCOUNTER → 2025-01-25 | Outpatient (CLI) | payer MEDICARE, OTHER, SELFPAY ==
--- NOTE | 2025-01-25 | EMB_PTH ---
PATIENT: VIPUL MONTOYA LOC: [facility] U#:[id number] AGE/SX: 69/F ROOM: RE01/25/[address]: SHANNA Henry : 1955 BED: DIS: 01/25/2025 SPEC #: [id number] RECD: 01/25/25 12:22 STATUS: [place] REAlan #: [id number] SAM: 01/25/25 00:[address]: Pricilla Live NP DEPT: SURGICAL PATHOLOGY RECD BY: Naresh Smith ENTERED: 01/25/25 15:22 SP TYPE: ENDOM BX/C NELLA DR: Dr. Mohan King DO Tissues: A - Endometrium, NOS Procedures: Surgery Specimen Level IV HEADER OPERATION: Endometrial biopsy PRE-OP DIAGNOSIS: Thickened endometrium TISSUE SUBMITTED: A- Endometrial tissue MICROSCOPIC DIAGNOSIS A. Endometrium, biopsy: * Squamous and scant endocervical mucosa with acute inflammation and reactive changes. * No endometrium observed. MICROSCOPIC DESCRIPTION Slides are reviewed. GROSS DESCRIPTION A. Received in formalin labeled patient's name and date of are scant flecks of pale jeronimo tissue fragments, approximately 0.3 x 0.2 x <0.1 cm in aggregate. Entirely submitted in 1 cassette. Entirety of the specimen may not survive processing. [place] 01/25/2025 CPT:39575
== END | disposition home or self-care (01) ==
LOC: LABSPEC 11:02
PROVIDERS: PCP Student in an Organized Health Care Education/Training Program; Visit Provider Nurse Practitioner Women's Health
DX: N85.00 Endometrial hyperplasia, unspecified (principal)
CPT/HCPCS: 88305

== ENCOUNTER → 2025-02-02 | Outpatient (CLI) | payer MEDICARE, OTHER, SELFPAY ==
--- NOTE | 2025-02-02 09:30 | EMB_PTH ---
PATIENT: VIPUL MONTOYA LOC: [facility] U#:[id number] AGE/SX: 69/F ROOM: RE02/02/[address]: Dr. Donita Rush DO : 1955 BED: DIS: 02/02/2025 SPEC #: [id number] RECD: 02/02/25 12:14 STATUS: [place] YNES #: [id number] SAM: 02/02/25 09:[address]: Donita Rush DEPT: SURGICAL PATHOLOGY RECD BY: Naresh Smith ENTERED: 02/02/25 15:12 SP TYPE: ENDOM BX/C OTHR DR: Dr. Mohan King, Tissues: A - Endometrium, NOS Procedures: Surgery Specimen Level IV HEADER OPERATION: Endometrial biopsy PRE-OP DIAGNOSIS: Thickened endometrium TISSUE SUBMITTED: A- Endometrial tissue MICROSCOPIC DIAGNOSIS A. Endometrium, biopsy: * Non-diagnostic, no endometrium seen. * Scant benign squamous cervical mucosa is present. MICROSCOPIC DESCRIPTION Slides are reviewed. GROSS DESCRIPTION A. Received in formalin labeled the patient's name and date of are scant flecks of red to light brown apparent tissue, all measuring <0.1 cm. Entirely submitted in 1 cassette. [place] 02/02/2025 CPT:49907
--- NOTE | 2025-02-02 09:30 | EMB_PTH ---
PATIENT: VIPUL MONTOYA LOC: [facility] U#:[id number] AGE/SX: 69/F ROOM: RE02/02/[address]: Dr. Donita Rush DO : 1955 BED: DIS: 02/02/2025 SPEC #: [id number] RECD: 02/02/25 12:14 STATUS: [place] YNES #: [id number] SAM: 02/02/25 09:[address]: Donita Rush DEPT: SURGICAL PATHOLOGY RECD BY: Naresh Smith ENTERED: 02/02/25 15:12 SP TYPE: ENDOM BX/C OTHR DR: Dr. Mohan King, Tissues: A - Endometrium, NOS Procedures: Surgery Specimen Level IV HEADER OPERATION: Endometrial biopsy PRE-OP DIAGNOSIS: Thickened endometrium TISSUE SUBMITTED: A- Endometrial tissue MICROSCOPIC DIAGNOSIS A. Endometrium, biopsy: * Non-diagnostic, no endometrium seen. * Scant benign squamous cervical mucosa is present. MICROSCOPIC DESCRIPTION Slides are reviewed. GROSS DESCRIPTION A. Received in formalin labeled the patient's name and date of are scant flecks of red to light brown apparent tissue, all measuring <0.1 cm. Entirely submitted in 1 cassette. [place] 02/02/2025 CPT:85227
[2025-02-05 22:07] LABS: HPV APTIMA, High Risk Negative (Negative)
== END | disposition home or self-care (01) ==
LOC: LABSPEC 09:41
PROVIDERS: PCP Student in an Organized Health Care Education/Training Program; Referring Provider Obstetrics & Gynecology; Visit Provider Obstetrics & Gynecology
DX: Z12.4 Encounter for screening for malignant neoplasm of cervix (principal); R93.89 Abnormal findings on diagnostic imaging of other specified body structures
CPT/HCPCS: 87624; 88175; 88305; G0145

== ENCOUNTER 2025-03-18 11:01 | Observation (INO) | payer MEDICARE, OTHER, SELFPAY ==
--- NOTE | 2025-03-08 13:12 | EKG12_ITS ---
Test Reason : PREOP Blood Pressure : */* mmHG Vent. Rate : 64 BPM Atrial Rate : 64 BPM P-R Int : 124 ms QRS Dur : 80 ms QT Int : 392 ms P-R-T Axes : 22 56 55 degrees QTcB Int : 404 ms Normal sinus rhythm Normal ECG Confirmed by Nazario Lyon ([id number]), editor farm journal RUSSELL SEGAL ([id number]) on 03/09/2025 7:16:59 AM Referred By: Donita Rush Confirmed By: Nazario Lyon
[2025-03-08 13:28] LABS: Hematocrit 41.2 % (37-47); Hemoglobin 14.2 g/dL (12.0-15.0); Mean Corp Hgb Conc 34.5 g/dL (32-36); Mean Corpuscular Volume 88.2 fL (81-99); Mean Platelet Vol. 9.9 fl (6.2-12.0); Platelet Count 182 K/mm3 (150-450); RBC Distribution Width CV 13.1 % (11.6-14.6); RBC Distribution Width SD 42.3 fl (35.1-43.9); Red Blood Count 4.67 M/mm3 (4.2-5.4); White Blood Count 6.7 K/mm3 (4.4-11.0)
[2025-03-08 14:16] LABS: AST(SGOT) 23 U/L (<=31); Alanine Aminotransfer ALT/SGPT 21 U/L (<=34); Albumin, Serum 4.5 g/dL (3.4-4.8); Alkaline Phosphatase 66 U/L (35-104); Anion Gap 10 (5-15); BUN 14 mg/dL (4-19); BUN/Creat Ratio 23.7 RATIO (10-20); Calcium,Total 9.5 mg/dL (7.6-11.0); Carbon Dioxide 23.6 mmol/L (21.0-32.0); Chloride 107 mmol/L (98-108); Globulin 2.5 g/dL (2.2-4.2); Glucose 97 mg/dL (70-99); Magnesium 2.1 mg/dL (1.5-2.2); Potassium 4.7 mmol/L (3.3-5.1)
--- NOTE | 2025-03-09 10:13 | PAT.ANESEVAL ---
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 When Was Last Pacemaker Check QUESTION #4 FULL TEXT: You/Your Family Experience fever (hyperthermia) with Anesthesia Last Oral Intake Last Oral intake: Last Oral Intake NPO since Meds taken in AM with sips of water? 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 production specialist Female Yes 03/04/25 09:42 HX of Motion Sickness No 03/04/25 09:42 HX of N/V After Surgery No 03/04/25 09:42 Non-Smoker Yes 03/04/25 09:42 Duration of Surgery greater Yes 03/04/25 09:42 than 60 minutes Number of Risk Factors 3 03/04/25 09:42 PONV Score Moderate Risk 03/04/25 09:42 Height & Weight Height & Weight: Anesthesia: Height & Weight Height 5 ft 6.5 in 02/02/25 08:35 Respiratory Assessment Respiratory Assessment - email production specialist: Respiratory Tract Infection Hx - email production specialist Hx Respiratory Tract Infection No 03/04/25 09:42 STOP Sleep Apnea STOP Sleep Apnea - email production specialist: STOP Sleep Apnea - email production specialist Hx Hypertension No 03/04/25 09:42 Hx Sleep Apnea No 03/04/25 09:42 CPAP BIPAP Do you snore loudly (louder No 03/04/25 09:42 than talking or can be heard Do you often feel tired/ No 03/04/25 09:42 fatigued/ sleepy during daytime? Has anyone observed you stop No 03/04/25 09:42 breathing during sleep? STOP Results Negative 03/04/25 09:42 QUESTION #5 FULL TEXT : Do you snore loudly (louder than talking or can be heard through closed doors)? 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 Specify any problems Hx of Preganancy in last 3 N/A 03/04/25 09:42 Months Nurse Filling Out Transfusion NBUCHER 03/04/25 09:42 & Questions: Date: 03/04/25 03/04/25 09:42 Time: 09:43 03/04/25 09:42 Patient unable to answer at this time (ie. confused, unrespo /Reproduction History /Reproductive History - email production specialist: /Reproductive Hx- email production specialist Hx Now No 03/04/25 09:42 Gestational Age (in weeks): EDC: Hx Hx Para Hx Section SAB No 03/04/25 09:42 [facility] Medical History (Updated 03/04/25 @ 09:50 by Maeve Rodgers) History of steroid therapy Wears contact lenses Post-menopausal Cancer Arthritis Gastric reflux Non-smoker Urinary tract infection, site not specified Cyst Uterine prolapse Skin cancer Osteopenia Melanoma Allergies Basal cell carcinoma Home Medications ?Medication ?Instructions ?Recorded ?Last Taken ?Type calcium carbonate (Calcium 500) 500 mg PO BID 04/15/17 Unknown History multivitamin,dg-ybne-rmajxxzf 1 tab PO DAILY 04/20/19 Unknown History (Complete Multivitamin tablet) estradiol 0.01% (0.1 mg/gram) See Rx Instructions vaginal 12/21/24 Unknown Rx vaginal cream .COMPLEX #42.5 grams niacinamide 500 mg tablet 500 mg PO BID 02/15/25 Unknown History Allergy/AdvReac Type Severity Reaction Status Date / Time Environmental Allergies: Allergy Other Verified 03/04/25 09:40 Uncoded (seasonal) Family History Father Diabetes Heart disease Multiple myeloma Mother Osteoporosis Alzheimers disease Aunt Breast cancer 3 maternal aunts Other Colon cancer Myocardial infarction Surgical History History of colonoscopy H/O arthroscopic knee surgery H/O rotator cuff surgery Total knee replacement status Social History Smoking Status: Never smoker alcohol intake: current details: socially 3x per week substance use type: does not use caffeine: Yes what type of physical activity do you participate in: walking, aerobics and weight training frequency: 5-6 times per week seatbelt use: always do you feel safe at home: Yes additional social history: [employer]- 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
[2025-03-18] VITALS (21 sets, daily range): BP systolic 85–125; BP diastolic 56–93; PULSE 57–83; RESP 14–18; TEMP 36.3–36.9; O2SAT 92–100; BMI 22.8; BMI 25.4
--- NOTE | 2025-03-18 | UT_PTH ---
PATIENT: VIPUL MONTOYA LOC: [facility] U#:[id number] AGE/SX: 69/F ROOM: TX321 RE03/18/[address]: Dr. Donita Rush DO : 1955 BED: 1 DIS: 03/19/2025 SPEC #: [id number] RECD: 03/18/25 09:11 STATUS: [place] YNES #: [id number] SAM: 03/18/25 00:[address]: Donita Rush DEPT: SURGICAL PATHOLOGY RECD BY: Naresh Smith ENTERED: 03/18/25 10:27 SP TYPE: UTERUS OTHR DR: MD Dr. Mohan Andino DO Tissues: Uterus, NOS Procedures: Immunohistochemical Stains Surgery Specimen Level V HEADER OPERATION: ERAS, laparoscopic total robotic hysterectomy, bilateral salpingectomy PRE-OP DIAGNOSIS: Uterine fibroid, cystocele with rectocele TISSUE SUBMITTED: A- Cervix, uterus, bilateral fallopian tubes, bilateral ovaries MICROSCOPIC DIAGNOSIS A. Uterus, fallopian tubes, ovaries, laparoscopic total robotic hysterectomy, bilateral salpingo-oophorectomy: Cervix: Benign squamous epithelium with squamous metaplasia, endocervical cysts and focal endosalpingiosis Endometrium: Inactive/weakly proliferative endometrium, benign endometrial polyp(s) Myometrium: Superficial and deep adenomyosis, leiomyomata with areas of calcifying degeneration Bilateral ovaries: Corpora albicantia, endosalpingiosis, fibroma Bilateral fallopian tubes: Plical fibrosis, benign paratubal cysts COMMENT The p16 immunostain (block A1) is negative supporting the diagnosis. MICROSCOPIC DESCRIPTION Slides are reviewed. GROSS DESCRIPTION A. Received in formalin labeled with the patient's name and date of . Designated as cervix, uterus, bilateral fallopian tubes, bilateral ovaries is a 76 g, 8.6 x 5.4 x 3.4 cm uterus with attached adnexa. The serosa is pink-jeronimo to red with a 3.6 x 2.9 cm full-thickness, ragged defect of the posterior fundus. The attached cervix is jeronimo-pink with petechial hemorrhages and measures 4.0 x 2.8 cm; the 0.6 cm os is probe patent. Mucoid containing cyst are present. The specimen is inked as follows: Rpdltvmt-wzkmaUmdrpvdmj-imblqKsltcgncjiw-orange Opening reveals a 5.6 x 2.9 cm endometrial canal lined by jeronimo-pink, focally erythematous endometrium that measures up to 0.5 cm thick. There are 2, grossly superficial polyps in the anterior fundus, 2.2 x 0.8 x 0.4 cm (#1) and 2.1 x 1.2 x 0.6 cm (#2). The myometrium is jeronimo-pink and somewhat trabeculated, measuring up to 1.7 cm thick; a 1.1 cm intramural leiomyoma is identified. Within the specimen container is a focally disrupted, detached leiomyoma, 196.4 g 8.1 x 7.8 x 5.0 cm in aggregate; sectioning reveals focally calcified cut surfaces. The pink-purple to red bilateral fallopian tubes are fimbriated and measure 7.1 x 0.5 cm (L) and 5.6 x 0.5 cm (R). Few paratubal cysts are identified, 1.3 cm in greatest dimension. The jeronimo-white, cerebriform ovaries are solid and measure 3.1 x 1.6 x 1.6 cm (L) and 3.5 2.2 x 1.4 cm (R). Credit Collections Manager sections are submitted in 15 cassettes, following decalcification as follows: A1: Anterior cervixA2: Posterior cervixA3: Anterior endomyometriumA4: Posterior endomyometrium with serosal defectA5: Polyp #1A6-A7: Polyp #2A8: Left fallopian tubeA9: Right fallopian tubeA10: Left bphlqL70: Right [id number]: Intramural [id number]: Detached leiomyoma (following decalcification) [place] 03/18/2025 CPT:82230,41284
--- NOTE | 2025-03-18 06:15 | HP.PCM_ITS ---
History and Physical Date of Admission: 03/18/25 Date of Service: 03/11/25 MR#: [id number] Acct: [id number] Name: VIPUL MONTOYA Rep #: [id number] : 1955 Provider: Dr. Elizabeth Byrne MD Age/Sex: 69/F Location: 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 Required: No Accompanied by: self Is patient in pain?: No Allergies Environmental Allergies: Uncoded (seasonal) Allergy (Verified 03/14/25 15:44) Other Medications ?Medication ?Instructions ?Recorded ?Confirmed ?Type calcium carbonate (Calcium 500) 500 mg PO BID 04/15/17 03/14/25 History multivitamin,[id number] 1 tab PO DAILY 04/20/19 03/14/25 History (Complete Multivitamin tablet) estradiol 0.01% (0.1 mg/gram) See Rx Instructions vaginal 12/21/24 03/14/25 Rx vaginal cream .COMPLEX #42.5 grams niacinamide 500 mg tablet 500 mg PO BID 02/15/25 03/14/25 History amoxicillin 500 mg-potassium 1 tab PO BID #10 tabs 03/14/25 03/14/25 Rx clavulanate 125 mg tablet (Augmentin) fluconazole 100 mg tablet See Rx Instructions PO QDAY #6 tabs 03/14/25 03/14/25 Rx hydroxyzine pamoate 50 mg capsule 50 mg PO QHS PRN inomnia #20 caps 03/14/25 Rx Have you fallen in the past year?: No Nurse's Note: patient denies sx of uti today PFSH Medical History History of steroid therapy Wears contact lenses Post-menopausal Cancer Arthritis Gastric reflux Non-smoker Urinary tract infection, site not specified Cyst Uterine prolapse Skin cancer Osteopenia Melanoma Allergies Basal cell carcinoma Surgical History History of colonoscopy H/O arthroscopic knee surgery H/O rotator cuff surgery Total knee replacement status Family History Father Diabetes Heart disease Multiple myeloma Mother Osteoporosis Alzheimers disease Aunt Breast cancer 3 maternal aunts Other Colon cancer Myocardial infarction Social History Smoking Status: Never smoker alcohol intake: current details: socially 3x per week substance use type: does not use caffeine: Yes what type of physical activity do you participate in: walking, aerobics and weight training frequency: 5-6 times per week seatbelt use: always do you feel safe at home: Yes additional social history: [employer]- Self Employed HPI HPI Urology Chief Complaint: preoperation H&P visit with urine, consent, and UDS review Details: VIPUL MONTOYA, is a 69 F. The patient is here for preoperative history and physical prior to anterior and posterior repair, possible bilateral sacrospinous ligament fixation with dermis, midurethral sling, cystoscopy with bilateral ureteral catheterization. There are no new symptoms since the last visit. The procedure, recovery and expectations were explained. The risks, benefits and alternatives were discussed, including but not limited to, the risks of anesthesia, bleeding, infection, injury, pain and the need for further intervention. We have discussed the risk of exposure to and/or potential harm posed by the COVID-19 virus with having a surgery/procedure at this time. A joint decision was made at this time to proceed with the scheduled surgery/procedure as indicated on the consent form. ROS Const Constitutional: No chills, fatigue, fever(s), headache(s), night sweats, weakness, weight change, abnormal sleep pattern or change in appetite Eyes Eyes: No change in vision ENT ENT: No headache(s) or dry mouth Resp Respiratory: No cough, chest congestion, shortness of breath or wheezing Cardio Cardiology: Positive for other (No chest pain.); No shortness of breath, irregular heart rhythm or lightheadedness Gastro GI: Positive for other (No nausea.); No abdominal pain, change in bowel habits, constipation, diarrhea or vomiting Musc Musculoskeletal: No abnormal gait Skin Skin: No yellowing of the eye, lesions, itchy eyes, rash or skin ulcer Neuro Neurology: No abnormal gait, confusion, dizziness, weakness, headache(s) or memory loss Psych Psychiatric: No abnormal sleep pattern, No change in appetite, No confusion and No memory loss Endo Endocrine: No fatigue, increased thirst/drinking or weight change Aller/Imm Allergy/Immunologic: No itchy eyes or wheezing Jayden/Lymp Hematologic/Lymphatic: No easy bleeding, easy bruising or enlarged lymph nodes Exam Const General: cooperative, healthy appearing, comfortable and no acute distress [facility] Head: normocephalic and atraumatic Ears: hearing grossly normal bilaterally and external ears normal Nose: external nose normal Eyes General: appearance normal, both eyes and all related structures Neck Neck: normal visual inspection and trachea midline Chest Chest palpation & inspection: normal inspection of the chest Resp Effort & Inspection: normal respiratory effort, able to speak in complete sentences and symmetric chest movement Cardio Rate: regular rate GI Inspection: normal to inspection Palpation: soft and nontender General: No CVA tenderness Skin General: no rashes or lesions noted Neuro General: patient alert, patient awake, patient oriented x3 and CN's II-XI intact bilaterally Extrem General: normal to inspection Psych Appearance: grossly normal and well kempt Mental Status: mental status grossly normal Results POC Urinalysis w/Micro Office Urine Color ? Last Edit by Hillary Antoine on 03/11/25 14:33 Office Urine Clarity ? Last Edit by Hillary Antoine on 03/11/25 14:33 Office Urine Glucose Negative Last Edit by Hillary Antoine on 03/11/25 14:33 Office Urine Ketones Negative Last Edit by Hillary Antoine on 03/11/25 14:33 Office Urine Bilirubin Negative Last Edit by Hillary Antoine on 03/11/25 14:3 3 Office Urine Urobilinogen 0.2 mg/dL Last Edit by Hillary Antoine on 03/11/25 14:33 Off Ur Spec [place] 1.005 Last Edit by Hillary Antoine on 03/11/25 14:33 Office Urine pH 8 Last Edit by Hillary Antoine on 03/11/25 14:33 Office Urine Protein Trace Last Edit by Hillary Antoine on 03/11/25 14:33 Office Urine Blood Moderate Last Edit by Hillary Antoine on 03/11/25 14:33 Office Urine Blood Hemolyzed Negative Last Edit by Hillary Antoine on 5 14:33 Office Urine Nitrate Negative Last Edit by Hillary Antoine on 03/11/25 14:33 Off Ur Leukocytes Positive Last Edit by Hillary Antoine on 03/11/25 14:33 Off Ur WBC Microscopic ? Last Edit by Hillary Antoine on 03/11/25 14:33 Off Ur RBC Microscopic ? Last Edit by Hillary Antoine on 03/11/25 14:33 Off Ur Bacteria Microscopic ? Last Edit by Hillary Antoine on 03/11/25 14:33 leuks 500 Supplemental Info The urodynamics were reviewed and discussed with the patient. The bladder capacity is normal. There is no urge incontinence. There is stress incontinence with the leak point pressure below 100 when the pessary was in place. No stress incontinence without the pessary. There no significant increase in the EMG of the pelvic floor during the voiding phase. There is a good detrusor contraction during the voiding phase. There is no elevation of the post void residual. Coding Level of Care Code Off vis,est,level 4 Diagnoses Cystocele with rectocele N81.10; N81.6 Stress incontinence N39.3 Atrophic vaginitis N95.2 Assessment and Plan Assessment and Plan (1) Cystocele with rectocele: Status: Acute (2) Stress incontinence: Status: Acute (3) Atrophic vaginitis: Status: Acute Comment: estradiol cream Orders: Orders POC UA Automated w/Microscopy 03/11/25 N39.0 - Urinary tract infection, site not specified Plan urine culture proceed with surgery as scheduled continue vaginal estrogen cream postoperative expectations and recovery discussed Clinical Quality Measures Falls Risk Screening/Assistive Devices Have you fallen in the past year?: No 03/14/25 [id number] <Electronically signed by Elizabeth Byrne MD> Date Elizabeth Byrne MD
[2025-03-18] MEDS: Scopolamine 1mg/72hr Patch 1 PATCH TD (06:18)
[2025-03-18] MEDS: Magnesium 1 GM over 15 mins IV (06:19)
[2025-03-18] MEDS: Lactated Ringers 1,000 ML 40 ML IV (06:20)
--- NOTE | 2025-03-18 06:44 | PRE.ANES_ITS ---
ASA Classification* ASA Classification ASA Classification: 2 Assessment & Plan Anesthesia* Anesthesia Assessment Anesthesia Assessment: Discussed sedation and/or anesthesia options, risks, benefits, and alternatives with patient/parents/legal guardian/POA. Questions invited. The patient/parents/legal guardian/POA seems to understand and agrees to proceed with anesthesia plan. Reviewed the physical assessment, medical history, allergy history and patient home medications list prior to surgery/procedure/anesthetic and documented any changes. Performed airway and anesthesia risk assessments. Anesthesia Type Anesthesia Type: General History Source History Obtained from:: Patient and Chart Anesthesia Focused Assessment* Temperature: 97.4 F Pulse Rate: 71 Blood Pressure: 125/93 Respiratory Rate: 16 Pulse Ox: 98 Oxygen Delivery Method: Room Air Airway Assessment Mouth opens: >3 cm Mallampati Score: IV Teeth Condition: Chipped/Broken (Patient has a chipped incisor #25.) Neck Range of motion (ROM): Full ROM Labs Anesthesia Preop lab: CBC WBC, (4.4-11.0) 6.7 K/mm3 03/08/25, 13:05 RBC, (4.2-5.4) 4.67 M/mm3 03/08/25, 13:05 Hgb, (12.0-15.0) 14.2 g/dL 03/08/25, 13:05 Hct, (37-47) 41.2 % 03/08/25, 13:05 Plt Count, (150-450) 182 K/mm3 03/08/25, 13:05 CHEMISTRY Potassium, (3.3-5.1) 4.7 mmol/L 03/08/25, 13:05 Sodium, (133-145) 141 mmol/L 03/08/25, 13:05 Magnesium, (1.5-2.2) 2.1 mg/dL 03/08/25, 13:05 BUN, (4-19) 14 mg/dL 03/08/25, 13:05 Creatinine, (0.70-1.20) 0.60 mg/dL L 03/08/25, 13:05 Glucose, (70-99) 97 mg/dL 03/08/25, 13:05 TSH, (0.358-3.74) 3.45 uIU/mL 04/17/18, 07:24 COAG Pre-Assessment Diagnosis/Proposed Procedure Planned Operative Procedure(s): (B) ERAS, Lap Total Robotic Hysterectomy BSO, Cystoscopy Anesthesia History 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 When Was Last Pacemaker Check QUESTION #4 FULL TEXT: You/Your Family Experience fever (hyperthermia) with Anesthesia Last Oral Intake Last Oral intake: Last Oral Intake NPO since 21:00 03/18/25 06:08 Meds taken in AM with sips of Yes 03/18/25 06:08 water? 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 Female Yes 03/04/25 09:42 HX of Motion Sickness No 03/04/25 09:42 HX of N/V After Surgery No 03/04/25 09:42 Non-Smoker Yes 03/04/25 09:42 Duration of Surgery greater Yes 03/04/25 09:42 than 60 minutes Number of Risk Factors 3 03/04/25 09:42 PONV Score Moderate Risk 03/04/25 09:42 Height & Weight Height & Weight: Anesthesia: Height & Weight Height 5 ft 6.5 in 03/18/25 06:08 Weight: 65 kg 03/18/25 06:08 Body Mass Index (BMI) 22.8 03/18/25 06:08 Respiratory Assessment Respiratory Assessment - english language arts teacher: Respiratory Tract Infection Hx - english language arts teacher Hx Respiratory Tract Infection No 03/04/25 09:42 STOP Sleep Apnea STOP Sleep Apnea - english language arts teacher: STOP Sleep Apnea - english language arts teacher Hx Hypertension No 03/04/25 09:42 Hx Sleep Apnea No 03/04/25 09:42 CPAP BIPAP Do you snore loudly (louder No 03/04/25 09:42 than talking or can be heard Do you often feel tired/ No 03/04/25 09:42 fatigued/ sleepy during daytime? Has anyone observed you stop No 03/04/25 09:42 breathing during sleep? STOP Results Negative 03/04/25 09:42 QUESTION #5 FULL TEXT : Do you snore loudly (louder than talking or can be heard through closed doors)? 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 Specify any problems Hx of Preganancy in last 3 N/A 03/04/25 09:42 Months Nurse Filling Out Transfusion NBUCHER 03/04/25 09:42 & Questions: Date: 03/04/25 03/04/25 09:42 Time: 09:43 03/04/25 09:42 Patient unable to answer at this time (ie. 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: /Reproductive Hx- english language arts teacher Hx Now No 03/04/25 09:42 Gestational Age (in weeks): EDC: Hx Hx Para Hx Section SAB No 03/14/25 15:51 Does the father of the baby or his family experience fever w Father of the baby Malignant Hypertension history comment Active Medications Active Medications: Current Medications Generic Name Dose Route Start Last Admin Trade Name Freq PRN Reason Stop Dose Admin Acetaminophen 1,000 mg 03/18/25 07:30 03/18/25 06:17 Acetaminophen 500 Mg Tablet PO 03/18/25 07:31 1,000 mg PREOP ONE Administration Celecoxib 400 mg 03/18/25 07:30 03/18/25 06:17 Celecoxib 200 Mg Capsule PO 03/18/25 07:31 400 mg PREOP ONE Administration Gabapentin 600 mg 03/18/25 07:30 03/18/25 06:19 Gabapentin 600 Mg Tablet PO 03/18/25 07:31 600 mg PREOP ONE Administration Cefotetan Disodium 2 gm/ 100 mls @ 200 mls/hr 03/18/25 07:00 Sodium Chloride IV 03/18/25 07:29 INTRAOP ONE Lactated Ringer's 1,000 mls @ 40 mls/hr 03/18/25 07:30 03/18/25 06:20 IV 40 mls/hr .Q25H SELMA Administration Lactated Ringer's 1,000 mls @ 70 mls/hr 03/18/25 07:30 IV .[id number] SELMA Magnesium Sulfate 1 gm/ 102 mls @ 408 mls/hr 03/18/25 07:30 03/18/25 06:19 Dextrose IV 03/18/25 07:44 408 mls/hr PREOP ONE Administration Insulin Human Lispro 0 unit 03/18/25 07:30 Insulin Lispro 100 Unit/Ml Insuln.Pen SC 03/18/25 13:00 Q4H PRN PRN BG >/= 180, SEE PROTOCOL Protocol Ondansetron HCl 4 mg 03/18/25 07:30 Ondansetron 4 Mg/2 Ml Vial IV 03/18/25 07:31 INTRAOP ONE Phenazopyridine HCl 190 mg 03/18/25 07:30 03/18/25 06:19 Phenazopyridine 95 Mg Tablet PO 03/18/25 07:31 190 mg PREOP ONE Administration Scopolamine HBr 1 patch 03/18/25 07:30 03/18/25 06:18 Scopolamine 1mg/72hr Patch TD 03/18/25 07:31 1 patch PREOP ONE Administration PFSH Medical History History of steroid therapy Wears contact lenses Post-menopausal Cancer Arthritis Gastric reflux Non-smoker Urinary tract infection, site not specified Cyst Uterine prolapse Skin cancer Osteopenia Melanoma Allergies Basal cell carcinoma Home Medications ?Medication ?Instructions ?Recorded ?Last Taken ?Type calcium carbonate (Calcium 500) 500 mg PO BID 04/15/17 Unknown History multivitamin,bz-afzq-[id number] 1 tab PO DAILY 04/20/19 Unknown History (Complete Multivitamin tablet) estradiol 0.01% (0.1 mg/gram) See Rx Instructions vagi nal 12/21/24 Unknown Rx vaginal cream .COMPLEX #42.5 grams niacinamide 500 mg tablet 500 mg PO BID 02/15/25 Unkno wn History amoxicillin 500 mg-potassium 1 tab PO BID #10 tabs 02/26 Unknown Rx clavulanate 125 mg tablet (Augmentin) fluconazole 100 mg tablet See Rx Instructions PO QDAY #6 tabs 03/14/25 Unknown Rx hydroxyzine pamoate 50 mg capsule 50 mg PO QHS PRN rd mnia #20 caps 03/14/25 Unknown Rx Allergy/AdvReac Type Severity Reaction Status Date / Time Environmental Allergies: Allergy Other Verified 03/14/25 15:44 Uncoded (seasonal) Family History Father Diabetes Heart disease Multiple myeloma Mother Osteoporosis Alzheimers disease Aunt Breast cancer 3 maternal aunts Other Colon cancer Myocardial infarction Surgical History History of colonoscopy H/O arthroscopic knee surgery H/O rotator cuff surgery Total knee replacement status Social History Smoking Status: Never smoker alcohol intake: current details: socially 3x per week substance use type: does not use caffeine: Yes what type of physical activity do you participate in: walking, aerobics and weight training frequency: 5-6 times per week seatbelt use: always do you feel safe at home: Yes additional social history: [place]- Self Employed Review of Systems (Anesthesia) ROS Narrative System reviewed and no additional complaints, except as documented.
--- NOTE | 2025-03-18 07:20 | PCM.HP.BLA ---
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: No Is patient in pain?: No Allergies Environmental Allergies: Uncoded (seasonal) Allergy (Verified 03/14/25 15:44) Other Medications ?Medication ?Instructions ?Recorded ?Confirmed ?Type calcium carbonate (Calcium 500) 500 mg PO BID 04/15/17 03/14/25 History multivitamin,hk-sbfb-tfhtfzcs 1 tab PO DAILY 04/20/19 03/14/25 History (Complete Multivitamin tablet) estradiol 0.01% (0.1 mg/gram) See Rx Instructions vaginal 12/21/24 03/14/25 Rx vaginal cream .COMPLEX #42.5 grams niacinamide 500 mg tablet 500 mg PO BID 02/15/25 03/14/25 History amoxicillin 500 mg-potassium 1 tab PO BID #10 tabs 03/14/25 03/14/25 Rx clavulanate 125 mg tablet (Augmentin) fluconazole 100 mg tablet See Rx Instructions PO QDAY #6 tabs 03/14/25 03/14/25 Rx hydroxyzine pamoate 50 mg capsule 50 mg PO QHS PRN inomnia #20 caps 03/14/25 03/14/25 Rx Is last menstrual period known: No Post menopausal: Yes Patient : No : No PFSH Medical History History of steroid therapy Wears contact lenses Post-menopausal Cancer Arthritis Gastric reflux Non-smoker Urinary tract infection, site not specified Cyst Uterine prolapse Skin cancer Osteopenia Melanoma Allergies Basal cell carcinoma Surgical History History of colonoscopy H/O arthroscopic knee surgery H/O rotator cuff surgery Total knee replacement status Family History Father Diabetes Heart disease Multiple myeloma Mother Osteoporosis Alzheimers disease Aunt Breast cancer 3 maternal aunts Other Colon cancer Myocardial infarction Social History Smoking Status: Never smoker alcohol intake: current details: socially 3x per week substance use type: does not use caffeine: Yes what type of physical activity do you participate in: walking, aerobics and weight training frequency: 5-6 times per week seatbelt use: always do you feel safe at home: Yes additional social history: [place]- Self Employed HPI HYST *OK PER JV Details: The patient is a 69-year-old female with a history of fibroids presenting for a scheduled total robotic hysterectomy with bilateral salpingo-oophorectomy and pelvic prolapse repair with both myself and Dr. Ewing PROCEDURE: PELVIC W/ TRANSVAGINAL REASON FOR EXAM: CYSTOCELE AND RECTOCELE TECHNIQUE: Procedure Code: [id number] Modality: US Procedure: PELVIC W/ TRANSVAGINAL COMPARISON: None FINDINGS: Patient is postmenopausal. Measurements: Uterus: 9.1 cm x 6 cm x 4.2 cm with a volume of 121.7 mL Endometrial Thickness: 14 mm Right Ovary: 3 cm x 1.4 cm x 1.4 cm with a volume of 3.1 mL. Left Ovary: 2.5 cm x 2.6 cm x 1.3 cm with a volume of 4.5 mL. TRANSABDOMINAL: Uterus: There is an 8 cm x 7.2 cm 5.5 cm calcified fibroid in the fundal portion of the uterus. Endometrium: The endometrium is thickened measuring 14 mm. Small amount of fluid is seen. Right ovary: Normal size and echotexture. Left ovary: Normal size and echotexture. Other: No large pelvic mass identified. Transvaginal sonography was performed to better visualize the endometrium. TRANSVAGINAL: Uterus: Retroverted. Large fundal fibroid with calcification. Endometrium: The endometrium is thickened and measures 14 mm. It is heterogeneous with multiple cystic structure. Right ovary: Normal size and echotexture. Left ovary: Normal size and echotexture. Other adnexal findings: None. Cul-de-sac: No free intraperitoneal fluid identified. Tenderness: No tenderness US/Pelvic w/ Transvaginal IMPRESSION: Fibroid uterus. Thickening of the endometrium as described. Clinical correlation recommended. Preoperative Preparation - Scheduled for a total robotic hysterectomy with bilateral salpingo-oophorectomy on Friday at 7:30 AM. - Has been provided with ERAS (Enhanced Recovery After Surgery) instructions, including carbohydrate drinks and body wash. - Inquired about the use of a stool softener postoperatively and was advised to start on . - Expressed anxiety about the upcoming surgery and requested medication to help with sleep the night before. Recent UTI - Had a preoperative appointment last Friday, during which a urine sample was taken. - Received a call this morning informing her of yeast in the urine sample; was prescribed an antifungal and an antibiotic. - Denies any symptoms of a UTI. Current Medications and Supplements - Antifungal - Antibiotic History 6 Elective abortions Hx Para 4 Spontaneous abortions Hx # Term Pregnancies Ectopic pregnancies Hx # Pregnancies Multiple births # of living children Past Pregnancies Del. Date Name GA/Weeks Outcome Route Bth Weight Infant Gen Labor Lgth Anesthesia Del Locatn Provider FOB Unknown 1982 [place] Unknown 1983 Jose Manuel Unknown 1986 Fredy Unknown 1988 Jose Rafael ROS Const ROS Unobtainable: All systems reviewed & are unremarkable except as noted in H Resp Resp: Reports system reviewed and no additional complaints, except as documented; Denies cough GI GI: Reports as per HPI Psych Psych: Reports system reviewed and no additional complaints, except as documented Exam Const General: cooperative, healthy appearing, comfortable and no acute distress Resp Effort & Inspection: normal respiratory effort Skin General: no rashes or lesions noted Psych Appearance: grossly normal Speech and Movement: speech and movement normal Coding Level of Care Code Off vis,est,level 4 Diagnoses Uterine leiomyoma, unspecified location D25.9 Uterine leiomyoma location: unspecified location Cystocele with rectocele N81.10; N81.6 Assessment and Plan Assessment and Plan (1) Uterine fibroid: Status: Acute Qualifiers: Uterine leiomyoma location: unspecified location Qualified Code(s): D25.9 - Leiomyoma of uterus, unspecified Comment: 8cm (2) Cystocele with rectocele: Status: Acute Medications: New hydroxyzine pamoate 50 mg PO QHS PRN 20 caps 0RF inomnia Plan Intramural and submucous leiomyoma of uterus (D25.1) - Reviewed prior notes from Dr. Gandara regarding patient's history and upcoming procedure. - Total robotic hysterectomy, bilateral salpingo-oophorectomy, and cystoscopy scheduled for Friday at 0730; patient to arrive at 0600. - Discussed surgical procedure in detail, including use of uterine manipulator, DaVinci robotic system, and expected duration. - Reviewed potential risks: infection, damage to surrounding organs (especially bladder), possible need for bladder incision and temporary catheterization, and blood transfusion; patient denied spiritism objections to transfusion. - Discussed Enhanced Recovery After Surgery (ERAS) protocol: instructed patient to drink 1 carbohydrate-electrolyte beverage with lunch and dinner the day before surgery, and 1 with breakfast the morning of surgery; no solid food after midnight. - Provided preoperative body wash with instructions to use night before and morning of surgery, and to sleep on clean sheets. - Advised patient to start stool softener on and continue daily after surgery. - Prescribed Vistaril for preoperative anxiety and sleep the night before surgery. - Discussed postoperative pain management and potential need for additional antibiotics if Riddle catheter is required. - Instructed patient to use clinic pharmacy for postoperative prescriptions to avoid additional stops after discharge. - Patient expressed understanding of procedure, risks, and preoperative instructions. - Follow-up: Patient to be contacted before 1500 to confirm surgery time. Treatment: - Provided ERAS (Enhanced Recovery After Surgery) materials, including carbohydrate drinks and body wash, with instructions for use pre-operatively. - Discussed importance of using a stool softener post-operatively; patient may start on . - Prescribed Vistaril to aid sleep the night before surgery. - Surgery scheduled for Friday at 07:30; patient to arrive at 06:00. - Instructed patient to expect a call on to confirm surgery time. - Will check CBC at [facility]. - Patient to continue current antibiotic and antifungal treatment as prescribed by Dr. Gandara. - Discussed potential for a Riddle catheter post-surgery and provided education on self-removal if needed. - Instructed patient to maintain good health and avoid any potential sources of infection prior to surgery. - Advised patient to get plenty of rest and stay hydrated.
--- NOTE | 2025-03-18 07:36 | DCINST_ITS ---
Discharge Instructions DC O2, CPAP, BIPAP needs Home O2 Discharge instructions: No Dressing / Incision Discharge Activity: May Shower May resume sexual activity in: 8 weeks Weight Bearing Status: Full weight bearing Lifting Restrictions: 10 pounds for 2 weeks Dressing / Incision Call your doctor if your incision/area has: Continuous Slow Oozing, Sudden I ncreased Bleeding, Increased Pain/ Swelling, Increased Redness and Foul Smelling Discharge Call your doctor if you observe: Fever of 101 or Higher, Using more than 1 pad per hour, Shortness of breath, Chest pain and Uncontrolled pain Suture Line Care: Avoid Pulling/Pushing and Avoid Pinching/Bending Remove Dressing in: 1 week (if present) Cleanse incision/area with: Soap & Water and Keep Dressing Clean & Dry Follow Up Care Please Follow Up With: Donita Rush DO When: Call to make an appointment with your doctor for a postop visit in 2 and 6 weeks Test Results: Test results from this visit will be discussed in further detail at your follow- up appointment, if applicable. Discharge Plan Admission Primary Reason for Your Visit: hysterectomy and vaginal repair Attending Provider: Donita Rush Primary Care Provider: Mohan King Consulting Providers: Elizabeth Byrne Instructions Print Language: Grenadian Discharge Orders/Prescriptions Prescriptions: New ibuprofen 800 mg tablet 800 mg PO Q8H PRN (Reason: pain) Qty: 30 0RF oxycodone-acetaminophen [Percocet] 5-325 mg tablet 1 tab PO Q4H PRN (Reason: pain) 7 Days Qty: 20 0RF Continued calcium carbonate [Calcium 500] 500 mg calcium (1,250 mg) tablet 500 mg PO BID Complete Multivitamin Tablet 1 tab PO DAILY estradiol 0.01 % (0.1 mg/gram) cream See Rx Instructions vaginal .COMPLEX Qty: 42.5 2RF Rx Instructions: small amount(.25mg) as directed vaginal every other day X 4 weeks then twice a week; hydroxyzine pamoate 50 mg capsule 50 mg PO QHS PRN (Reason: inomnia) Qty: 20 0RF niacinamide 500 mg tablet 500 mg PO BID fluconazole 100 mg tablet See Rx Instructions PO QDAY Qty: 6 0RF Rx Instructions: take 2 tabs on day one, and then one daily until gone orally daily; amoxicillin-pot clavulanate [Augmentin] 500-125 mg tablet 1 tab PO BID Qty: 10 0RF Other Ambulatory Orders: 12 Lead EKG (Routine) Location: None Selected Ordered By: Dr. Donita Rush Referrals / Follow Up: Mohan King DO [Primary Care Provider, Medical] Disposition Disposition (needs filled in before D/C Order can be placed): Home, Self Care
[2025-03-18] MEDS: Lidocaine 1% (5 ml sdv) 5 ML Vial IV (07:38)
[2025-03-18] MEDS: fentaNYL 100 MCG/2 ML Ampul IV (07:38)
--- NOTE | 2025-03-18 09:18 | OP.PCM_ITS ---
Operative Report (Standard) Operative Information Date of Procedure: 03/18/25 Pre-Operative Diagnosis: large fibroid uterus and pelvic organ prolapse Post-Operative Diagnosis: large fibroid uterus and pelvic organ prolapse Surgery/Procedure Performed: total robotic hysterectomy, bilateral salpingo- oophorectomy public works commissioner: Yes Requirements Analyst: Manuel Monzon Tasks completed by first calender worker: Closing, Insert Trochanter, Retracting and Other (irrigation ) Additional school bus driver/teacher assistant?: Yes Type of Anesthesia: General RN Documented Start/Stop Times: Operation Date: 03/18/25 07:30 Case Time Into Pre-Op 03/18/25 05:30 Out of Pre-Op 03/18/25 07:25 Anesthesia Start 03/18/25 07:33 Into Room 03/18/25 07:33 Procedure Start 03/18/25 08:04 Procedure Start Time: 07:33 Select all DRAINS/GRAFTS/IMPLANTS that apply: None
--- NOTE | 2025-03-18 09:18 | PCM.OPRPT ---
Multi Select Codes Urinary/Genital Urinary/Genital CPT Codes: 63936 TLH+BS/O >250gr uterus Operative Report (Standard) Operative Information Date of Procedure: 03/18/25 Pre-Operative Diagnosis: large fibroid uterus and pelvic organ prolapse Post-Operative Diagnosis: large fibroid uterus and pelvic organ prolapse Surgery/Procedure Performed: total robotic hysterectomy, bilateral salpingo-oophorectomy airport sales agent: Yes Supervisor Word Processing: Manuel Monzon Tasks completed by investment sales assistant: Closing, Insert Trochanter, Retracting and Other (irrigation ) Additional library assistant?: Yes Additional Twx Operator #2: Elizabeth Byrne Tasks completed by library assistant #2: Other (Performance of cystoscopy and vaginal repair, dictated separately) Type of Anesthesia: General RN Documented Start/Stop Times: Operation Date: 03/18/25 07:30 Case Time Into Pre-Op 03/18/25 05:30 Out of Pre-Op 03/18/25 07:25 Anesthesia Start 03/18/25 07:33 Into Room 03/18/25 07:33 Procedure Start 03/18/25 08:04 Procedure Start Time: 07:33 Select all DRAINS/GRAFTS/IMPLANTS that apply: None Estimated Blood Loss: 20cc Specimen collected: Yes Description of specimen(s) removed: uterus, tubes, ovaries Description of surgery: Findings: 9 cm size uterus with at least a 12 cm fundal fibroid, normal appearing ovaries and tubes. On exploration of the abdominal cavity the uterus, adnexa, bowel, and liver were found to be normal with the exception of the fibroid and right IP ligament varicositiese. Cystoscopy showed no evidence of leaking at approximately 250 cc of normal saline, positive ureteral orifices and jet flow are seen and no suture material was appreciated in the bladder. This part of the procedure was performed by Dr. Byrne Specimens removed: Uterus and cervix, Bilateral tubes and ovaries Reason for surgery: This is a 69-year-old who presented to my office with history of the complaint of pelvic prolapse and pelvic pressure ultrasound showed a large fibroid uterus. Her uterus was noted to be prolapsed to a grade 2 prolapse. The planned procedure is for a robotic hysterectomy the risks benefits and alternatives were discussed with the patient the patient had a clear understanding of the procedure and a consent form was signed. She is also consented for a possible anterior posterior repair bilateral sacrospinous ligament fixation and possible mid urethral sling and cystoscopy with bilateral ureteral catheterization that will be performed by the urologist Dr. Byrne Procedure: The patient was placed in the dorsal low lithotomy position and prepped and draped in the normal sterile fashion both abdominally and in the perineum. Her legs were placed in stirrups a Riddle catheter was inserted into the urethra without difficulty. A weighted speculum was placed in the vagina and a single-tooth tenaculum was used to grasp the anterior lip of the cervix. An advincvBrand uterine manipulator was inserted through the cervix without complication. It was then tied into place at the 2 and 10:00 locations on the cervix. Gloves were changed and attention was turned towards the abdomen. Approximately 23 cm above the pubic symphysis in the midline, and after Marcaine injection, a 8 mm incision was made. An 8 mm trocar was inserted through the laparoscope, then inserted into the abdomen under direct visualization using the laparoscope. Good abdominal placement was noted and no complications were appreciated. An air seal device was utilized to create pneumoperitoneum. At 12 cm lateral to the midline on the left and right sides 8 mm accessory ports were placed. Next a left upper quadrant 8 mm library assistant port site was placed. The patient was placed in steep Trendelenburg position. The robot was docked. The hysterectomy was initiated first by taking down the round ligament on each side using the vessel sealer device. The peritoneum between the round ligament and the IP ligament was opened using electrocautery and extended the length of the IP ligament. The IP ligament was then taken down using the vessel sealer device. These areas were freed without complication and this removed the ovaries from the pelvic sidewall. The broad ligament was then and taken down using the vessel sealer device. Next the bladder flap was taken down without complication. This was done using monopolar cautery to the level of the cervical vaginal junction. After the bladder flap was created, uterine vessels were then isolated and cauterized using the vessel sealer device and EndoShears. At this point the uterine vessels were taken down further starting from the ascending branch, dissecting along the edges of the cervix to the level of the cervical vaginal junction with hemostasis appreciated. The cervical vaginal junction was then using monopolar cautery in a circumferential pattern across the superior aspect of the cervix. The specimen was delivered through the vagina however the fibroid a avulsed from the uterus upon removal and was removed separately with Antonio clamps and then sent to pathology. The remaining vaginal cuff was then closed using a V lock suture. This was performed in a running technique. Excellent hemostasis was obtained and good closure was noted. Irrigation was then performed. All operative sites were noted to be hemostatic. A cystoscopy was performed with a 70 degree cystoscope through the urethra into the bladder without complication. The bladder was instilled with approximately 250 cc of normal saline. Intraoperative images were made. Ureteral orifices and jets were identified. No suture material was appreciated in the bladder. The bladder was then drained and cystoscope was removed. This part was performed by Dr. Byrne The abdominal cavity was again examined using the laparoscope after the robot was undocked. All operative sites were noted to be hemostatic. The trochars were removed under direct visualization without complication and pneumoperitoneum was reduced. At this point the skin was then closed using 4-0 Monocryl subcuticular stitch and sealed with surgical glue. The patient tolerated the procedure well sponge lap and needle counts were correct x2 the the rest of the procedure involving the AMP repair mid urethral sling and sacrospinous ligament fixation will be performed by Dr. Byrne and dictated separately Surgical Findings: Large fundal anterior fibroid normal-appearing ovaries and fallopian tubes, right IP ligament varicosities. Complications Complications: No Admit VTE Documentation VTE Present on Admission: No VTE Mechan Device Prophylaxis: SCD's VTE Pharm Prophylaxis ordered?: Yes
[2025-03-18] MEDS: dexMEDEtomidine 200 MCG/2 ML ML 28 MCG IV (09:37)
[2025-03-18] MEDS: Lidocaine 1% /Epi 1:100 (20ml) 20 ML Vial (10:15)
[2025-03-18 11:28] LABS: Hematocrit 39.8 % (37-47); Hemoglobin 13.1 g/dL (12.0-15.0); Immature Granulocytes Count 0.040 X10^3/uL (0.0-0.0); Mean Corp Hgb Conc 32.9 g/dL (32-36); Mean Corpuscular Volume 92.1 fL (81-99); Mean Platelet Vol. 9.6 fl (6.2-12.0); NRBC Flagged by Analyzer 0 % (0-5); POSITIVE DIFFERENTIAL YES; Platelet Count 182 K/mm3 (150-450); RBC Distribution Width CV 13.2 % (11.6-14.6); RBC Distribution Width SD 44.6 fl (35.1-43.9); Red Blood Count 4.32 M/mm3 (4.2-5.4); White Blood Count 8.8 K/mm3 (4.4-11.0)
[2025-03-18 11:52] LABS: Anion Gap 10 (5-15); BUN 18 mg/dL (4-19); BUN/Creat Ratio 20.1 RATIO (10-20); Calcium,Total 8.9 mg/dL (7.6-11.0); Carbon Dioxide 23.8 mmol/L (21.0-32.0); Chloride 105 mmol/L (98-108); Estimated Creatinine Clearance 58.07 ml/min (50-250); Glucose 164 mg/dL (70-99); Potassium 3.9 mmol/L (3.3-5.1)
--- NOTE | 2025-03-18 12:30 | PCM.OPRPT ---
Multi Select Codes Urology Urology Charge Forwarding-multi code: [id number] Cysto Bladder w/ Ureteral Catheterizaion, 93269 Repair Bladder & Rectum and 17254 Sling Operation Stress Incontinence Operative Report (Standard) Operative Information Date of Procedure: 03/18/25 Pre-Operative Diagnosis: Cystocele, rectocele, incomplete uterovaginal prolapse, stress incontinence Post-Operative Diagnosis: Cystocele resolved following hysterectomy Surgery/Procedure Performed: Posterior repair, mid urethral sling insertion, cystourethroscopy with bilateral ureteral catheterization pharmacist hospital: No Type of Anesthesia: General RN Documented Start/Stop Times: Operation Date: 03/18/25 07:30 Case Time Into Pre-Op 03/18/25 05:30 Out of Pre-Op 03/18/25 07:25 Anesthesia Start 03/18/25 07:33 Into Room 03/18/25 07:33 Procedure Start 03/18/25 08:04 Procedure End 03/18/25 10:45 Anesthesia End 03/18/25 10:47 Out of Room 03/18/25 10:47 Into Recovery 03/18/25 10:50 Procedure Start Time: 09:30 Procedure Stop Time: 10:45 Select all DRAINS/GRAFTS/IMPLANTS that apply: Graft Graft details: Altis mid urethral sling Estimated Blood Loss: 50 cc Specimen collected: No Description of surgery: The patient was taken to the operating room and placed on the operating room table. Anesthesia monitored the head, neck, airway, IV access and vital signs throughout the case. Once anesthesia was appropriately administered, she was prepped and draped in usual sterile fashion. Dr. Jim completed her portion of the procedure including closure of the cuff. The case was then turned to md. The patient was in dorsal lithotomy position. The Riddle catheter was removed and the cystoscope was inserted through the urethra under direct visualization into the urinary bladder. Visualization of the bladder revealed no evidence of laceration, injury or foreign body. Each ureteral orifice was cannulated with a 5 Portuguese whistle-tip catheter which advanced easily to 20 cm bilaterally without evidence of injury or obstruction. The cystoscope was then removed and the Riddle catheter was inserted with 10 cc in the balloon. It was left to straight drain. The anterior vaginal wall no longer revealed defect. The apex was well supported. The decision was made to proceed with posterior repair and mid urethral sling insertion. The posterior vaginal wall was isolated with Allis clamps and injected submucosally for hemostatic control and tissue dissection. A midline incision was made. Sharp and blunt dissection was performed until the rectovaginal fascia was identified bilaterally and the top of the defect was reached apically. At this time the rectovaginal fascia was brought together in a 2 layer repair using interrupted 2-0 Vicryl. The perineal body was reconstructed also using 2-0 PDS. At this time the excess vaginal mucosa was trimmed and brought together in a running interlocking 2-0 Vicryl closure. Attention was turned toward the mid urethra where once again vasopressin was injected for hydrostatic dissection and hemostatic control. A midline incision was made. Sharp and blunt dissection was performed on either side of the urethra with care being taken to avoid entrance into the urethra or the vaginal mucosa. Using the trocars from the provided kit, the Altis mid urethral sling was placed into the transobturator complexes bilaterally. The sling lay flat against the urethra and was tensioned using the tensioning suture. This was then cut. The midline incision was then closed with running interlocking 2-0 Vicryl. The patient was then taken out of Trendelenburg and the Riddle catheter was removed. The cystoscope was inserted under direct visualization into the urinary bladder. There was no injury identified at this time. Once again the whistle-tip catheter was used to cannulate each ureteral orifice and advanced easily without evidence of obstruction or injury. The cystoscope was then removed. The Riddle catheter was replaced with 10 cc in the balloon. The vaginal lumen was packed with plain packing and estrogen cream. The patient was then awakened and taken to the recovery room in good condition. There were no complications during the procedure. Surgical Findings: No cystocele or apical defect following hysterectomy and cuff closure Complications Complications: No Admit VTE Documentation VTE Present on Admission: Yes VTE Mechan Device Prophylaxis: SCD's VTE Pharm Prophylaxis ordered?: Yes
--- NOTE | 2025-03-18 12:38 | DCINST_ITS ---
Discharge Instructions Diet Discharge Diet: No restrictions Activity Discharge Activity: May Shower May resume sexual activity in: 8 weeks Weight Bearing Status: Full weight bearing Lifting Restrictions: 5 pounds Additional Activity Instructions:: No strenuous activity or exercise, no dog walking, no swimming, hot tubs or tub bathing Dressing / Incision Call your doctor if your incision/area has: Continuous Slow Oozing, Sudden Increased Bleeding, Increased Pain/ Swelling, Increased Redness and Foul Smelling Discharge Call your doctor if you observe: Fever of 101 or Higher, Using more than 1 pad per hour, Shortness of breath, Chest pain and Uncontrolled pain Suture Line Care: Avoid Pulling/Pushing and Avoid Pinching/Bending Cleanse incision/area with: Soap & Water and Keep Dressing Clean & Dry Follow Up Care Please Follow Up With: Donita Rush DO When: Test Results: Test results from this visit will be discussed in further detail at your follow- up appointment, if applicable. Discharge Plan Admission Admit Date/Time: 03/18/25 11:01 Primary Reason for Your Visit: hysterectomy and vaginal repair Attending Provider: Donita Rush Primary Care Provider: Mohan King Consulting Providers: Elizabeth Byrne Discharge Orders/Prescriptions Prescriptions: New ibuprofen 800 mg tablet 800 mg PO Q8H PRN (Reason: pain) Qty: 30 0RF oxycodone-acetaminophen [Percocet] 5-325 mg tablet 1 tab PO Q4H PRN (Reason: pain) 7 Days Qty: 20 0RF Continued calcium carbonate [Calcium 500] 500 mg calcium (1,250 mg) tablet 500 mg PO BID Complete Multivitamin Tablet 1 tab PO DAILY estradiol 0.01 % (0.1 mg/gram) cream See Rx Instructions vaginal .COMPLEX Qty: 42.5 2RF Rx Instructions: small amount(.25mg) as directed vaginal every other day X 4 weeks then twice a week; hydroxyzine pamoate 50 mg capsule 50 mg PO QHS PRN (Reason: inomnia) Qty: 20 0RF niacinamide 500 mg tablet 500 mg PO BID fluconazole 100 mg tablet See Rx Instructions PO QDAY Qty: 6 0RF Rx Instructions: take 2 tabs on day one, and then one daily until gone orally daily; amoxicillin-pot clavulanate [Augmentin] 500-125 mg tablet 1 tab PO BID Qty: 10 0RF Other Ambulatory Orders: 12 Lead EKG (Routine) Location: None Selected Ordered By: Dr. Donita Rush Referrals / Follow Up: Mohan King DO [Primary Care Provider, Medical] Disposition Disposition (needs filled in before D/C Order can be placed): Home, Self Care
[2025-03-18] MEDS: Lactated Ringers 1,000 ML 100 ML IV (12:55)
--- NOTE | 2025-03-18 13:21 | SUR.PHASEI ---
PATIENT SITTING UP IN BED DRINKING COFFEE WITHOUT ANY DIFFICULTY; BP 94/64, HR 67
[2025-03-18] MEDS: Lactated Ringers @ 70 MLS/HR 70 ML IV (14:44)
--- NOTE | 2025-03-19 01:32 | PCM.POST.ANE ---
Anesthesia: Postop Eval I Current Vital Signs Temperature: 97.4 F Pulse Rate: 68 Blood Pressure: 96/65 Respiratory Rate: 16 Pulse Ox: 92 Oxygen Delivery Method: Room Air Assessment Airway patent: Yes Spontaneous unlabored respirations: Yes nausea: No Vomiting: No Anesthesia Complication: No Fluid Hydration Crystalloid volume administer (ml): 1,200 Total IV fluid infused: 1,200 Progress Note Anesthesia document: Postop Eval 1 completed: Yes
[2025-03-19 01:38] VITALS: BP 96/65; PULSE 68; RESP 16; TEMP 36.3; O2SAT 92
--- NOTE | 2025-03-19 01:39 | PCM.POSTANE2 ---
Anesthesia Postop Eval I Sum Postop Eval Completion status Anesthesia document: Postop Eval 1 completed: Yes Anesthesia Postop Eval I Summary Anesthesia Postop Eval I Summary: Anesthesia Postop Eval I: Assessment Summary Airway patent Yes 03/19/25 01:38 Spontaneous unlabored Yes 03/19/25 01:38 respirations Mental status nausea No 03/19/25 01:38 Vomiting No 03/19/25 01:38 Anesthesia Postop Eval I: Fluid Summary Crystalloid volume administer 1,200 03/19/25 01:38 (ml) Colloids volume administered ( ml) Blood Product volume administered (ml) Total IV fluid infused 1,200 03/19/25 01:38 Anesthesia Postop Eval I: Summary Notes Anesthesia Complication No 03/19/25 01:38 Anesthesia Complication Comment: Post-operative progress note Anesthesia: Postop Eval II Evaluation Mental status: Awake and Calm Pain Level: 1 nausea: No Vomiting: No Complications Anesthesia Complication: No
[2025-03-19 01:55] VITALS: BP 114/78; PULSE 73; RESP 14; TEMP 36.9; O2SAT 96
[2025-03-19] MEDS: Lactated Ringers @ 70 MLS/HR 70 ML IV (05:28)
[2025-03-19 05:31] VITALS: BP 118/72; PULSE 75; RESP 16; TEMP 36.8; O2SAT 95
[2025-03-19 07:42] VITALS: BP 134/90; PULSE 60; RESP 16; TEMP 36.6; O2SAT 99
--- NOTE | 2025-03-19 09:24 | PCM.PN.GU ---
Subjective Subjective The patient did well overnight. Pain is well-controlled. No nausea or vomiting. She does feel like she is full of gas. She is tolerating oral intake fluid and food without issue. She has been ambulating. Objective Data Objective Data Vital Signs: Vital Signs Temp Pulse Resp BP Pulse Ox O2 Del Method O2 Flow Rate 97.8 F 60 16 134/90 H 99 Non-Rebreather @ 15L/min and High Flow 4 03/19/25 07:42 03/19/25 07:42 03/19/25 07:42 03/19/25 07:42 03/19/25 07:42 03/19/25 07:42 03/18/25 12:45 Oxygen Flow Rate (L/min) 4 Oxygen Delivery Method Non-Rebreather @ 15L/min Weight: 158 lb 1.143 oz Body Mass Index (BMI) 25.4 Intake & Output: Intake and Output for Last 24 Hours 03/17/25 03/18/25 03/19/25 23:59 23:59 23:59 Intake Total 3352 / 4552 2200 / 2200 Output Total 305 / 3805 5700 / 5700 Balance 3047 / 747 -3500 / -3500 Lab / Micro Data 03/18/25 11:15 03/18/25 11:15 Labs: Laboratory Results - last 24 hr 03/18/25 11:15: WBC 8.8, RBC 4.32, Hgb 13.1, Hct 39.8, MCV 92.1, MCH 30.3, MCHC 32.9, RDW Std Deviation 44.6 H, RDW Coeff of Dre 13.2, Plt Count 182, MPV 9.6, Immature Gran % (Auto) 0.500, Neut % (Auto) 91.5 H, Lymph % (Auto) 5.9 L, [place] % (Auto) 1.6, Eos % (Auto) 0.2, Baso % (Auto) 0.3, Absolute Neuts (auto) 8.0 H, Absolute Lymphs (auto) 0.52 L, Nucleated RBC % 0, Sodium 139, Potassium 3.9, Chloride 105, Carbon Dioxide 23.8, Anion Gap 10, BUN 18, Creatinine 0.88, Estim Creat Clear Calc 58.07, Est GFR (MDRD) Non-Af 72, BUN/Creatinine Ratio 20.1 H, Glucose 164 H, Calcium 8.9 Physical Exam Const alert, oriented x3 and no apparent distress Chest inspection of chest normal Chest: symmetrical chest wall rise Resp normal respiratory effort and normal air movement Cardio regular rate GI soft to palpation and non-tender Narrative: Urine is clear in the Jett catheter. The balloon was deflated and the Jett was removed. Vaginal packing removed without incident Extremity Extremity Narrative: SCDs in place Skin no rashes or lesions noted, no jaundice, no petechiae and no mottling Neuro oriented x3, CN's II-XII intact bilaterally and moves all extremities Psych mental status grossly normal Assessment & Plan Assessment/Plan (1) Status post hysterectomy with oophorectomy: (2) Atrophic vaginitis: (3) Rectocele: (4) CHERELLE (stress urinary incontinence, female): PLAN: Plan trial of void today awaiting am labs home with or without jett
[2025-03-19 10:03] LABS: Hematocrit 38.6 % (37-47); Hemoglobin 12.7 g/dL (12.0-15.0); Immature Granulocytes Count 0.020 X10^3/uL (0.0-0.0); Mean Corp Hgb Conc 32.9 g/dL (32-36); Mean Corpuscular Volume 92.3 fL (81-99); Mean Platelet Vol. 9.8 fl (6.2-12.0); NRBC Flagged by Analyzer 0 % (0-5); Platelet Count 175 K/mm3 (150-450); RBC Distribution Width CV 13.5 % (11.6-14.6); RBC Distribution Width SD 45.8 fl (35.1-43.9); Red Blood Count 4.18 M/mm3 (4.2-5.4); White Blood Count 9.3 K/mm3 (4.4-11.0)
[2025-03-19 10:36] LABS: Anion Gap 9 (5-15); BUN 15 mg/dL (4-19); BUN/Creat Ratio 21.5 RATIO (10-20); Calcium,Total 9.1 mg/dL (7.6-11.0); Carbon Dioxide 24.8 mmol/L (21.0-32.0); Chloride 106 mmol/L (98-108); Estimated Creatinine Clearance 69.22 ml/min (50-250); Glucose 105 mg/dL (70-99); Potassium 3.8 mmol/L (3.3-5.1)
== END 2025-03-19 12:24 | disposition home or self-care (01) ==
LOC: SDC 11:17 → MS3 11:17
PROVIDERS: Urology; Admitting Provider Obstetrics & Gynecology; PCP Student in an Organized Health Care Education/Training Program; Referring Provider Obstetrics & Gynecology; Visit Provider Obstetrics & Gynecology
PROC: 0UT94ZZ Resection of Uterus, Percutaneous Endoscopic Approach (ICD-10-PCS; CPT 58571; principal; 2025-03-18 07:10)
PROC: (CPT 57260; 2025-03-18 07:10)
DX: N81.2 Incomplete uterovaginal prolapse (principal); D25.9 Leiomyoma of uterus, unspecified; K21.9 Gastro-esophageal reflux disease without esophagitis; N39.3 Stress incontinence (female) (male); Z79.899 Other long term (current) drug therapy; N76.89 Other specified inflammation of vagina and vulva; N94.89 Other specified conditions associated with female genital organs and menstrual cycle; N83.291 Other ovarian cyst, right side; N83.292 Other ovarian cyst, left side
CPT/HCPCS: 58571; 57288; S2900; 57260; 00840; 36415; 80048; 80053; 82962; 83735; 85025; 85027; 86850; 86900; 86901; 88307; 88342; 93005; 94668; 96372; 99221; C1771; A4216; C1758; G0378; J0525; J2405; J3475